=== PATIENT | female | born 1955 | race Two or more races ===

== ENCOUNTER 2020-11-08 09:01 | Outpatient (REF) | payer OTHER, SELFPAY ==
--- NOTE | 2020-11-08 09:38 | XR_ITS ---
EXAMINATION: XR KNEE, RIGHT CLINICAL INFORMATION: Right knee pain COMPARISON: None TECHNIQUE: Four views of the right knee. FINDINGS: There is mild loss of medial and patellofemoral compartment joint space. No bony erosive changes. There is calcification of the menisci. There is interstitial. Patellar enthesophyte with mild joint effusion suspected. XR/XR knee RT 4V IMPRESSION: Mild anterior suprapatellar enthesophyte and mild joint effusion. No visible acute fracture, dislocation or subluxation. Chondrocalcinosis.
[2020-11-08 11:15] LABS: Alanine Aminotransferase 9 U/L (0-31); Albumin Level 4.1 g/dL (3.5-5.0); Alkaline Phosphatase 82 U/L (39-117); Anion Gap 14 (12-20); Aspartate Amino Transferase 13 U/L (5-31); Bilirubin Total 0.4 mg/dL (0.0-1.0); Blood Urea Nitrogen 24 mg/dL (9-16); Calcium 8.4 mg/dL (8.4-10.2); Carbon Dioxide 25 mmol/L (22-29); Chloride 106 mmol/L (96-108); Cholesterol 162 mg/dL; Estimated Glomerular Filt Rate 38; Glucose Fasting 118 mg/dL (60-99); HDL Cholesterol 52 mg/dL; LDL Cholesterol Calculated 96 mg/dl; Potassium 4.6 mmol/l (3.3-5.1); Sodium 140 mmol/L (135-145); Total Protein 7.5 g/dL (6.5-8.0); Triglycerides 73 mg/dL
[2020-11-08 11:37] LABS: TSH reflex Free T4 1.01 mIU/mL (0.32-4.0); Vitamin D 25-OH Total 42.3 ng/mL (>30)
== END 2020-11-08 09:02 | disposition home or self-care (01) ==
LOC: HO.LAB 09:01
PROVIDERS: PCP Internal Medicine; Visit Provider Internal Medicine
DX: E11.22 Type 2 diabetes mellitus with diabetic chronic kidney disease (principal); E03.9 Hypothyroidism, unspecified; E55.9 Vitamin D deficiency, unspecified; M25.561 Pain in right knee
CPT/HCPCS: 36415; 73564; 80053; 80061; 82306; 84443

== ENCOUNTER → 2020-12-12 13:29 | Outpatient (BNVA) | payer OTHER, SELFPAY | PROVIDERS: Visit Provider Orthopaedic Surgery | DX: M11.261 Other chondrocalcinosis, right knee (principal); M17.11 Unilateral primary osteoarthritis, right knee; E11.65 Type 2 diabetes mellitus with hyperglycemia | CPT/HCPCS: 20610; 99202; J1100 ==

== ENCOUNTER 2021-11-19 08:00 | Outpatient (REF) | payer MEDICARE, SELFPAY ==
--- NOTE | ~2021-11-19 | MM_ITS ---
EXAMINATION: MM SCREENING DIGITAL BREAST TOMOSYNTHESIS, BILATERAL CLINICAL INFORMATION: Screening. Asymptomatic. The lifetime risk of breast cancer based on the Tyrer-Cuzick Model is 5%. COMPARISON: Mammography: 06/14/2015, 06/12/2014 TECHNIQUE: Digital breast tomosynthesis is performed in both the craniocaudal and mediolateral oblique views along with computer-aided detection (CAD). Synthesized 2D images are generated from the tomosynthesis. FINDINGS: There are scattered areas of fibroglandular density (ACR BI-RADS breast composition Category b). There are no significant masses, abnormal calcifications, or other abnormalities. There is no architectural abnormality. Scattered bilateral round and vascular calcifications are present. There are stable small bilateral incidental axillary tail nodes. The bilateral axilla and skin contours are unremarkable. There are no significant changes from prior studies. MM/MM tomosynthesis screening BI IMPRESSION: No mammographic evidence of malignancy. ASSESSMENT: BI-RADS 2: Benign RECOMMENDATION: Routine annual mammography screening. This patient's information was entered into a reminder system with a target due date for their next mammogram.
== END 2021-11-19 08:01 | disposition home or self-care (01) ==
LOC: HO.MAMMO 08:00
PROVIDERS: PCP Internal Medicine; Visit Provider Internal Medicine
DX: Z12.31 Encounter for screening mammogram for malignant neoplasm of breast (principal)
CPT/HCPCS: 77063; 77067

== ENCOUNTER 2021-12-01 09:10 | Outpatient (REF) | payer MEDICARE, SELFPAY ==
[2021-12-01 09:38] LABS: MANUAL DIFF FLAG NO
[2021-12-01 09:51] LABS: Basophils Percent Auto 0.4 % (0-2); Eosinophils Absolute Auto 0.1 X10*3/uL (0.0-0.4); Eosinophils Percent Auto 1.2 % (0-4); Hematocrit 39.1 % (37.0-47.0); Hemoglobin 12.8 g/dl (12.0-16.0); Imm Gran Abs Auto 0.01 X10*3/uL (0.00-0.03); Imm Gran Pct Auto 0.1 % (0.0-0.4); Lymphocytes Absolute Auto 2.6 X10*3/uL (1.2-4.9); Lymphocytes Percent Auto 37.3 % (20-40); Mean Corpuscular HGB Conc 32.7 g/dl (31.0-35.0); Mean Corpuscular Hemoglobin 32.1 pg (27.0-33.0); Monocytes Absolute Auto 0.7 X10*3/uL (0.1-1.2); Monocytes Percent Auto 9.7 % (2-11); Neutrophils Absolute Auto 3.5 x10*3/uL (2.0-8.3); Neutrophils Percent Auto 51.3 % (45-73); Platelet Count 182 X10*3/uL (160-400); Red Blood Count 3.99 X10*6/uL (4.20-5.50); White Blood Count 6.9 X10*3/uL (4.8-10.8)
[2021-12-01 10:02] LABS: Estimated Average Glucose 114 mg/dL; Hemoglobin A1c % 5.6 %
[2021-12-01 10:13] LABS: Creatinine Urine 57.55 mg/dL
[2021-12-01 10:21] LABS: Alanine Aminotransferase 10 U/L (0-31); Alkaline Phosphatase 68 U/L (39-117); Anion Gap 11 (12-20); Aspartate Amino Transferase 15 U/L (5-31); Bilirubin Total 0.4 mg/dL (0.0-1.0); Blood Urea Nitrogen 22 mg/dL (9-16); Calcium 9.3 mg/dL (8.4-10.2); Carbon Dioxide 26 mmol/L (22-29); Chloride 107 mmol/L (96-108); Cholesterol 172 mg/dL; Estimated Glomerular Filt Rate 40; Glucose Fasting 117 mg/dL (60-99); HDL Cholesterol 57 mg/dL; LDL Cholesterol Calculated 101 mg/dl; Potassium 4.7 mmol/L (3.3-5.1); Sodium 139 mmol/L (135-145); Total Protein 7.5 g/dL (6.5-8.0); Triglycerides 72 mg/dL
[2021-12-08 12:42] LABS: Vitamin D 25-OH, D2 <4 ng/mL; Vitamin D 25-OH, D3 38 ng/mL; Vitamin D 25-OH, Total 38 ng/mL (30-100)
== END 2021-12-01 09:11 | disposition home or self-care (01) ==
LOC: HO.LAB 09:10
PROVIDERS: PCP Internal Medicine; Visit Provider Internal Medicine
DX: E11.65 Type 2 diabetes mellitus with hyperglycemia (principal); E55.9 Vitamin D deficiency, unspecified; E78.5 Hyperlipidemia, unspecified; D64.9 Anemia, unspecified
CPT/HCPCS: 36415; 80053; 80061; 82043; 82306; 83036; 85025

== ENCOUNTER → 2022-04-16 14:49 | Outpatient (BNVA) | payer OTHER, SELFPAY | PROVIDERS: PCP Internal Medicine; Visit Provider Hospitalist | DX: J44.9 Chronic obstructive pulmonary disease, unspecified (principal); R91.8 Other nonspecific abnormal finding of lung field; F17.210 Nicotine dependence, cigarettes, uncomplicated | CPT/HCPCS: 99202 ==

== ENCOUNTER → 2022-07-14 13:43 | Outpatient (BNVA) | payer OTHER, SELFPAY | PROVIDERS: PCP Internal Medicine; Visit Provider Hospitalist | DX: J44.9 Chronic obstructive pulmonary disease, unspecified (principal); R91.8 Other nonspecific abnormal finding of lung field; F17.210 Nicotine dependence, cigarettes, uncomplicated | CPT/HCPCS: 99212 ==

== ENCOUNTER 2022-08-20 09:07 | Outpatient (REF) | payer OTHER, SELFPAY ==
[2022-08-20 10:48] LABS: Alanine Aminotransferase 9 U/L (0-31); Albumin Level 4.1 g/dL (3.5-5.0); Alkaline Phosphatase 86 U/L (39-117); Anion Gap 15 (12-20); Aspartate Amino Transferase 15 U/L (5-31); Bilirubin Total 0.5 mg/dL (0.0-1.0); Blood Urea Nitrogen 19 mg/dL (9-16); Calcium 9.1 mg/dL (8.4-10.2); Carbon Dioxide 24 mmol/L (22-29); Chloride 105 mmol/L (96-108); Cholesterol 201 mg/dL; Estimated Glomerular Filt Rate 44; Glucose Fasting 89 mg/dL (60-99); HDL Cholesterol 50 mg/dL; LDL Cholesterol Calculated 134 mg/dl; Potassium 4.2 mmol/L (3.3-5.1); Sodium 140 mmol/L (135-145); Total Protein 7.8 g/dL (6.5-8.0); Triglycerides 89 mg/dL
[2022-08-20 10:59] LABS: HIV AB/AG Nonreactive (Nonreactive); HIV Num 1 0.07 S/CO (0.00-0.99)
[2022-08-20 11:24] LABS: Creatinine Urine 294.54 mg/dL; Microalbum/Creatinine Ratio Ur 15.9 ug/mg cr
[2022-08-20 12:44] LABS: CT PCR NOT DETECTED (Not Detect.); NG PCR NOT DETECTED (Not Detect.)
[2022-08-21 06:00] LABS: Syphilis Screen Reactive (Nonreactive)
[2022-08-27 09:55] LABS: RPR Quantitative Non-Reactive (Nonreactive); T.Pallidum Particle Agg Test Reactive (Nonreactive)
== END 2022-08-20 09:08 | disposition home or self-care (01) ==
LOC: HO.XRAY 09:07
PROVIDERS: PCP Internal Medicine; Visit Provider Internal Medicine
DX: E11.22 Type 2 diabetes mellitus with diabetic chronic kidney disease (principal); I12.9 Hypertensive chronic kidney disease with stage 1 through stage 4 chronic kidney disease, or unspecified chronic kidney disease; N18.9 Chronic kidney disease, unspecified; E55.9 Vitamin D deficiency, unspecified; E78.5 Hyperlipidemia, unspecified; Z11.3 Encounter for screening for infections with a predominantly sexual mode of transmission
CPT/HCPCS: 36415; 80053; 80061; 82043; 82306; 86592; 86780; 87389; 87491; 87591

== ENCOUNTER → 2022-10-12 13:46 | Outpatient (BNVA) | payer OTHER, SELFPAY | PROVIDERS: PCP Internal Medicine; Visit Provider Hospitalist | DX: Z23 Encounter for immunization (principal); J44.9 Chronic obstructive pulmonary disease, unspecified; R91.8 Other nonspecific abnormal finding of lung field; F17.210 Nicotine dependence, cigarettes, uncomplicated | CPT/HCPCS: 90471; 90686; 99212 ==

== ENCOUNTER 2022-11-20 15:40 | Outpatient (REF) | payer OTHER, SELFPAY ==
--- NOTE | ~2022-11-20 | CT_ITS ---
EXAMINATION: CT CHEST SCREENING CLINICAL INFORMATION: Nicotine dependence. COMPARISON: None. TECHNIQUE: Multidetector volumetric CT imaging of the chest is performed without contrast using low dose technique. Additional 2D coronal and sagittal reformatted images and axial 3D maximum intensity projection (MIP) images are generated on the CT workstation. This CT examination was performed using dose optimization techniques as appropriate, variously including the following: *Automated exposure control *Adjustment of mA and/or kV according to patient size (this includes techniques or standardized protocols for targeted exams where dose is matched to indication/reason for exam; i.e. extremities or head) *Use of iterative reconstruction technique DLP: 45 mGy-cm FINDINGS: LUNGS: The lungs are well expanded. Mild atelectatic changes are seen in the right middle lobe and right lower lobe. Some ground-glass attenuation is seen in right middle and lower lobe segments. Also visualized is left lower lobe and lingular atelectasis. No consolidation, pulmonary nodules or lung collapse seen. A 3 mm calcified nodule is seen in right lower lobe posterior to inferior right pulmonary vein on axial image 280/5. MEDIASTINUM: The thyroid lobes are symmetric and normal. The central trachea and the bronchi widely patent. Heart size and the great vessels are normal caliber. Central trachea and the bronchi are widely patent. No pericardial effusion seen. CORONARY ARTERY CALCIFICATION: Mild coronary artery calcifications are present. PLEURA: There is no pleural effusion. No pleural mass or thickening. AXILLA: No abnormal axillary lymph nodes seen. UPPER ABDOMEN: Visualized liver, pancreas and bilateral adrenal glands are unremarkable. OSSEOUS STRUCTURES: No osseous abnormality seen. CT/CT lung screening IMPRESSION: 1. Atelectasis right middle lobe, lingula and bilateral lower lobes. 2. No pulmonary nodule or mass seen. 3. Trace coronary artery calcifications. ASSESSMENT: Lung-RADS category 2: Benign. RECOMMENDATION: Low-dose annual CT of the chest.
== END 2022-11-20 15:41 | disposition home or self-care (01) ==
LOC: HO.CT 15:40
PROVIDERS: PCP Internal Medicine; Visit Provider Physician Assistant Medical
DX: Z12.2 Encounter for screening for malignant neoplasm of respiratory organs (principal); F17.210 Nicotine dependence, cigarettes, uncomplicated
CPT/HCPCS: 71271; G0296

== ENCOUNTER 2023-10-12 09:24 | Outpatient (REF) | payer OTHER, SELFPAY ==
[2023-10-12 09:51] LABS: MANUAL DIFF FLAG NO
[2023-10-12 10:01] LABS: Basophils Percent Auto 0.4 % (0-2); Eosinophils Absolute Auto 0.1 X10*3/uL (0.0-0.4); Hematocrit 40.7 % (37.0-47.0); Hemoglobin 13.7 g/dl (12.0-16.0); Imm Gran Abs Auto 0.03 X10*3/uL (0.00-0.03); Imm Gran Pct Auto 0.4 % (0.0-0.4); Lymphocytes Absolute Auto 4.1 X10*3/uL (1.2-4.9); Lymphocytes Percent Auto 49.2 % (20-40); Mean Corpuscular HGB Conc 33.7 g/dl (31.0-35.0); Mean Corpuscular Hemoglobin 33.1 pg (27.0-33.0); Mean Corpuscular Volume 98.3 fL (80.0-98.0); Mean Platelet Volume 9.2 fL (9.4-12.3); Monocytes Absolute Auto 0.6 X10*3/uL (0.1-1.2); Monocytes Percent Auto 7.1 % (2-11); Neutrophils Absolute Auto 3.5 x10*3/uL (2.0-8.3); Neutrophils Percent Auto 41.9 % (45-73); Platelet Count 230 X10*3/uL (160-400); Red Blood Count 4.14 X10*6/uL (4.20-5.50); Red Cell Distribution Width 13.2 % (11.0-16.0); White Blood Count 8.3 X10*3/uL (4.8-10.8)
[2023-10-12 10:39] LABS: Alanine Aminotransferase 6 U/L (0-31); Albumin Level 3.9 g/dL (3.5-5.0); Alkaline Phosphatase 81 U/L (39-117); Anion Gap 13 (12-20); Aspartate Amino Transferase 13 U/L (5-31); Bilirubin Total 0.4 mg/dL (0.0-1.0); Blood Urea Nitrogen 8 mg/dL (9-16); Calcium 9.1 mg/dL (8.4-10.2); Carbon Dioxide 24 mmol/L (22-29); Chloride 107 mmol/L (96-108); Cholesterol 139 mg/dL (<200); Estimated Glomerular Filt Rate 40; Glucose Fasting 79 mg/dL (60-99); HDL Cholesterol 49 mg/dL (>40); LDL Cholesterol Calculated 74 mg/dL (<100); Potassium 4.2 mmol/L (3.3-5.1); Sodium 140 mmol/L (135-145); Total Protein 7.5 g/dL (6.5-8.0); Triglycerides 84 mg/dL (<150)
[2023-10-12 10:57] LABS: Vitamin D 25-OH Total 36.2 ng/mL (>30)
[2023-10-12 10:59] LABS: Vitamin B12 403 pg/mL (200-900)
[2023-10-12 12:27] LABS: Creatinine Urine 30.59 mg/dL; Microalbum/Creatinine Ratio Ur 29.4 ug/mg cr (<30)
== END 2023-10-12 09:25 | disposition home or self-care (01) ==
LOC: HO.LAB 09:24
PROVIDERS: PCP Internal Medicine; Visit Provider Internal Medicine
DX: E11.9 Type 2 diabetes mellitus without complications (principal); M51.36 Other intervertebral disc degeneration, lumbar region; E55.9 Vitamin D deficiency, unspecified; E53.8 Deficiency of other specified B group vitamins; E78.5 Hyperlipidemia, unspecified; D64.9 Anemia, unspecified
CPT/HCPCS: 36415; 80053; 80061; 82043; 82306; 82570; 82607; 82746; 85025

== ENCOUNTER 2023-10-14 11:21 | Outpatient (AMB) | payer OTHER, SELFPAY ==
[2023-10-14 12:00] VITALS: BP 132/70; PULSE 68; O2SAT 94; BMI 31.2
--- NOTE | 2023-10-14 12:00 | A.OFFPC_ITS ---
Vital Signs 10/14/23 12:00 Height 5 ft Weight 160 lb BMI 31.2 BP 132/70 Blood Pressure Location Lt brachial Position Sitting Pulse 68 Pulse Source Pulse Oximeter Pulse Oximetry (%) 94 Oxygen Delivery Method Room Air Intake Visit Reasons: cataract surgery on 10/27 Intake Note: Patient her for cataract surgery clearance 10/27 and 11/10 Cataract [facility] Issue Clerk Required: No Accompanied by: Self / Same As Patient Allergies aspirin Allergy (Intermediate, Verified 10/14/23 12:02) swelling, pruritus fentanyl Allergy (Intermediate, Verified 10/14/23 12:02) rash tramadol Allergy (Intermediate, Verified 10/14/23 12:02) nausea varenicline [From Chantix] Allergy (Intermediate, Verified 10/14/23 12:02) anxiety Medication List - Last Reconciled 10/14/23 by Tamra Perez MD amlodipine 10 mg PO DAILY 90 days atorvastatin 10 mg PO BEDTIME 90 days blood sugar diagnostic (FreeStyle Lite Strips) Use 1 test strip twice a day blood-glucose meter (FreeStyle Lite Meter kit) As directed bupropion HCl 150 mg (2 x 75 mg) PO BID 30 days cephalexin 500 mg PO Q12H 7 days cholecalciferol (vitamin D3) 50 mcg PO DAILY 90 days fluticasone propion-salmeterol 115-21 mcg/actuation (Advair HFA) 2 puffs inhalation Q12H 30 days insulin glargine (Lantus Solostar U-100 Insulin) 15 units (0.15 mL) subcut QPM 90 days latanoprost 0.005% 0 drps ophthalmic (eye) lisinopril 20 mg PO DAILY 90 days oxycodone 5 mg PO Q8H PRN 30 days pen needle, diabetic (AboutTime Pen Needle) Use 1 pen needle once a day quetiapine 400 mg PO BEDTIME quetiapine 200 mg PO BEDTIME Tobacco use date assessed: 12/03/22 Fall risk assessment: No Falls in past year Last assessed Fall Risk: 10/14/23 Dental Screening Dental Screen Date: 10/14/23 Did you have a dental visit in the last 12 months?: Yes Did you have a dental problem in the last 6 months where you did not have access to dental care?: No Was dental information given to patient?: Patient has dentist HPI HPI Comments History of Present Illness Details This is a 68-year-old female with diabetes mellitus type 2 on long-term current use of insulin, hypertension, COPD and opioid dependence due to chronic back pain that comes today for preop evaluation of bilateral cataract extraction removal and intra-ocular lens implant scheduled for October 27 and November 10. A1c in within goal. Blood pressure stable. COPD control with longstanding inhaler and use rescue inhaler prn. On opiates for chronic back pain in controlled environment. Labs are within normal limits. Denies any chest pain or shortness of breath. EKG still pending for medical clearance. She also has mild major depression stable with Seroquel. COUNT INCLUDES THE [facility] Medical History (Updated 10/14/23 @ 12:25 by Tamra Perez MD) Nicotine dependence, cigarettes, uncomplicated Type 2 diabetes mellitus COPD (chronic obstructive pulmonary disease) Chondrocalcinosis of right knee Osteoarthritis of right knee Hypovitaminosis D Opioid dependence Essential hypertension Lumbar degenerative disc disease Surgical History History of colonoscopy History of cholecystectomy (~1998) History of total abdominal hysterectomy and bilateral salpingo-oophorectomy (~1993) History of section History of lumbar discectomy (~2009) Family History Father CHF (congestive heart failure) CVD (cardiovascular disease) Mother Medical history unknown Family/Other FH: mental illness Son No problems noted. Social History Housing: Apartment Alcohol intake: never Patient Tobacco Use Status: Current everyday Tobacco user Tobacco use type: Cigarette Cigarette Packs Per Day: 0.5 Cigarettes Per Day: 10 Years Smoked: (onset 11yo, 1/2-3/4ppd x 56yrs, 35pyh) e-Cigarette/Vaping Use: Never Used Second Hand Smoke Exposure: No service: No Current occupational status: unemployed Cognitive needs: Yes Hearing needs: No Vision needs: Yes Questionnaire Thrive Questionnaire Date Thrive assessed: 12/03/22 DESMOND-7 AMB Questionnaire DESMOND-7 Date DESMOND - 7 assessed: 12/03/22 Source: Developed by Drs. Chato L. JennyJania parrish, Nico Tang and colleagues, with an educational autumn from [employer]. Review of Systems Const All systems reviewed & are unremarkable except as noted in HPI and below Eyes Reports no additional complaints, Denies change in vision and Denies other visual disturbances Card Denies chest pain at rest, Denies chest pain with activity, Denies edema, Denies irregular heart rhythm, Denies claudication, Denies dyspnea, Denies dyspnea on exertion, Denies orthopnea, Denies paroxysmal nocturnal dyspnea and Denies slow heart rate Resp Denies cough, Denies dyspnea and Denies dyspnea on exertion GI Denies abdominal pain, Denies change in bowel habits, Denies excessive flatus, Denies nausea and Denies vomiting Denies urinary incontinence, Denies urinary hesitancy and Denies urinary urgency Musc Denies abnormal gait, Denies atrophy, Denies deformity and Denies limited range of motion Skin/Breast Denies bleeding lesions, Denies changing lesions and Denies rash Neuro Denies abnormal gait, Denies behavioral changes and Denies lack of coordination Psych Denies behavioral changes Physical exam (Primary Care) Vital Signs: Last Vital Signs Pulse 68 10/14/23 12:00 BP 132/70 10/14/23 12:00 Pulse Ox 94 10/14/23 12:00 Oxygen Delivery Method Room Air 10/14/23 12:00 BMI result Body Mass Index 31.2 Tobacco/Smoking Status: Tobacco use Status Tobacco use date assessed 12/03/22 10/14/23 12:07 Patient Tobacco Use Status Current everyday Tobacco 10/14/23 12:07 Tobacco use type Cigarette 10/14/23 12:07 e-Cigarette/Vaping Use Never Used 10/14/23 12:07 Thrive Assessment: Date of Thrive Assessment Date Thrive assessed 12/03/22 10/14/23 12:07 Eyes General: appearance normal, both eyes and all related structures Eyelids: Yes eyelids normal Conjunctivae: conjunctivae normal Neck Neck: Yes normal visual inspection and Yes supple Resp Effort & Inspection: normal respiratory effort Auscultation: clear to auscultation bilaterally Cardio Jugular venous distension: no JVD Rate: regular rate Rhythm: regular rhythm Heart sounds: S1 normal heart sound present and S2 normal heart sound present Extrem General: Yes full ROM Office Procedures Flu Questionnaire Does the patient have a severe egg allergy?: No Does the patient have severe life threatening allergies?: No Does the patient have a fever or illness today?: No Has the patient ever had Guillain-[place] Syndrome?: No Has the patient ever had any past reaction to a flu shot?: No Results AMB Hemoglobin A1c AMB Hemoglobin A1c 5.5 % Last Edit by BRIANNA Quintero on 10/14/23 12:0 9 Immunizations flu vacc [id number] 6mos up(PF) 60 mcg(15 mcgx4)/0.5 mL IM syringe Performing Provider: Tamra Perez MD [facility] Administered by: BRIANNA Quintero on 10/14/23 12:19 Dose Route Admin Location Dispensed Lot Number Expiration Date NDC Internal Grinder 0.5 mL IM Left Deltoid 0.5 mL [id number] 04/23/24 [id number] [employer] VIS Given Date VIS Provided VIS Publication Date 10/14/23 Single Vaccine 21 Eligibility Eligibility Date Funding Source Not [facility] Eligible 10/14/23 Private Results Reviewed Results Reviewed: Laboratory Last Values Hgb A1c (Clinic) 5.5 % (4.0-6.0) 10/14/23 12:07 Assessment and Plan Assessment & Plan (1) Pre-op evaluation: Code(s): Z01.818 - Encounter for other preprocedural examination Plan: Labs within normal limits. EKG still pending for medical clearance. (2) Mild major depression: Code(s): F32.0 - Major depressive disorder, single episode, mild Plan: Continue Seroquel. (3) Opioid dependence: Code(s): F11.20 - Opioid dependence, uncomplicated Qualifiers: Substance use status: uncomplicated Qualified Code(s): F11.20 - Opioid dependence, uncomplicated Plan: Continue Percocet as needed. 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 A1c goal is equal or less than 7%. (5) COPD (chronic obstructive pulmonary disease): Code(s): J44.9 - Chronic obstructive pulmonary disease, unspecified Plan: Continue longstanding inhaler. Use rescue inhaler as needed. (6) Essential hypertension: Code(s): I10 - Essential (primary) hypertension Plan: Continue lisinopril. Blood pressure goal is equal or less than 130/80. 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
== END 2023-10-14 12:22 | disposition home or self-care (01) ==
PROVIDERS: PCP Internal Medicine; Visit Provider Internal Medicine
DX: E11.9 Type 2 diabetes mellitus without complications (principal); F32.0 Major depressive disorder, single episode, mild; J44.9 Chronic obstructive pulmonary disease, unspecified; Z23 Encounter for immunization; F11.20 Opioid dependence, uncomplicated; Z79.4 Long term (current) use of insulin; Z01.818 Encounter for other preprocedural examination; I10 Essential (primary) hypertension
CPT/HCPCS: 83036; 90471; 90686; 99214

== ENCOUNTER → 2023-10-14 12:26 | Outpatient (REF) | payer OTHER, SELFPAY ==
--- NOTE | 2023-10-14 12:30 | ECG_ITS ---
Test Reason : PREOP Blood Pressure : / mmHG Vent. Rate : 071 BPM Atrial Rate : 071 BPM P-R Int : 138 ms QRS Dur : 076 ms QT Int : 392 ms P-R-T Axes : 061 -18 067 degrees QTc Int : 425 ms Normal sinus rhythm Septal infarct (cited on or before 07-JUN-2014) Abnormal ECG When compared with ECG of 07-JUN-2014 10:29, No significant change was found Referred By: Tamra Perez Electronically Signed By:SOBEIDA HUGHES MD
== END ==
LOC: HO.CARD 12:26
PROVIDERS: PCP Internal Medicine; Visit Provider Internal Medicine
DX: Z01.818 Encounter for other preprocedural examination (principal)
CPT/HCPCS: 93005

== ENCOUNTER → 2023-10-14 12:30 | Outpatient (BNV) | payer OTHER, SELFPAY | PROVIDERS: PCP Internal Medicine; Visit Provider Internal Medicine Cardiovascular Disease | DX: R94.31 Abnormal electrocardiogram [ECG] [EKG] (principal) | CPT/HCPCS: 93010 ==

== ENCOUNTER 2023-10-27 15:18 | Outpatient (REF) | payer OTHER, SELFPAY | END 2023-10-27 15:19 | disposition home or self-care (01) | LOC: HO.LNP 15:18 | PROVIDERS: Visit Provider Ophthalmology | DX: Z77.21 Contact with and (suspected) exposure to potentially hazardous body fluids (principal) | CPT/HCPCS: 86704; 86706; 86803; 87340; 87389 ==

== ENCOUNTER 2023-12-02 14:33 | Outpatient (AMB) | payer OTHER, SELFPAY ==
--- NOTE | 2023-12-02 14:44 | A.OFFPC_ITS ---
Vital Signs 12/02/23 14:45 Height 5 ft Weight 160 lb BMI 31.2 BP 108/60 Blood Pressure Location Lt brachial Position Sitting Intake Visit Reasons: dm Intake Note: Patient here for a follow up DM [employer]st Required: No Accompanied by: Self / Same As Patient Allergies aspirin Allergy (Intermediate, Verified 12/02/23 15:03) swelling, pruritus fentanyl Allergy (Intermediate, Verified 12/02/23 15:03) rash tramadol Allergy (Intermediate, Verified 12/02/23 15:03) nausea varenicline [From Chantix] Allergy (Intermediate, Verified 12/02/23 15:03) anxiety Medication List - Last Reconciled 12/02/23 by Tamra Perez MD amlodipine 10 mg PO DAILY 90 days atorvastatin 10 mg PO BEDTIME 90 days blood sugar diagnostic (FreeStyle Lite Strips) Use 1 test strip twice a day blood-glucose meter (FreeStyle Lite Meter kit) As directed bupropion HCl 150 mg (2 x 75 mg) PO BID 30 days cholecalciferol (vitamin D3) 50 mcg PO DAILY 90 days fluticasone propion-salmeterol 115-21 mcg/actuation (Advair HFA) 2 puffs inhalation Q12H 30 days insulin glargine (Lantus Solostar U-100 Insulin) 15 units (0.15 mL) subcut QPM 90 days latanoprost 0.005% 0 drps ophthalmic (eye) lisinopril 20 mg PO DAILY 90 days oxycodone 5 mg PO Q8H PRN 30 days pen needle, diabetic (AboutTime Pen Needle) Use 1 pen needle once a day quetiapine 400 mg PO BEDTIME quetiapine 200 mg PO BEDTIME Tobacco use date assessed: 12/02/23 Fall risk assessment: No Falls in past year Last assessed Fall Risk: 12/02/23 Dental Screening Dental Screen Date: 12/02/23 Did you have a dental visit in the last 12 months?: No Did you have a dental problem in the last 6 months where you did not have access to dental care?: No Was dental information given to patient?: Patient has dentist HPI HPI Comments History of Present Illness Details This is a 68-year-old female with hypertension, diabetes mellitus type 2 on long-term current use of insulin, mild major depression, hyperlipidemia, opioid dependence and COPD that comes today for follow-up on her conditions. Blood pressure stable. A1c within goal. LDL close to goal. Depression well controlled with bupropion and Seroquel at bedtime. Has chronic back pain due to lumbar degenerative disc disease and has been on opiates to relieved this pain successfully. COPD stable with long-acting inhaler and use rescue inhaler as needed few times a month. COPD is follow by pulmonology. [facility] Medical History Nicotine dependence, cigarettes, uncomplicated Type 2 diabetes mellitus COPD (chronic obstructive pulmonary disease) Chondrocalcinosis of right knee Osteoarthritis of right knee Hypovitaminosis D Opioid dependence Essential hypertension Lumbar degenerative disc disease Surgical History History of colonoscopy History of cholecystectomy (~1998) History of total abdominal hysterectomy and bilateral salpingo-oophorectomy (~1993) History of section History of lumbar discectomy (~2009) Family History Father CHF (congestive heart failure) CVD (cardiovascular disease) Mother Medical history unknown Family/Other FH: mental illness Son No problems noted. Social History Housing: Apartment Alcohol intake: never Patient Tobacco Use Status: Current everyday Tobacco user Tobacco use type: Cigarette Cigarette Packs Per Day: 0.5 Cigarettes Per Day: 10 Years Smoked: (onset 11yo, 1/2-3/4ppd x 56yrs, 35pyh) e-Cigarette/Vaping Use: Never Used Second Hand Smoke Exposure: No service: No Current occupational status: unemployed Cognitive needs: Yes Hearing needs: No Vision needs: Yes Questionnaire PHQ-9 Over the last 2 weeks, how often have you been bothered by any of the following problems? 1. Little interest or pleasure in doing things: not at all 2. Feeling down, depressed, or hopeless: not at all 3. Trouble falling or staying asleep, or sleeping too much: not at all 4. Feeling tired or having little energy: not at all 5. Poor appetite or overeating: not at all 6. Feeling bad about yourself - or that you are a failure or have let yourself or your family down: not at all 7. Trouble concentrating on things, such as reading the newspaper or watching television: not at all 8. Moving or speaking so slowly that other people could have noticed. Or the opposite - being so fidgety or restless that you have been moving around a lot more than usual: not at all 9. Thoughts that you would be better off or of hurting yourself in some way: not at all Total score: 0 Depression Screening Interpretation: Negative Depression Screening Done: Yes 55339 - PHQ-9 Billing: Yes Source: Developed by Drs. Chato Alvarado, Jania Carpio, Nico Tang and colleagues, with an educational autumn from [employer]. Thrive Questionnaire Date Thrive assessed: 12/02/23 I am a: Patient What is your living situation today?: I have a steady place to live Within the past 12 months, did the food you bought not last and you didn't have the money to get more?: Never true Within the past 12 months, did you worry whether your food would run out before you got money to buy more?: Never true Do you have trouble paying for medicines?: No Do you have trouble getting transportation to medical appointments?: No Do you have trouble paying your heating and electricity bill?: No Do you have trouble taking care of your child, family member or friend?: No Do you have trouble with day-to-day activities such as bathing, preparing meals, shopping, managing finances, etc.?: No Are you currently unemployed and looking for a job?: No Are you interested in more education?: No Please select the resources that you would like help with: None Currently or been in a relationship where the following occur: no concerns reported THRIVE Score: 0 AUDIT C Alcohol Use Questionnaire (AUDIT-C) 1. How often do you have a drink containing alcohol?: Never Total Score: 0 Score Reviewed/Action Taken: No DESMOND-7 AMB Questionnaire DESMOND-7 Date DESMOND - 7 assessed: 12/02/23 Feeling nervous, anxious, or on edge: 0 = Not at all Not being able to stop or control worryin = Not at all Worrying too much about different things: 0 = Not at all Trouble relaxin = Not at all Being so restless that it is hard to sit still: 0 = Not at all Becoming easily annoyed or irritable: 0 = Not at all Feeling afraid as if something awful might happen: 0 = Not at all Total DESMOND-7 score (0-4 normal; 5-9 mild; 10-14 moderate; 15-21 severe): 0 Source: Developed by Drs. Chato Alvarado, Jania Carpio, Nico Tang and colleagues, with an educational autumn from [employer]. DESMOND-7 Assessment Billing DESMOND-7 Assessment Tool: DESMOND-7 Assessment 72825 Review of Systems Const All systems reviewed & are unremarkable except as noted in HPI and below Eyes Reports no additional complaints, Denies change in vision and Denies other visual disturbances Card Denies chest pain at rest, Denies chest pain with activity, Denies edema, Denies irregular heart rhythm, Denies claudication, Denies dyspnea, Denies dyspnea on exertion, Denies orthopnea, Denies paroxysmal nocturnal dyspnea and Denies slow heart rate Resp Denies cough, Denies dyspnea and Denies dyspnea on exertion GI Denies abdominal pain, Denies change in bowel habits, Denies excessive flatus, Denies nausea and Denies vomiting Denies urinary incontinence, Denies urinary hesitancy and Denies urinary urgency Musc Denies abnormal gait, Denies atrophy, Denies deformity and Denies limited range of motion Skin/Breast Denies bleeding lesions, Denies changing lesions and Denies rash Neuro Denies abnormal gait, Denies behavioral changes and Denies lack of coordination Psych Denies behavioral changes Physical exam (Primary Care) Vital Signs: Last Vital Signs BP 108/60 12/02/23 14:45 BMI result Body Mass Index 31.2 Tobacco/Smoking Status: Tobacco use Status Tobacco use date assessed 12/02/23 12/02/23 14:53 Patient Tobacco Use Status Current everyday Tobacco 12/02/23 14:53 Tobacco use type Cigarette 12/02/23 14:53 e-Cigarette/Vaping Use Never Used 12/02/23 14:53 PHQ-9: PHQ-9 Score PHQ-9: Total score 0 12/02/23 17:30 Depression Screening Interpretation: Negative Thrive Assessment: Date of Thrive Assessment Date Thrive assessed 12/02/23 12/02/23 14:53 Currently or been in a relationship where the following occur: no concerns reported Eyes General: appearance normal, both eyes and all related structures Eyelids: Yes eyelids normal Conjunctivae: conjunctivae normal Neck Neck: Yes normal visual inspection and Yes supple Resp Effort & Inspection: normal respiratory effort Auscultation: clear to auscultation bilaterally Cardio Jugular venous distension: no JVD Rate: regular rate Rhythm: regular rhythm Heart sounds: S1 normal heart sound present and S2 normal heart sound present Extrem General: Yes full ROM Assessment and Plan Assessment & Plan (1) Mild major depression: Code(s): F32.0 - Major depressive disorder, single episode, mild Plan: Continue bupropion and Seroquel. (2) Type 2 diabetes mellitus: Code(s): E11.9 - Type 2 diabetes mellitus without complications Qualifiers: Diabetes mellitus complication status: without complication Diabetes mellitus nursing home insulin use: with machine long goods helper use Qualified Code(s): E11.9 - Type 2 diabetes mellitus without complications; Z79.4 - alf (current) use of insulin Plan: Continue insulin. A1c goal is equal or less than 7%. (3) COPD (chronic obstructive pulmonary disease): Code(s): J44.9 - Chronic obstructive pulmonary disease, unspecified Plan: Continue Advair. Use rescue inhaler as needed. Follow-up with pulmonology. (4) Opioid dependence: Code(s): F11.20 - Opioid dependence, uncomplicated Qualifiers: Substance use status: uncomplicated Qualified Code(s): F11.20 - Opioid dependence, uncomplicated Plan: Continue opiates as needed for lumbar degenerative disc disease. (5) Essential hypertension: Code(s): I10 - Essential (primary) hypertension Plan: Continue lisinopril. Blood pressure goal is equal or less than 130/80. (6) Hyperlipidemia LDL goal <70: Code(s): E78.5 - Hyperlipidemia, unspecified Plan: Continue statins. LDL goal is less than 70. Orders: Orders Lipid Panel 5 Months E78.5 - Hyperlipidemia, unspecified Vitamin D 25-OH Total 5 Months E55.9 - Vitamin D deficiency, unspecified Microalbumin, Random (w Creat) 5 Months E11.9 - Type 2 diabetes mellitus without complications Comprehensive Perry. Panel Fast 5 Months I10 - Essential (primary) hypertension Medications: Refilled lisinopril 20 mg PO DAILY 90 days 90 tabs 0RF Coding Level of Care Code Est Pt Level 4 (16504) Diagnoses Mild major depression F32.0 Type 2 diabetes mellitus without complication, with long-term current use of insulin E11.9; Z79.4 Diabetes mellitus complication status: without complication Diabetes mellitus machine long goods helper insulin use: with nursing home use COPD (chronic obstructive pulmonary disease) J44.9 Uncomplicated opioid dependence F11.20 Substance use status: uncomplicated Essential hypertension I10 Hyperlipidemia LDL goal <70 E78.5 Additional Codes DESMOND-7 Assessment Billing - DESMOND-7 Assessment Tool: DESMOND-7 Assessment [id number] ([id number]) Time Spent (min) 24
[2023-12-02 14:45] VITALS: BP 108/60; BMI 31.2
== END 2023-12-02 15:10 | disposition home or self-care (01) ==
PROVIDERS: PCP Internal Medicine; Visit Provider Internal Medicine
DX: E11.69 Type 2 diabetes mellitus with other specified complication (principal); F32.0 Major depressive disorder, single episode, mild; Z79.4 Long term (current) use of insulin; J44.9 Chronic obstructive pulmonary disease, unspecified; F11.20 Opioid dependence, uncomplicated; E78.5 Hyperlipidemia, unspecified; I10 Essential (primary) hypertension
CPT/HCPCS: 99214

== ENCOUNTER 2024-02-11 13:29 | Outpatient (REF) | payer OTHER, SELFPAY ==
--- NOTE | ~2024-02-11 | MM_ITS ---
EXAMINATION: MM SCREENING DIGITAL BREAST TOMOSYNTHESIS, BILATERAL CLINICAL INFORMATION: Screening. Asymptomatic. COMPARISON: Mammography: This study is compared with prior exams dating back to 2015. TECHNIQUE: Digital breast tomosynthesis is performed in both the craniocaudal and mediolateral oblique views along with computer-aided detection (CAD). Synthesized 2D images are generated from the tomosynthesis. FINDINGS: There are scattered areas of fibroglandular density (ACR BI-RADS breast composition Category b). There are no significant masses, abnormal calcifications, or other abnormalities. MM/MM tomosynthesis screening BI IMPRESSION: No mammographic evidence of malignancy. ASSESSMENT: BI-RADS BI-RADS 1 - Negative RECOMMENDATION: Routine annual mammography screening. 1 year F/U This examination should not preclude the clinical evaluation of a suspicious palpable abnormality. This patient's information was entered into a reminder system with a target due date for their next mammogram.
== END 2024-02-11 13:30 | disposition home or self-care (01) ==
LOC: HO.MAMMO 13:29
PROVIDERS: PCP Internal Medicine; Visit Provider Internal Medicine
DX: Z12.31 Encounter for screening mammogram for malignant neoplasm of breast (principal)
CPT/HCPCS: 77063; 77067

== ENCOUNTER → 2024-02-11 13:45 | Outpatient (BNV) | payer OTHER, SELFPAY | PROVIDERS: PCP Internal Medicine; Visit Provider Radiology Diagnostic Radiology | DX: Z12.31 Encounter for screening mammogram for malignant neoplasm of breast (principal) | CPT/HCPCS: 77063; 77067 ==

== ENCOUNTER 2024-04-25 12:45 | Outpatient (AMB) | payer OTHER, SELFPAY ==
[2024-04-25 12:47] VITALS: BP 102/56; PULSE 64; O2SAT 98; BMI 30.5
--- NOTE | 2024-04-25 12:47 | MHC.PC.OV ---
Vital Signs 04/25/24 12:47 Height 5 ft Weight 156 lb 0.6 oz BMI 30.5 BP 102/56 L Blood Pressure Location Lt brachial Position Sitting Pulse 64 Pulse Source Pulse Oximeter Pulse Oximetry (%) 98 Oxygen Delivery Method Room Air Intake Visit Reasons: Annual Exam- see comments Fondant Cooker Required: No Accompanied by: Self / Same As Patient Allergies aspirin Allergy (Intermediate, Verified 04/25/24 13:16) swelling, pruritus fentanyl Allergy (Intermediate, Verified 04/25/24 13:16) rash tramadol Allergy (Intermediate, Verified 04/25/24 13:16) nausea varenicline [From Chantix] Allergy (Intermediate, Verified 04/25/24 13:16) anxiety Medication List - Last Reconciled 04/25/24 by Tamra Perez MD amlodipine 10 mg PO DAILY 90 days atorvastatin 10 mg PO BEDTIME 90 days blood sugar diagnostic (FreeStyle Lite Strips) Use 1 test strip twice a day blood-glucose meter (FreeStyle Lite Meter kit) As directed bupropion HCl 150 mg (2 x 75 mg) PO BID 30 days cholecalciferol (vitamin D3) 50 mcg PO DAILY 90 days fluticasone propion-salmeterol 115-21 mcg/actuation (Advair HFA) 2 puffs inhalation Q12H 30 days insulin glargine (Lantus Solostar U-100 Insulin) 15 units (0.15 mL) subcut QPM 90 days latanoprost 0.005% 0 drps ophthalmic (eye) lisinopril 20 mg PO DAILY 90 days nicotine (polacrilex) 4 mg buccal Q8H PRN 30 days oxycodone 5 mg PO Q8H PRN 30 days pen needle, diabetic (AboutTime Pen Needle) Use 1 pen needle once a day quetiapine 400 mg PO BEDTIME quetiapine 200 mg PO BEDTIME Tobacco use date assessed: 12/02/23 Fall risk assessment: No Falls in past year Last assessed Fall Risk: 04/25/24 Dental Screening Dental Screen Date: 12/02/23 Did you have a dental visit in the last 12 months?: Yes Did you have a dental problem in the last 6 months where you did not have access to dental care?: No Was dental information given to patient?: Patient has dentist HPI HPI Comments History of Present Illness Details This is a 69-year-old female with diabetes mellitus type 2, opioid dependence, COPD and mild recurrent major depression that comes for her physical exam. A1c within goal. Opioid dependence has been stable. COPD well control and follow by pulmonology. Depression stable with medications and follow by Psychiatry. Colonoscopy was over 10 years ago and will be refer. Mammogram done 2023 was normal. [facility] Medical History Nicotine dependence, cigarettes, uncomplicated Type 2 diabetes mellitus COPD (chronic obstructive pulmonary disease) Chondrocalcinosis of right knee Osteoarthritis of right knee Hypovitaminosis D Opioid dependence Essential hypertension Lumbar degenerative disc disease Surgical History History of colonoscopy History of cholecystectomy (~1998) History of total abdominal hysterectomy and bilateral salpingo-oophorectomy (~1993) History of section History of lumbar discectomy (~2009) Family History Father CHF (congestive heart failure) CVD (cardiovascular disease) Mother Medical history unknown Family/Other FH: mental illness Son No problems noted. Social History Housing: Apartment Alcohol intake: never Patient Tobacco Use Status: Current everyday Tobacco user Tobacco use type: Cigarette Cigarette Packs Per Day: 0.5 Cigarettes Per Day: 10 Years Smoked: (onset 11yo, 1/2-3/4ppd x 56yrs, 35pyh) e-Cigarette/Vaping Use: Never Used Second Hand Smoke Exposure: No service: No Current occupational status: unemployed Cognitive needs: Yes Hearing needs: No Vision needs: Yes Questionnaire PHQ-9 Over the last 2 weeks, how often have you been bothered by any of the following problems? 1. Little interest or pleasure in doing things: several days 2. Feeling down, depressed, or hopeless: several days 3. Trouble falling or staying asleep, or sleeping too much: not at all 4. Feeling tired or having little energy: not at all 5. Poor appetite or overeating: not at all 6. Feeling bad about yourself - or that you are a failure or have let yourself or your family down: not at all 7. Trouble concentrating on things, such as reading the newspaper or watching television: not at all 8. Moving or speaking so slowly that other people could have noticed. Or the opposite - being so fidgety or restless that you have been moving around a lot more than usual: not at all 9. Thoughts that you would be better off or of hurting yourself in some way: not at all Total score: 2 Depression Screening Interpretation: Positive Depression Screening Follow-up: Existing condition, In treatment, Community Mental Health Worker F/U and Follow-up Visit Requested Depression Screening Done: Yes 56761 - PHQ-9 Billing: Yes Source: Developed by Drs. Chato Alvarado, Jania Carpio, Nico Tang and colleagues, with an educational autumn from [employer]. Thrive Questionnaire Date Thrive assessed: 12/02/23 I am a: Patient What is your living situation today?: I have a steady place to live Within the past 12 months, did the food you bought not last and you didn't have the money to get more?: Never true Within the past 12 months, did you worry whether your food would run out before you got money to buy more?: Never true Do you have trouble paying for medicines?: No Do you have trouble getting transportation to medical appointments?: No Do you have trouble paying your heating and electricity bill?: No Do you have trouble taking care of your child, family member or friend?: No Do you have trouble with day-to-day activities such as bathing, preparing meals, shopping, managing finances, etc.?: No Are you currently unemployed and looking for a job?: No Are you interested in more education?: No Please select the resources that you would like help with: None THRIVE Score: 0 AUDIT C Alcohol Use Questionnaire (AUDIT-C) 1. How often do you have a drink containing alcohol?: Never 3. How often do you have six or more drinks on one occasion?: Never Total Score: 0 Score Reviewed/Action Taken: No DESMOND-7 AMB Questionnaire DESMOND-7 Date DESMOND - 7 assessed: 12/02/23 Feeling nervous, anxious, or on edge: 0 = Not at all Not being able to stop or control worryin = Not at all Worrying too much about different things: 0 = Not at all Trouble relaxin = Not at all Being so restless that it is hard to sit still: 0 = Not at all Becoming easily annoyed or irritable: 0 = Not at all Feeling afraid as if something awful might happen: 0 = Not at all Total DESMOND-7 score (0-4 normal; 5-9 mild; 10-14 moderate; 15-21 severe): 0 Source: Developed by Drs. Chato Alvarado, Jania Carpio, Nico Tang and colleagues, with an educational autumn from [employer]. DESMOND-7 Assessment Billing DESMOND-7 Assessment Tool: DESMOND-7 Assessment 73681 Review of Systems Const All systems reviewed & are unremarkable except as noted in HPI and below Card Denies chest pain at rest, Denies chest pain with activity, Denies edema, Denies irregular heart rhythm, Denies claudication, Denies dyspnea, Denies dyspnea on exertion, Denies orthopnea, Denies paroxysmal nocturnal dyspnea and Denies slow heart rate Resp Denies cough, Denies dyspnea and Denies dyspnea on exertion GI Denies abdominal pain, Denies change in bowel habits, Denies excessive flatus, Denies nausea and Denies vomiting Denies urinary incontinence, Denies urinary hesitancy and Denies urinary urgency Musc Denies atrophy, Denies deformity and Denies limited range of motion Skin/Breast Denies bleeding lesions, Denies changing lesions and Denies rash Physical exam (Primary Care) Vital Signs: Last Vital Signs Pulse 64 04/25/24 12:47 BP 102/56 L 04/25/24 12:47 Pulse Ox 98 04/25/24 12:47 Oxygen Delivery Method Room Air 04/25/24 12:47 BMI result Body Mass Index 30.5 BMI Assessment/Plan discussion: High BMI High, discussed plan: lifestyle, weight reduction, dietary and physical activity Tobacco/Smoking Status: Tobacco use Status Tobacco use date assessed 12/02/23 04/25/24 12:49 Patient Tobacco Use Status Current everyday Tobacco 04/25/24 12:49 Tobacco use type Cigarette 04/25/24 12:49 e-Cigarette/Vaping Use Never Used 04/25/24 12:49 Are you ready to quit: Yes Tobacco cessation counseling provided: Yes Items discussed: [employer]uitWorks Relapse Prevention: discussed the importance of a supportive environment, discussed negative mood or depression after quitting, weight gain after smoking is common and discussed dietary, exercise and/or lifestyle changes Number of minutes spent counselin CPT code: 72562 - 4-10 Minutes PHQ-9: PHQ-9 Score PHQ-9: Total score 0 04/25/24 13:57 Depression Screening Interpretation: Positive Depression Screening Follow-up: Existing condition, In treatment, Community Mental Health Worker F/U and Follow-up Visit Requested Thrive Assessment: Date of Thrive Assessment Date Thrive assessed 12/02/23 04/25/24 12:49 HENMT Head: Yes normal to inspection, Yes normocephalic and Yes atraumatic Ears: external ears normal Eyes General: appearance normal, both eyes and all related structures Eyelids: Yes eyelids normal Conjunctivae: conjunctivae normal Neck Neck: Yes normal visual inspection and Yes supple Resp Effort & Inspection: normal respiratory effort Auscultation: clear to auscultation bilaterally Cardio Jugular venous distension: no JVD Rate: regular rate Rhythm: regular rhythm Heart sounds: S1 normal heart sound present and S2 normal heart sound present GI Inspection: Yes normal to inspection Palpation (GI): Soft to palpation and nontender Auscultation: normal bowel sounds Skin General skin exam: no rashes or lesions noted Neuro General: no focal motor deficits Extrem General: Yes full ROM Psych Appearance: grossly normal Results AMB Hemoglobin A1c AMB Hemoglobin A1c 5.6 % Last Edit by BRIANNA Mcnamara on 04/25/24 13:00 Results Reviewed Results Reviewed: Laboratory Last Values Hgb A1c (Clinic) 5.6 % (4.0-6.0) 04/25/24 09:04 Assessment and Plan Assessment & Plan (1) Physical exam: Code(s): Z00.00 - Encounter for general adult medical examination without abnormal findings Plan: Repeat in a year. (2) Mild major depression: Code(s): F32.0 - Major depressive disorder, single episode, mild Plan: Continue bupropion. Follow-up with psychiatry. (3) Opioid dependence: Code(s): F11.20 - Opioid dependence, uncomplicated Qualifiers: Substance use status: uncomplicated Qualified Code(s): F11.20 - Opioid dependence, uncomplicated Plan: Continue oxycodone as needed. (4) Type 2 diabetes mellitus: Code(s): E11.9 - Type 2 diabetes mellitus without complications Qualifiers: Diabetes mellitus ferry terminal agent insulin use: with mcc use Diabetes mellitus complication status: without complication Qualified Code(s): E11.9 - Type 2 diabetes mellitus without complications; Z79.4 - ad terminal makeup operator (current) use of insulin Plan: Continue insulin. A1c goal is equal or less than 7%. (5) COPD (chronic obstructive pulmonary disease): Code(s): J44.9 - Chronic obstructive pulmonary disease, unspecified Plan: Continue long-acting inhaler. Use rescue inhaler as needed. Orders: Orders Lipid Panel Today E78.5 - Hyperlipidemia, unspecified Microalbumin, Random (w Creat) Today E11.9 - Type 2 diabetes mellitus without complications Vitamin D 25-OH Total Today E55.9 - Vitamin D deficiency, unspecified Vitamin B12 and Folate Today E53.8 - Deficiency of other specified B group vitamins IRON PROFILE Today D64.9 - Anemia, unspecified Comprehensive [place]. Panel Fast Today Z00.00 - Encounter for general adult medical examination without abnormal findings AMB Hemoglobin A1c Today E11.9 - Type 2 diabetes mellitus without complications, Z79.4 - ad terminal makeup operator (current) use of insulin Complete Blood Count Auto Diff Today D64.9 - Anemia, unspecified Referrals Gastroenterology Referral Z12.11 - Encounter for screening for malignant neoplasm of colon Coding Level of Care Code Est Pt Prev Care >65y(25534) Diagnoses Physical exam Z00.00 Mild major depression F32.0 Uncomplicated opioid dependence F11.20 Substance use status: uncomplicated Type 2 diabetes mellitus without complication, with long-term current use of insulin E11.9; Z79.4 Diabetes mellitus ferry terminal agent insulin use: with ferry terminal agent use Diabetes mellitus complication status: without complication COPD (chronic obstructive pulmonary disease) J44.9 Additional Codes DESMOND-7 Assessment Billing - DESMOND-7 Assessment Tool: DESMOND-7 Assessment 23545 ([id number]) Vital Signs *Quality* - CPT code: 98711 - 4-10 Minutes ([id number]) Time Spent (min) 35
== END 2024-04-25 13:25 | disposition home or self-care (01) ==
PROVIDERS: PCP Internal Medicine; Visit Provider Internal Medicine
DX: Z00.00 Encounter for general adult medical examination without abnormal findings (principal); F32.0 Major depressive disorder, single episode, mild; E11.9 Type 2 diabetes mellitus without complications; Z79.4 Long term (current) use of insulin; F11.20 Opioid dependence, uncomplicated; J44.9 Chronic obstructive pulmonary disease, unspecified; F17.210 Nicotine dependence, cigarettes, uncomplicated
CPT/HCPCS: 83036; 99397; 99406

== ENCOUNTER 2024-05-01 14:55 | Outpatient (REF) | payer OTHER, SELFPAY ==
--- NOTE | ~2024-05-01 | CT_ITS ---
EXAMINATION: CT LOW-DOSE SCREENING CHEST WITHOUT CONTRAST CLINICAL INFORMATION: Nicotine dependence, cigarettes, uncomplicated. The patient is a current smoker with a 56 pack-year history of smoking. COMPARISON: CT chest 11/20/2022. TECHNIQUE: Multidetector volumetric CT imaging of the chest is performed on a Siemens SOMATOM Definition scanner without contrast using low dose technique. Additional 2D coronal and sagittal reformatted images and axial 3D maximum intensity projection (MIP) images are generated on the CT workstation. This CT examination was performed using dose optimization techniques as appropriate, variously including the following: *Automated exposure control *Adjustment of mA and/or kV according to patient size (this includes techniques or standardized protocols for targeted exams where dose is matched to indication/reason for exam; i.e. extremities or head) *Use of iterative reconstruction technique TOTAL EXAM DLP: 42 mGy-cm. CTDIvol: 1.43 mGy. FINDINGS: PULMONARY NODULES: There is a 3 mm noncalcified nodule at the left apex unchanged (5:49 compare prior 5:50). No new, increasing sized or suspicious pulmonary nodule is seen. Medley images of all have been saved. LUNGS: Lungs bilaterally symmetrically expanded. Scattered areas of atelectasis are seen. There is an area of bronchial crowding and increased bronchial thickening seen in the left lower lobe as well as in the right middle lobe along the major fissure, both slightly increased when compared to the prior. There is mild emphysema and mild bronchial thickening. Multiple scattered areas of linear scarring/atelectasis are seen. No effusion or pneumothorax. Central airways patent. MEDIASTINUM: No mediastinal, hilar or axillary adenopathy or free fluid collection. CORONARY ARTERY CALCIFICATION: Moderate. THYROID GLAND: Unremarkable to the extent seen. CARDIOVASCULAR STRUCTURES: Aortic and heart size normal. No pericardial effusion. CHEST WALL/AXILLA: Unremarkable. UPPER ABDOMEN: Included portions of the solid organs in the upper abdomen unremarkable on noncontrast imaging. Small calcification present in the hue hepatis unchanged. OSSEOUS STRUCTURES: No suspicious focal findings. CT/CT lung screening IMPRESSION: 1. No evidence of pulmonary malignancy. 2. Mild emphysema and bronchial thickening. 3. Moderate coronary calcifications. 4. Incidental findings (s category): No significant new incidental findings. ASSESSMENT: 1. Lung-RADS Category 2: Benign appearance or behavior of nodules. N/A RECOMMENDATION: Continued routine annual low-dose CT lung screening in 1 year is recommended. An order for CT CHEST LOW DOSE CANCER SCREENING ([id number]) can be placed.
== END 2024-05-01 14:56 | disposition home or self-care (01) ==
LOC: HO.CT 14:55
PROVIDERS: PCP Internal Medicine; Visit Provider Physician Assistant Medical
DX: Z12.2 Encounter for screening for malignant neoplasm of respiratory organs (principal); F17.210 Nicotine dependence, cigarettes, uncomplicated
CPT/HCPCS: 71271

== ENCOUNTER 2024-06-30 08:36 | Outpatient (REF) | payer OTHER, SELFPAY ==
[2024-06-30 08:49] LABS: MANUAL DIFF FLAG NO
[2024-06-30 08:55] LABS: Basophils Percent Auto 0.4 % (0-2); Eosinophils Absolute Auto 0.1 X10*3/uL (0.0-0.4); Eosinophils Percent Auto 1.8 % (0-4); Hematocrit 39.7 % (37.0-47.0); Hemoglobin 13.2 g/dl (12.0-16.0); Imm Gran Abs Auto 0.03 X10*3/uL (0.00-0.03); Imm Gran Pct Auto 0.4 % (0.0-0.4); Lymphocytes Absolute Auto 2.8 X10*3/uL (1.2-4.9); Lymphocytes Percent Auto 36.8 % (20-40); Mean Corpuscular HGB Conc 33.2 g/dl (31.0-35.0); Mean Corpuscular Hemoglobin 32.8 pg (27.0-33.0); Mean Corpuscular Volume 98.5 fL (80.0-98.0); Mean Platelet Volume 8.9 fL (9.4-12.3); Monocytes Absolute Auto 0.6 X10*3/uL (0.1-1.2); Monocytes Percent Auto 8.4 % (2-11); Neutrophils Percent Auto 52.2 % (45-73); Platelet Count 230 X10*3/uL (160-400); Red Blood Count 4.03 X10*6/uL (4.20-5.50); White Blood Count 7.6 X10*3/uL (4.8-10.8)
[2024-06-30 09:33] LABS: Alanine Aminotransferase 14 U/L (0-31); Albumin Level 3.8 g/dL (3.5-5.0); Alkaline Phosphatase 97 U/L (39-117); Anion Gap 11 (12-20); Aspartate Amino Transferase 16 U/L (5-31); Bilirubin Total 0.2 mg/dL (0.0-1.0); Blood Urea Nitrogen 22 mg/dL (9-16); Calcium 9.2 mg/dL (8.4-10.2); Carbon Dioxide 23 mmol/L (22-29); Chloride 106 mmol/L (96-108); Cholesterol 155 mg/dL (<200); Estimated Glomerular Filt Rate 40; Glucose Fasting 154 mg/dL (60-99); HDL Cholesterol 47 mg/dL (>40); Iron 56 mcg/dL (30-160); LDL Cholesterol Calculated 92 mg/dL (<100); Percent Iron Saturation 26 % (15-50); Potassium 4.3 mmol/L (3.3-5.1); Sodium 136 mmol/L (135-145); Total Iron Binding Capacity 215 mcg/dL (228-428); Total Protein 7.4 g/dL (6.5-8.0); Triglycerides 80 mg/dL (<150); Unsaturated Iron Binding 159 ug/dL
[2024-06-30 09:48] LABS: Vitamin D 25-OH Total 34.2 ng/mL (>30)
[2024-06-30 10:10] LABS: Folate 6.7 ng/mL (> or = 4.0); Vitamin B12 347 pg/mL (200-900)
[2024-06-30 11:05] LABS: Creatinine Urine 111.67 mg/dL; Microalbum/Creatinine Ratio Ur 10.7 ug/mg cr (<30)
== END 2024-06-30 08:37 | disposition home or self-care (01) ==
LOC: HO.LAB 08:36
PROVIDERS: PCP Internal Medicine; Visit Provider Internal Medicine
DX: D64.9 Anemia, unspecified (principal); E78.5 Hyperlipidemia, unspecified; E55.9 Vitamin D deficiency, unspecified; I10 Essential (primary) hypertension; E11.9 Type 2 diabetes mellitus without complications; E53.8 Deficiency of other specified B group vitamins
CPT/HCPCS: 36415; 80053; 80061; 82043; 82306; 82570; 82607; 82746; 83540; 85025

== ENCOUNTER 2024-09-07 13:29 | Outpatient (AMB) | payer OTHER, SELFPAY ==
[2024-09-07 13:34] VITALS: BP 140/78; PULSE 69; O2SAT 91; BMI 30.7
--- NOTE | 2024-09-07 13:34 | MHC.PC.OV ---
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 Converter Operator Required: No Accompanied by: Self / Same As Patient Allergies aspirin Allergy (Intermediate, Verified 09/07/24 13:49) swelling, pruritus fentanyl Allergy (Intermediate, Verified 09/07/24 13:49) rash tramadol Allergy (Intermediate, Verified 09/07/24 13:49) nausea varenicline [From Chantix] Allergy (Intermediate, Verified 09/07/24 13:49) anxiety Medication List - Last Reconciled 09/07/24 by Tamra Perez MD amlodipine 10 mg PO DAILY 90 days atorvastatin 10 mg PO BEDTIME 90 days blood sugar diagnostic (FreeStyle Lite Strips) Use 1 test strip twice a day blood-glucose meter (FreeStyle Lite Meter kit) As directed cholecalciferol (vitamin D3) 50 mcg PO DAILY 90 days fluticasone propion-salmeterol 115-21 mcg/actuation (Advair HFA) 2 puffs inhalation Q12H 30 days hydroxyzine pamoate 25 mg PO BID insulin glargine (Lantus Solostar U-100 Insulin) 15 units (0.15 mL) subcut QPM 90 days latanoprost 0.005% 0 drps ophthalmic (eye) lisinopril 20 mg PO DAILY 90 days nicotine (polacrilex) 4 mg buccal Q8H PRN 30 days oxycodone 5 mg PO Q8H PRN 30 days pen needle, diabetic (AboutTime Pen Needle) Use 1 pen needle once a day quetiapine 400 mg PO BEDTIME quetiapine 200 mg PO BEDTIME Tobacco use date assessed: 09/07/24 Fall risk assessment: No Falls in past year Last assessed Fall Risk: 09/07/24 Dental Screening Dental Screen Date: 12/02/23 HPI HPI Comments History of Present Illness Details This is a 69-year-old female with diabetes mellitus type 2, hypertension, hyperlipidemia, COPD, mild major depression and opioid dependence that comes today for follow-up on her conditions. A1c within goal being 5.5%. Blood pressure stable. Last LDL was not on goal and she admits not having atorvastatin for few months. Lipid panel will be repeated for the next office visit and her LDL goal should be less than 70. Has COPD and has run out of Advair and is wheezing. Will be referred to pulmonology and restart Advair. Depression stable with meds and follow by Psychiatry. On oxycodone for her opiate dependence due to chronic low back pain doing well. She was advised to quit smoking. Had CT lung cancer screening 2023 and was negative. PENDING SALE TO [facility] Medical History Nicotine dependence, cigarettes, uncomplicated Type 2 diabetes mellitus COPD (chronic obstructive pulmonary disease) Chondrocalcinosis of right knee Osteoarthritis of right knee Hypovitaminosis D Opioid dependence Essential hypertension Lumbar degenerative disc disease Surgical History History of cataract surgery History of colonoscopy History of cholecystectomy (~1998) History of total abdominal hysterectomy and bilateral salpingo-oophorectomy (~1993) History of section History of lumbar discectomy (~2009) Family History Father CHF (congestive heart failure) CVD (cardiovascular disease) Mother Medical history unknown Family/Other FH: mental illness Son No problems noted. Social History Housing: Apartment Alcohol intake: never Patient Tobacco Use Status: Current everyday Tobacco user Tobacco use type: Cigarette Cigarettes Per Day: 5 Years Smoked: (onset 11yo, 1/2-3/4ppd x 56yrs, 35pyh) e-Cigarette/Vaping Use: Never Used Second Hand Smoke Exposure: No service: No Current occupational status: unemployed Cognitive needs: Yes Hearing needs: No Vision needs: Yes Questionnaire Thrive Questionnaire Date Thrive assessed: 12/02/23 DESMOND-7 AMB Questionnaire DESMOND-7 Date DESMOND - 7 assessed: 12/02/23 Source: Developed by Drs. Chato Alvarado, Jania Carpio, Nico Tang and colleagues, with an educational autumn from [employer]. Review of Systems Const All systems reviewed & are unremarkable except as noted in HPI and below Card Denies chest pain at rest, Denies chest pain with activity, Denies edema, Denies irregular heart rhythm, Denies claudication, Denies dyspnea, Denies dyspnea on exertion, Denies orthopnea, Denies paroxysmal nocturnal dyspnea and Denies slow heart rate Resp Denies cough, Denies dyspnea and Denies dyspnea on exertion Physical exam (Primary Care) Vital Signs: Last Vital Signs Pulse 69 09/07/24 13:34 BP 140/78 H 09/07/24 13:34 Pulse Ox 91 L 09/07/24 13:34 Oxygen Delivery Method Room Air 09/07/24 13:34 BMI result Body Mass Index 30.7 BMI Assessment/Plan discussion: High BMI High, discussed plan: lifestyle, weight reduction, dietary and physical activity Tobacco/Smoking Status: Tobacco use Status Tobacco use date assessed 09/07/24 09/07/24 13:47 Patient Tobacco Use Status Current everyday Tobacco 09/07/24 13:47 Tobacco use type Cigarette 09/07/24 13:47 e-Cigarette/Vaping Use Never Used 09/07/24 13:47 Are you ready to quit: Yes Tobacco cessation counseling provided: Yes Items discussed: Nicotine replacement and QuitWorks Relapse Prevention: discussed the importance of a supportive environment, discussed extending NRT, discussed negative mood or depression after quitting, weight gain after smoking is common and discussed dietary, exercise and/or lifestyle changes Number of minutes spent counselin CPT code: 47519 - 4-10 Minutes Thrive Assessment: Date of Thrive Assessment Date Thrive assessed 12/02/23 09/07/24 13:47 Resp Effort & Inspection: normal respiratory effort Auscultation: clear to auscultation bilaterally Cardio Jugular venous distension: no JVD Rate: regular rate Rhythm: regular rhythm Heart sounds: S1 normal heart sound present and S2 normal heart sound present Extrem General: Yes full ROM Office Procedures Flu Questionnaire Does the patient have a severe egg allergy?: No Does the patient have severe life threatening allergies?: No Does the patient have a fever or illness today?: No Has the patient ever had Guillain-Wilton Syndrome?: No Has the patient ever had any past reaction to a flu shot?: No Results AMB Hemoglobin A1c AMB Hemoglobin A1c 5.5 % Last Edit by BRIANNA Quintero on 09/07/24 13:47 Immunizations Fluarix Triv [id number] (PF) 45 mcg (15 mcg x 3)/0.5 mL IM syringe Performing Provider: Tamra Perez MD Performing Location: [facility] [place] [facility] Administered by: BRIANNA Quintero on 09/07/24 13:58 Dose Route Admin Location Dispensed Lot Number Expiration Date NDC Welfare Eligibility Interviewer 0.5 mL IM Left Deltoid 0.5 mL [id number] 04/23/25 [id number] e-Tag VIS Given Date VIS Provided VIS Publication Date 09/07/24 Single Vaccine 21 Eligibility Eligibility Date Funding Source Not [facility] Eligible 09/07/24 Private Results Reviewed Results Reviewed: Laboratory Last Values Hgb A1c (Clinic) 5.5 % (4.0-6.0) 09/07/24 13:33 Coding Level of Care Code Est Pt Level 4 (05462) Complex EM visit Add On G2211 Diagnoses Mild major depression F32.0 Uncomplicated opioid dependence F11.20 Substance use status: uncomplicated Type 2 diabetes mellitus without complication, with long-term current use of insulin E11.9; Z79.4 Diabetes mellitus complication status: without complication Diabetes mellitus supervisor intermediates insulin use: with correction use Essential hypertension I10 Hyperlipidemia LDL goal <70 E78.5 COPD (chronic obstructive pulmonary disease) J44.9 Additional Codes Vital Signs *Quality* - CPT code: 26151 - 4-10 Minutes ([id number]) Time Spent (min) 25 Assessment & Plan Assessment & Plan (1) Mild major depression: Code(s): F32.0 - Major depressive disorder, single episode, mild Category: Medical Plan: Continue Seroquel. Follow-up with psychiatry. (2) Opioid dependence: Code(s): F11.20 - Opioid dependence, uncomplicated Category: Medical Qualifiers: Substance use status: uncomplicated Qualified Code(s): F11.20 - Opioid dependence, uncomplicated Plan: Continue oxycodone as prescribed. (3) Type 2 diabetes mellitus: Code(s): E11.9 - Type 2 diabetes mellitus without complications Category: Medical Qualifiers: Diabetes mellitus complication status: without complication Diabetes mellitus supervisor intermediates insulin use: with supervisor intermediates use Qualified Code(s): E11.9 - Type 2 diabetes mellitus without complications; Z79.4 - extermination inspector (current) use of insulin Plan: Continue insulin. A1c goal is equal or less than 7%. (4) Essential hypertension: Code(s): I10 - Essential (primary) hypertension Category: Medical Plan: Continue lisinopril. Blood pressure goal is equal or less than 130/80. (5) Hyperlipidemia LDL goal <70: Code(s): E78.5 - Hyperlipidemia, unspecified Category: Medical Plan: Restart statins. LDL goal is less than 70. (6) COPD (chronic obstructive pulmonary disease): Code(s): J44.9 - Chronic obstructive pulmonary disease, unspecified Category: Medical Plan: Restart Advair. Use rescue inhaler as needed. Referred to pulmonology. Orders: Orders Lipid Panel 4 Months E78.5 - Hyperlipidemia, unspecified Microalbumin, Random (w Creat) 4 Months R80.9 - Proteinuria, unspecified AMB Hemoglobin A1c 09/07/24 E11.9 - Type 2 diabetes mellitus without complications, Z79.4 - intermediate (current) use of insulin Influenza [id number] Immunization 09/07/24 Z23 - Encounter for immunization Vitamin D 25-OH Total 4 Months E55.9 - Vitamin D deficiency, unspecified Comprehensive Met. Panel 4 Months E11.9 - Type 2 diabetes mellitus without complications, Z79.4 - extermination inspector (current) use of insulin Referrals Pulmonology Referral J44.9 - Chronic obstructive pulmonary disease, unspecified Medications: Refilled fluticasone propion-salmeterol 115-21 mcg/actuation (Advair HFA) 2 puffs inhalation Q12H 12 grams 11RF 30 days amlodipine 10 mg PO DAILY 90 tabs 1RF 90 days E11.9 - Type 2 diabetes mellitus without complications, Z79.4 - extermination inspector (current) use of insulin lisinopril 20 mg PO DAILY 90 tabs 0RF 90 days E11.9 - Type 2 diabetes mellitus without complications, Z79.4 - intermediate (current) use of insulin atorvastatin 10 mg PO BEDTIME 90 tabs 1RF 90 days E78.5 - Hyperlipidemia, unspecified cholecalciferol (vitamin D3) 50 mcg PO DAILY 90 caps 3RF 90 days E11.9 - Type 2 diabetes mellitus without complications, Z79.4 - extermination inspector (current) use of insulin
== END 2024-09-07 14:01 | disposition home or self-care (01) ==
PROVIDERS: PCP Internal Medicine; Visit Provider Internal Medicine
DX: E11.69 Type 2 diabetes mellitus with other specified complication (principal); F32.0 Major depressive disorder, single episode, mild; F11.20 Opioid dependence, uncomplicated; Z79.4 Long term (current) use of insulin; J44.9 Chronic obstructive pulmonary disease, unspecified; F17.210 Nicotine dependence, cigarettes, uncomplicated; I10 Essential (primary) hypertension; E78.5 Hyperlipidemia, unspecified

== ENCOUNTER → 2024-09-07 13:29 | Outpatient (BNVA) | payer OTHER, SELFPAY | PROVIDERS: PCP Internal Medicine; Visit Provider Internal Medicine | DX: Z23 Encounter for immunization (principal); F32.0 Major depressive disorder, single episode, mild; F11.20 Opioid dependence, uncomplicated; E11.9 Type 2 diabetes mellitus without complications; I10 Essential (primary) hypertension; E78.5 Hyperlipidemia, unspecified; J44.9 Chronic obstructive pulmonary disease, unspecified; Z79.4 Long term (current) use of insulin | CPT/HCPCS: 83036; 90471; 90656; 99212 ==

== ENCOUNTER 2024-12-29 10:18 | Outpatient (REF) | payer OTHER, SELFPAY ==
--- OUTSIDE RECORDS SUMMARY | 2024-12-29 11:33 | XMS_ITS | Clinical Summary ---
Author Organization [facility] Facility Address [address] [place] [address], [place] [address] Care Team Providers Care Autoglazier Name Role Phone Tamra Keenan MD Primary Care Provider [phone] Social History Tobacco Use Types Packs/Day Years Used Date Smoking Tobacco: Every Day Comments Unknown Sex and Gender Information Value Date Recorded Sex Assigned at Not on file Legal Sex Female 4:32 PM EST Gender Identity Not on file Sexual Orientation Not on file Last Filed Vital Signs Vital Sign Reading Time Taken Comments Blood Pressure 140/62 03/14/2019 12:01 PM EDT Pulse 80 01/30/2019 12:00 PM EDT Temperature - - Respiratory Rate - - Oxygen Saturation - - Inhaled Oxygen Concentration - - Weight 71.2 kg (157 lb) 03/01/2019 12:00 PM EDT Height 152.4 cm (5') 03/14/2019 12:00 PM EDT Body Mass Index 30.66 03/01/2019 12:00 PM EDT Plan of Treatment Health Maintenance Due Date Last Done Comments Breast Cancer Screening 1955 Pneumococcal Vaccine: 65+ Ye ars (1 of 2 - PCV) 02/19/1960 Colorectal Cancer Screening: Annual FOBT 2003 Colorectal Cancer Screening: Colonoscopy 2003 Colorectal Cancer Screening: Sigmoidoscopy 2003 Diabetes: Hemoglobin A1C 01/15/2020 Diabetes: Ophthalmology Exam 01/15/2020 Diabetes: Pedal Pulse Checked 01/15/2020 Diabetes: Sensory Foot Exam 01/15/2020 Diabetes: Visual Foot Exam 01/15/2020 Influenza Vaccine (#1) 2024 Hepatitis B Vaccine Aged Out No longe r eligible based on patient's age to complete this topic Insurance [facility] [place] [id number] Care Teams Autoglazier Relationship Specialty Start Date End Date Tamra Keenan MD [address] [place], [place] PCP - General 08/29/19
--- OUTSIDE RECORDS SUMMARY | 2024-12-29 11:33 | XMS_ITS | Clinical Summary ---
Author Organization [facility] Address [address] [place] [address] Care Team Providers Care Cna Hha Name Role Phone MarcieradhajosedelilahRaymon NP Primary Care Provider [phone] Source Comments PLEASE NOTE, if this patient is a minor, it may be UNLAWFUL to discuss sensitive information that is contained in these records (such as FAMILY PLANNING, MENTAL HEALTH or SUBSTANCE ABUSE) with the minor patient's parent or other person without the patient's specific authorization.[facility] Medications lancets (BD ULTRA FINE LANCETS)Indicat ions:Diabetes mellitus 2 (two) times daily before a meal. 60 Each 2 3 Active alcohol swabsIndication s:Diabetes mellitus Apply topically 2 (two) times daily. 100 Each 1 3 Active FREESTYLE TEST strips USE TONEY LO INDICADO DOS VECES AL TITO BEFORE A MEAL 50 Strip 2 4 Active metFORMIN (GLUCOPHAGE) 1,000 mg tablet TOME OLIVIA TABLETA DOS VECES AL TITO 60 Tab 1 4 Active cyclobenzaprine (FLEXERIL) 5 mg tabletIndicatio ns:Acute midline low back pain with right-sided sciatica Take 1 Tab by mouth 2 (two) times daily as needed for muscle spasms 60 Tab 7 Active naproxen (NAPROSYN) 500 mg tabletIndicatio ns:Acute midline low back pain with right-sided sciatica Take 1 Tab by mouth 2 (two) times daily with a meal 60 Tab 7 Active Active Problems Problem Noted Date Diagnosed Date High risk for fracture due to osteoporosis by [place] XA scan 03/18/2017 Overview (03/18/2017): [place] in 2016- spine- osteopenia, left femoral neck- osteoporosis, Left hip- osteopenia Chronic midline low back pain without sciatica 0 03/17/2017 Fall at home 07/14/2013 Diabetes mellitus 05/18/2013 Social History Tobacco Use Types Packs/Day Years Used Date Smoking Tobacco: Never Assessed Social Connections Answer Date Recorded Social Connections and Isolation 0 06/17/2019 Financial Resource Strain Answer Date R ecorded Financial Resource Strain 0 2018 Stress Answer Date Recorded Stress 0 06/17/2019 Physical Activity Answer Date Recorded Physical Activity 0 06/17/2019 Food Insecurity Answer Date Recorded Food 0 06/17/2019 Transportation Needs Answer Date Record ed Transportation 0 06/17/2019 Housing Stability Answer Date Recorded Housing 0 06/17/2019 Safety and Environment Answer Date Salas rded Safety 0 06/17/2019 Utilities Answer Date Recorded Utilities 0 06/17/2019 Employment Answer Date Recorded Employment 0 06/17/2019 Comments Unknown Sex and Gender Information Value Date Recorded Sex Assigned at Not on file Legal Sex Female 11:36 AM PDT Gender Identity Not on file Sexual Orientation Not on file Last Filed Vital Signs Vital Sign Reading Time Taken Comments Blood Pressure 121/60 05/08/2017 1:26 PM EDT Pulse 95 05/08/2017 1:26 PM EDT Temperature 37.1 ??C (98.7 ??F) 05/08/2017 1:26 PM ED T Respiratory Rate 16 05/08/2017 1:26 PM EDT Oxygen Saturation 97% 05/08/2017 1:26 PM EDT Inhaled Oxygen Concentration - - Weight 69.4 kg (153 lb) 05/08/2017 1:26 PM EDT Height - - Body Mass Index - - Plan of Treatment Not on file Insurance [place] MEDICAID Care Teams Cna Hha Relationship Specialty Start Date End Date Raymon Reece NP [address] [place] [phone] PCP - General 09/01/18
--- OUTSIDE RECORDS SUMMARY | 2024-12-29 11:33 | XMS_ITS | Encounter Summary ---
Author Organization [facility] Address [address] [place] [address] Care Team Providers Care Mammalogist Name Role Phone Tamra Perez MD Primary Care Provider [phone] Reason for Visit * Reason Comments Suicidal Encounter Details Date Type Department Care Team (Late st Contact Info) Description 12/16/2024 7:56 AM EST - 12/16/2024 2:16 PM EST Emergency [facility] Emergency [address] [place] [id number] Anxiety (Primary Dx); Mild cocaine use disorder (CMS/HCC) Discharge Disposition: Home or Self Care Social History Tobacco Use Types Packs/Day Years Used Date Smoking Tobacco: Every Day Cigarettes 0.5 55.8 Started: 03/26/1969 Smokeless Tobacco: Never Alcohol Use Standard Drinks/Week Comments No 0 (1 standard drink = 0.6 oz pur e alcohol) Comments Unknown Sex and Gender Information Value Date Recorded Sex Assigned at Not on file Legal Sex Female 7:32 PM EST Gender Identity Not on file Sexual Orientation Not on file documented as of this encounter Last Filed Vital Signs Vital Sign Reading Time Taken Comments Blood Pressure 162/81 12/16/2024 1:20 PM EST Pulse 67 12/16/2024 1:20 PM EST Temperature 36.9 ??C (98.4 ??F) 12/16/2024 1:20 PM ES T Respiratory Rate 18 12/16/2024 7:40 AM EST Oxygen Saturation 97% 12/16/2024 1:20 PM EST Inhaled Oxygen Concentration - - Weight 77.1 kg (170 lb) 12/16/2024 7:40 AM EST Height 152.4 cm (5') 12/16/2024 7:40 AM EST Body Mass Index 33.2 12/16/2024 7:40 AM EST documented in this encounter Discharge Instructions * Discharge Instructions* SHAYNA Dawson - 12/16/2024 1:37 PM EST PCP and outpatient therapy. * Attachments The following attachments cannot be sent through Care Everywhere. * Anxiety: Treatment Options: Video (Thai) documented in this encounter Medications at Time of Discharge LORazepam (ATIVAN) 0.5 mg tablet Take 1 tablet (0.5 mg total) by mouth every 12 (twelve) hours for 3 days. Max Daily Amount: 1 mg 6 tablet 12/16/2024 documented as of this encounter Ordered Prescriptions Prescription Sig Dispense Quantity Refills Last Filled Start Date End Date LORazepam (ATIVAN) 0.5 mg tablet Take 1 tablet (0.5 mg total) by mouth every 12 (twelve) hours for 3 days. Max Daily Amount: 1 mg 6 tablet 12/16/2024 documented in this encounter Discharge Disposition Disposition Code Departure Means Destination Comment s Home or Self Care documented in this encounter Progress Notes * Elsa Avila RN - 12/16/2024 7:41 AM EST Pt to [facility] with depression and anxiety since Wednesday. Unable to eat or sleep. +SI at home. Denies HI. Calm/cooperative. States she has been having problems with son in law, stating he told her she is not allowed to contact him or her own daughter. * SHAYNA Dawson - 12/16/2024 7:35 AM EST Emergency Medicine Note Patient Name: Hilda Garcia Initial Evaluation: 12/16/2024 : 1955 Patient's PCP: Tamra Perez MD Emergency Physician: SHAYNA Dawson History of Present Illness Chief Complaint: Chief Complaint Patient presents with Suicidal HPI: 19-year-old female history of asthma, type 2 diabetes insulin-dependent, presents with anxietyover the past few days. She says she had a situation that seemed to cause this but says it has resolved and she no longer wishes to talk about it. Triage notes it seems that it was something to do with her son-in-law. Says initially when she was feeling very sad and down she had thoughts of wanting to hurt herself does not feel that way right now. -She does not take any medication for anxiety or depression. -She says she has been taking her other medications as directed. She has had a couple episodes of loose stool over the past week but denies any persistent diarrhea, vomiting, abdominal pain, chest pain, shortness of breath, trauma, dysuria ROS: I have performed a ROS with the pertinent positives and negatives documented in the history ofpresent illness. 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) 03/23/2019 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); COMMENT: Sees nephrology Vitamin D deficiency 03/23/2019 DX:Vitamin D deficiency Past Surgical History: Procedure Laterality Date BACK SURGERY 2009 PROCEDURE: HISTORICAL BACK SURGERY; COMMENT: lumbar disc SECTION PROCEDURE: HISTORICAL ; COMMENT: x2 CHOLECYSTECTOMY 1998 PROCEDURE: HISTORICAL CHOLECYSTECTOMY; COMMENT: open HYSTERECTOMY 1993 PROCEDURE: HISTORICAL TOTAL HYSTERECTOMY WITH BSO Social History Tobacco Use Smoking status: Every Day Current packs/day: 0.50 Average packs/day: 0.5 packs/day for 55.7 years (27.9 ttl pk-yrs) Types: Cigarettes Start date: 03/26/1969 Smokeless tobacco: Never Substance Use Topics Alcohol use: No Drug use: No Family History Problem Relation Name Age of Onset No Known Problems Mother 68 Heart failure Father 71.00 CAD Diabetes Sister HTN is allergic to aspirin, fentanyl, and tramadol. No current facility-administered medications on file prior to encounter. No current outpatient medications on file prior to encounter. Physical Exam ED Triage Vitals [12/16/24 0740] Temp Heart Rate Resp BP 36.3 ??C (97.3 ??F) 67 18 (!) 142/71 SpO2 Temp Source Heart Rate Source Patient Position 97 % Oral Monitor Sitting BP Location FiO2 (%) Right arm -- General: awake, calm, cooperative, No apparent distress Skin: warm, dry, No diaphoresis Eyes: PERRLA, EOMI ENT: mucosa moist, throat is clear Neck: soft/supple, full range of motion, no nuchal rigidity Respiratory: clear to auscultation Cardiovascular: regular rate and rhythm, no peripheral edema Gastrointestinal: soft nontender, normal active bowel sounds, no hepatomegaly Musculoskeletal: no calf tenderness, no pedal edema, appropriate range of motion in upper and lowerextremities Neurological: alert and oriented X3, no focal deficit, DTR intact, cranial nerves III through XII intact, strength 5/5 bilateral hands, 5/5 strength upper and lower extremities Psychiatric: stable mood and affect Results Labs Reviewed COMPREHENSIVE METABOLIC PANEL - Abnormal Result Value Sodium 137 Potassium 4.5 Chloride 107 CO2 21 Anion Gap 9 Glucose 200 (*) BUN 19 Creatinine 1.37 (*) eGFR 42 (*) BUN/Creatinine Ratio 13.9 Calcium 8.9 AST (SGOT) 16 ALT (SGPT) 17 Alkaline Phosphatase 114 Total Protein 7.9 Albumin 3.8 Total Bilirubin 0.6 ACETAMINOPHEN LEVEL - Abnormal Acetaminophen Level <2.0 (*) DRUG ABUSE SCREEN 8A PANEL, URINE - Abnormal Amphetamine Screen, Ur Negative Barbiturate Screen, Ur Negative Benzodiazepine Screen, Ur Negative Cocaine Screen, Ur Positive (*) Opiate Screen, Ur Negative Cannabinoid (THC) Screen, Ur Negative Oxycodone Screen, Ur Negative Fentanyl, Ur Negative Narrative: Assay cutoffs: Amphetamines 1000 ng/mL Barbiturates 200 ng/mL Benzodiazepines 200 ng/mL Cocaine 300 ng/mL Fentanyl 1 ng/mL Opiates 300 ng/mL Oxycodone 100 ng/mL THC 50 ng/mL Semi-quantitative assay for screening purposes only. Unconfirmed screening result should not be used for non-medical purposes. *ALTERNATE METHOD CONFIRMATION DONE UPON REQUEST ONLY* CBC WITH AUTO DIFFERENTIAL - Abnormal WBC 9.7 RBC 3.90 Hemoglobin 12.6 Hematocrit 37.9 MCV 96.9 MCH 32.2 (*) MCHC 33.2 RDW 12.5 Platelets 221 MPV 9.1 NRBC 0.0 NRBC Absolute 0.00 Neutrophils Relative 59.3 Lymphocytes Relative 31.7 Monocytes Relative 7.2 Eosinophils Relative 0.9 Basophils Relative 0.6 Immature Granulocytes Relative 0.3 Neutrophils Absolute 5.72 Lymphocytes Absolute 3.06 Monocytes Absolute 0.70 Eosinophils Absolute 0.09 Basophils Absolute 0.06 Immature Granulocytes Absolute 0.03 ETHANOL - Normal Ethanol Level <3 SALICYLATE LEVEL - Normal Salicylate Level 3.9 BUPRENORPHINE SCREEN, URINE - Normal Buprenorphine Screen Urine Negative Narrative: Assay cutoff 5 ng/mL Semi-quantitative assay for screening purposes only. Unconfirmed screening result should not be used for non-medical purposes. *ALTERNATE METHOD CONFIRMATION DONE UPON REQUEST ONLY* PHENCYCLIDINE, URINE - Normal PCP Scrn, Ur Negative METHADONE SCREEN, URINE - Normal Methadone Screen, Urine Negative THYROID STIMULATING HORMONE - Normal TSH 0.93 THYROXINE FREE - Normal Free T4 1.28 CBC AND DIFFERENTIAL Narrative: The following orders were created for panel order CBC and differential. Procedure Abnormality Status --------- ------ CBC auto differential[[id number]] Abnormal Final result Please view results for these tests on the individual orders. Abnormal Labs Reviewed COMPREHENSIVE METABOLIC PANEL - Abnormal; Notable for the following components: Result Value Glucose 200 (*) Creatinine 1.37 (*) eGFR 42 (*) All other components within normal limits ACETAMINOPHEN LEVEL - Abnormal; Notable for the following components: Acetaminophen Level <2.0 (*) All other components within normal limits DRUG ABUSE SCREEN 8A PANEL, URINE - Abnormal; Notable for the following components: Cocaine Screen, Ur Positive (*) All other components within normal limits Narrative: Assay cutoffs: Amphetamines 1000 ng/mL Barbiturates 200 ng/mL Benzodiazepines 200 ng/mL Cocaine 300 ng/mL Fentanyl 1 ng/mL Opiates 300 ng/mL Oxycodone 100 ng/mL THC 50 ng/mL Semi-quantitative assay for screening purposes only. Unconfirmed screening result should not be used for non-medical purposes. *ALTERNATE METHOD CONFIRMATION DONE UPON REQUEST ONLY* CBC WITH AUTO DIFFERENTIAL - Abnormal; Notable for the following components: MCH 32.2 (*) All other components within normal limits No orders to display I have discussed the incidental/abnormal imaging and/or lab abnormalities with the patient and haveinstructed them the need for further evaluation and workup with their primary care doctor. The laboratory results, imaging results and other diagnostic exam results were reviewed in the EMR. EKG Interpretation Critical Care Time None ? Medical Decision Making MDM as described in ED course below Medications LORazepam (ATIVAN) tablet 0.5 mg (0.5 mg oral Given 12/16/24 0910) ED Course as of 12/17/24 0709 Sat Dec 16, 2024 0854 Evaluated. History and physical exam performed. Vitals reviewed. Patient is well-appearing, nontoxic, no acute distress. Scottish-speaking, calm and cooperative but reports significant anxiety. Does not wish to talk about the events that she thinks led up to the anxiety but says that the issue is resolved. Will proceed with medical clearance and N evaluation due to reports of previous SI. [AT] 1002 Reviewed. Patient is medically cleared. Of note positive for cocaine [AT] 1334 Patient seen and cleared by N. Will give short course of Ativan to be discharged with otherwise outpatient follow-up and return precautions [AT] ED Course User Index [AT] SHAYNA Dawson Clinical Impressions as of 12/17/24 0709 Anxiety Mild cocaine use disorder (CMS/HCC) Procedures Procedures Differential Diagnosis Anxiety Situational stress Bipolar disorder Depression Suicidal ideations Anemia Other electrolyte disturbance Diagnosis 1. Anxiety 2. Mild cocaine use disorder (CMS/HCC) Disposition Discharge Condition: Stable ED Prescriptions Medication Sig Dispense Start Date End Date Auth. Provider LORazepam (ATIVAN) 0.5 mg tablet Take 1 tablet (0.5 mg total) by mouth every 12 (twelve) hours for 3 days. Max Daily Amount: 1 mg 6 tablet 12/16/2024 12/19/2024 SHAYNA Dawson Physician Attestation SHAYNA Dawson 12/16/24 0857 SHAYNA Dawson 12/17/24 0709 Cosigned by Ernesto Benavides MD at 12/17/2024 7:41 AM EST documented in this encounter Consult Notes * Racheal Camejo, PREPRESS OPERATOR - 12/16/2024 11:25 AM ESTAssociated Order(s): IP CONSULT TO CLOCK ASSEMBLER Images from the original note were not included. Behavioral Health Services - Crisis Assessment Important times Time of arrival: 12/16/24 0735 Time of referral: 12/16/24 1046 Time of readiness: 12/16/24 1046 Time assessment started: 12/16/24 1050 Time of disposition: 12/16/24 1150 Location: [facility] ER Consulted case with: ANKITA Almazan Reason for Consultation / Presenting Problem: Hilda Garcia is being seen today for a consultive service at the request of No att. providers found to assess risk and identify appropriate level of care. Patient is being assessed by Behavioral Health using an needle control cheniller due to suicidal ideation. Patient reported vague SI statement at triage stemming from a recent family stressor. The patient reports that she was told on Wednesday by her son-in-law that she can no longer contact him or her daughter. The patient reports she does not know why her told her that. Patient denies suicide ideation or a plan. Patient report that she had loss of appetite and not being able to sleep since her son-in-law told her she can have no contact with them. Patient reports that her anxiety is her primary concern. She reports that she have been using cocaine for the past 3 days to help with her anxiety. Patient was given ativan for her anxiety and she reports that she is feeling a bit better. Patient reports that she has an appointment next month with her psychiatrist. Patient denies HI/AH/VH. History of Present Illness: Hilda is a 69 y.o. 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 Employment/Extracurricular Activities/Hobbies: none reported Limitations of Daily Activities: none reported Strengths/Supports: Patient can advocate for her needs is help seeking Collaterals, contact information, and engagement level: Therapist: n/a Psychiatrist: Patient reports a provider through [facility] PCP: n/a Family: n/a Other: n/a Mental Status Speech: WNL Eye Contact: WNL Motor Activity: WNL Mood: WNL Affect: Appropriate Sleep: Poor Appetite: Fair Memory: WNL Attention / Concentration: WNL Behavior: Cooperative and Calm Appearance: Hallucinations: None Delusions: None Thought Content: WNL SI: Denied HI: Denied Thought Process: WNL Orientation Impairment: None Insight: Fair Judgment: Fair Impulse Control: Fair Substance Use History (Including family history): None reported Utox Results: Patient was positive for cocaine Substance Use Treatment History: None reported Mental Health Treatment History: Outpatient Mental Health Treatment: Patient reports that she sees a provider through [facility] Previous or Current Psychological Diagnosis: none reported Prior Psychiatric Hospitalizations/Residential Treatment Facilities: n/a Other Comments Regarding Mental Health Treatment History: n/a Mental Health Concerns in Family: n/a Trauma History: None reported Medications: Scheduled Meds: Continuous Infusions: PRN Meds: None report Risk Assessment: Self-Harm: None Suicidal Behavior: None Homicidal Behavior: None Physical Assault: None Physical Aggression: None Property Damage: None Verbal Aggression: None Family history of suicide: None reported Protective Factors: Patient is help seeking and can advocate for herself Risk Factors: - Patient is positive for cocaine - Patient can no longer communicate with her daughter - Increased anxiety Suicide Risk: Based on patient's history and current presentation, their level of risk for intentional lethal harm is considered Low Interventions: Safety assessment, Motivational interviewing, active listening, empathetic listening, brief counseling, psychoeducation, support, safety planning Response to interventions: Patient responds well to the intervention; he was calm, cooperative, and welcomed additional help. 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 Patient would benefit from continuing to work with current outpatient providers. Patient was referred to [facility] for social support and given resources for N WellBeing. Recommendations were discussed with requesting provider. It was a pleasure to assist Hilda Garcia here at [facility]. This report is written and finalized by: Racheal Camejo LCSW Behavioral Health Specialist [facility] (Tel): [phone] / : [phone] documented in this encounter Plan of Treatment Not on file documented as of this encounter Procedures Procedure Name Priority Date/Time Associated Diagnosis Comments ECG ANNOTATED 12/18/2024 ECG 12-LEAD STAT 12/16/2024 8:17 AM EST DRUG ABUSE SCREEN 8A PANEL, URINE STAT 12/16/2024 8:08 AM EST BUPRENORPHINE SCREEN, URINE STAT 12/16/2024 8:08 AM EST METHADONE SCREEN, URINE STAT 12/16/2024 8:08 AM EST CBC WITH AUTO DIFFERENTIAL STAT 12/16/2024 8:08 AM EST PHENCYCLIDINE, URINE STAT 12/16/2024 8:08 AM EST CBC AND DIFFERENTIAL STAT 12/16/2024 8:08 AM EST THYROID STIMULATING HORMONE STAT Add-on 12/16/2024 8:08 AM EST THYROXINE FREE STAT Add-on 12/16/2024 8:08 AM EST ETHANOL STAT 12/16/2024 8:08 AM EST ACETAMINOPHEN LEVEL STAT 12/16/2024 8 :08 AM EST SALICYLATE LEVEL STAT 12/16/2024 8:08 AM EST COMPREHENSIVE METABOLIC PANEL STAT 12/16/2024 8:08 AM EST documented in this encounter Results * ECG-Annotated (12/18/2024) Provider Onbase ECG ORDERABLES Final Result * ECG 12 lead (12/16/2024 8:17 AM EST) Ventricular Rate ECG 63 BPM GEMUSE Atrial Rate 63 BPM GEMUSE P-R Interval 136 ms GEMUSE QRS Duration 84 ms GEMUSE Q-T Interval 434 ms GEMUSE QTc 444 ms GEMUSE P Wave [place] 63 degrees GEMUSE R [place] -10 degrees GEMUSE T [place] 54 degrees GEMUSE ECG Interpretation Normal sinus rhythm Possible Left atrial enlargement Borderline ECG When compared with ECG of 08-NOV-2018 18:47, No significant change was found Confirmed by LAWRENCE DE JESUS ([id number]) on 12/16/2024 3:34:16 PM GEMUSE 12/16/2024 8:17 AM EST 12/16/2024 3:34 PM EST Gab Santos MD ECG ORDERABLES Final Resul t GEMUSE * T4, free (12/16/2024 8:08 AM EST) Free T4 1.28 0.70 - 1.80 ng/dL LAB CHEMISTRY METHOD 12/16/2024 9:32 AM EST [facility] Blood Venous blood specimen / Unknown Venipuncture / Unknown 12/16/2024 8:08 AM EST 12/16/2024 8:30 AM EST Honey CORRAL LAB BLOOD ORDERABLES Fin al Result Performing Organization Address City/[facility]/ZIP Co de Phone Number [facility] [address] [place] [address], [place] [phone] * Thyroid stimulating hormone (TSH) (12/16/2024 8:08 AM EST) TSH 0.93 0.40 - 4.00 mcIU/mL LAB CHEMISTRY METHOD 12/16/2024 9:32 AM [facility] Blood Venous blood specimen / Unknown Venipuncture / Unknown 12/16/2024 8:08 AM EST 12/16/2024 8:30 AM EST Honey CORRAL LAB BLOOD ORDERABLES Fin al Result [facility] [address] [place] [address], * (ABNORMAL) CBC auto differential (12/16/2024 8:08 AM EST) [facility] WBC 9.7 4.8 - 10.8 K/mcL LAB HEMETOLOGY METHOD 12/16/2024 8:39 AM [facility] RBC 3.90 3.80 - 4.80 M/[facility] LAB HEMETOLOGY METHOD 12/16/2024 8:39 AM [facility] Hemoglobin 12.6 11.5 - 16.0 g/dL LAB HEMETOLOGY METHOD 12/16/2024 8:39 AM [facility] Hematocrit 37.9 35.0 - 47.0 % LAB HEMETOLOGY METHOD 12/16/2024 8:39 AM [facility] MCV 96.9 79.0 - 98.0 FL LAB HEMETOLOGY METHOD 12/16/2024 8:39 AM [facility] MCH 32.2(H) 27.0 - 32.0 pcg LAB HEMETOLOGY METHOD 12/16/2024 8:39 AM [facility] MCHC 33.2 32.0 - 37.0 g/dL LAB HEMETOLOGY METHOD 12/16/2024 8:39 AM [facility] RDW 12.5 11.0 - 15.0 % LAB HEMETOLOGY METHOD 12/16/2024 8:39 AM [facility] Platelets 221 130 - 400 K/mcL LAB HEMETOLOGY METHOD 12/16/2024 8:39 AM [facility] MPV 9.1 7.0 - 11.0 FL LAB HEMETOLOGY METHOD 12/16/2024 8:39 AM [facility] NRBC 0.0 <1.0 % LAB HEMETOLOGY METHOD 12/16/2024 8:39 AM [facility] NRBC Absolute 0.00 <0.10 K/mcL LAB HEMETOLOGY METHOD 12/16/2024 8:39 AM [facility] Neutrophils Relative 59.3 % LAB HEMETOLOGY METHOD 12/16/2024 8:39 AM [facility] Lymphocytes Relative 31.7 % LAB HEMETOLOGY METHOD 12/16/2024 8:39 AM [facility] Monocytes Relative 7.2 % LAB HEMETOLOGY METHOD 12/16/2024 8:39 AM [facility] Eosinophils Relative 0.9 % LAB HEMETOLOGY METHOD 12/16/2024 8:39 AM [facility] Basophils Relative 0.6 % LAB HEMETOLOGY METHOD 12/16/2024 8:39 AM [facility] Immature Granulocytes Relative 0.3 % LAB HEMETOLOGY METHOD 12/16/2024 8:39 AM [facility] Neutrophils Absolute 5.72 1.50 - 7.00 K/mcL LAB HEMETOLOGY METHOD 12/16/2024 8:39 AM [facility] Lymphocytes Absolute 3.06 1.00 - 5.00 K/mcL LAB HEMETOLOGY METHOD 12/16/2024 8:39 AM [facility] Monocytes Absolute 0.70 0.20 - 1.00 K/mcL LAB HEMETOLOGY METHOD 12/16/2024 8:39 AM EST [facility] Eosinophils Absolute 0.09 0.00 - 0.50 K/mcL LAB HEMETOLOGY METHOD 12/16/2024 8:39 AM EST [facility] Basophils Absolute 0.06 0.00 - 0.20 K/mcL LAB HEMETOLOGY METHOD 12/16/2024 8:39 AM EST [facility] Immature Granulocytes Absolute 0.03 0.00 - 0.03 K/mcL LAB HEMETOLOGY METHOD 12/16/2024 8:39 AM EST [facility] Blood Venous blood specimen / Unknown Venipuncture / Unknown 12/16/2024 8:08 AM EST 12/16/2024 8:30 AM EST Gab Santos MD LAB BLOOD ORDERABLES Final Result Performing Organization Address City/[facility]/ZIP Co de Phone Number [facility] [address] [place] [address], [place] [phone] * Methadone, urine (12/16/2024 8:08 AM EST) [facility] Methadone Screen, Urine Negative Negative LAB CHEMISTRY METHOD 12/16/2024 8:54 AM EST [facility] Comment: Assay cutoff 300 ng/mL Semi-quantitative assay for screening purposes only. Unconfirmed screening result should not be used for non-medical purposes. *ALTERNATE METHOD CONFIRMATION DONE UPON REQUEST ONLY* Urine Urine specimen obtained by clean catch procedure / Unknown Non-blood Collection / Unknown 12/16/2024 8:08 AM EST 12/16/2024 8:30 AM EST Gab Santos MD LAB URINE ORDERABLES Final Result Performing Organization Address City/[facility]/ZIP Co de Phone Number [facility] [address] [place] [address], [place] [phone] * Phencyclidine, urine (12/16/2024 8:08 AM EST) PCP Scrn, Ur Negative Negative LAB CHEMISTRY METHOD 12/16/2024 8:54 AM EST [facility] Comment: Assay cutoff 25 ng/mL Semi-quantitative assay for screening purposes only. Unconfirmed screening result should not be used for non-medical purposes. *ALTERNATE METHOD CONFIRMATION DONE UPON REQUEST ONLY* Urine Urine specimen obtained by clean catch procedure / Unknown Non-blood Collection / Unknown 12/16/2024 8:08 AM EST 12/16/2024 8:30 AM EST Gab Santos MD LAB URINE ORDERABLES Final Result Performing Organization Address [facility] Co de Phone Number [facility] [address] [place] [address], * Buprenorphine screen, urine (12/16/2024 8:08 AM EST) [facility] Buprenorphine Screen Urine Negative Negative LAB CHEMISTRY METHOD 12/16/2024 8:54 AM EST [facility] Urine Urine specimen obtained by clean catch procedure / Unknown Non-blood Collection / Unknown 12/16/2024 8:08 AM EST 12/16/2024 8:30 AM EST Narrative [facility] - 12/16/2024 8:54 AM EST Assay cutoff 5 ng/mL Semi-quantitative assay for screening purposes only. Unconfirmed screening result should not be used for non-medical purposes. *ALTERNATE METHOD CONFIRMATION DONE UPON REQUEST ONLY* Gab Santos MD LAB URINE ORDERABLES Final Result Performing Organization Address City/[facility]/ZIP Co de Phone Number [facility] [address] [place] [address], [place] [phone] * (ABNORMAL) Drug abuse screen 8a panel, urine (12/16/2024 8:08 AM EST) Amphetamine Screen, Ur Negative Negative LAB CHEMISTRY METHOD 5 8:54 AM [facility] Comment:Certain OTC medicati ons containing ephedrine, phenylephrine, pseudoephedrine and phenylpropanolamine can cause false positive results. Barbiturate Screen, Ur Negative Negative LAB CHEMISTRY METHOD 5 8:54 AM [facility] Benzodiazepine Screen, Ur Negative Negative LAB CHEMISTRY METHOD 5 8:54 AM [facility] Cocaine Screen, Ur Positive(A ) Negative LAB CHEMISTRY METHOD 5 8:54 AM [facility] Opiate Screen, Ur Negative Negative LAB CHEMISTRY METHOD 5 8:54 AM [facility] Cannabinoid (THC) Screen, Ur Negative Negative LAB CHEMISTRY METHOD 5 8:54 AM [facility] Comment:Specimens from patie nts taking pantoprazole sodium (Protonix) have been shown to produce false positive results. Oxycodone Screen, Ur Negative Negative LAB CHEMISTRY METHOD 5 8:54 AM [facility] Fentanyl, Ur Negative Negative LAB CHEMISTRY METHOD 5 8:54 AM [facility] Urine Urine specimen obtained by clean catch procedure / Unknown Non-blood Collection / Unknown 12/16/2024 8:08 AM EST 12/16/2024 8:30 AM EST [facility] - 12/16/2024 8:54 AM EST Assay cutoffs: Amphetamines ? 1000 ng/mL Barbiturates ?200 ng/mL Benzodiazepines ?? 200 ng/mL Cocaine ? 300 ng/mL Fentanyl ?1 ng/mL Opiates ? 300 ng/mL Oxycodone ? 100 ng/mL THC ?50 ng/mL Semi-quantitative assay for screening purposes only. Unconfirmed screening result should not be used for non-medical purposes. *ALTERNATE METHOD CONFIRMATION DONE UPON REQUEST ONLY* Gab Santos MD LAB URINE ORDERABLES Final Result Performing Organization Address [facility] Co de Phone Number [facility] [address] [place] [address], [place] [phone] * Salicylate level (12/16/2024 8:08 AM EST) Salicylate Level 3.9 2.0 - 29.0 mg/dL LAB CHEMISTRY METHOD 12/16/2024 8:59 AM EST [facility] Blood Venous blood specimen / Unknown Venipuncture / Unknown 12/16/2024 8:08 AM EST 12/16/2024 8:30 AM EST Gab Santos MD LAB BLOOD ORDERABLES Final Result Performing Organization Address [facility] Co de Phone Number [facility] [address] [place] [address], [place] [phone] * (ABNORMAL) Acetaminophen level (12/16/2024 8:08 AM EST) Pathologist [facility] Acetaminophen Level <2.0(L) 10.0 - 30.0 mcg/mL LAB CHEMISTRY METHOD 12/16/2024 9:02 AM EST [facility] Blood Venous blood specimen / Unknown Venipuncture / Unknown 12/16/2024 8:08 AM EST 12/16/2024 8:30 AM EST us Gab Santos MD LAB BLOOD ORDERABLES Final Result Performing Organization Address [facility]/ZIP Co de Phone Number [facility] [address] [place] [address], [place] [phone] * Ethanol (12/16/2024 8:08 AM EST) Ethanol Level <3 0 - 10 mg/dL LAB CHEMISTRY METHOD 12/16/2024 8:59 AM [facility] Blood Venous blood specimen / Unknown Venipuncture / Unknown 12/16/2024 8:08 AM EST 12/16/2024 8:30 AM EST Gab Santos MD LAB BLOOD ORDERABLES Final Result [facility] [address] [place] [address], * (ABNORMAL) Comprehensive metabolic panel (12/16/2024 8:08 AM EST) [facility] Sodium 137 133 - 145 mmol/L LAB CHEMISTRY METHOD 12/16/2024 8:59 AM [facility] Potassium 4.5 3.5 - 5.5 mmol/L LAB CHEMISTRY METHOD 12/16/2024 8:59 AM [facility] Chloride 107 96 - 110 mmol/L LAB CHEMISTRY METHOD 12/16/2024 8:59 AM [facility] CO2 21 21 - 32 mmol/L LAB CHEMISTRY METHOD 12/16/2024 8:59 AM [facility] Anion Gap 9 3 - 11 LAB CHEMISTRY METHOD 12/16/2024 8:59 AM [facility] Glucose 200(H) 70 - 100 mg/dL LAB CHEMISTRY METHOD 12/16/2024 8:59 AM [facility] BUN 19 5 - 25 mg/dL LAB CHEMISTRY METHOD 12/16/2024 8:59 AM [facility] Creatinine 1.37(H) 0.50 - 1.10 mg/dL LAB CHEMISTRY METHOD 12/16/2024 8:59 AM [facility] eGFR 42(L) >=60 mL/min/1. 73m2 LAB CHEMISTRY METHOD 12/16/2024 8:59 AM EST [facility] Comment:Calculation based on the??Chronic Kidney Disease Epidemiology Collaboration (CKD-EPI) equation refit??without adjustment for race. BUN/Creatinine Ratio 13.9 LAB CHEMISTRY METHOD 12/16/2024 8:59 AM [facility] Calcium 8.9 8.5 - 10.5 mg/dL LAB CHEMISTRY METHOD 12/16/2024 8:59 AM [facility] AST (SGOT) 16 10 - 42 unit/L LAB CHEMISTRY METHOD 12/16/2024 8:59 AM [facility] ALT (SGPT) 17 10 - 60 unit/L LAB CHEMISTRY METHOD 12/16/2024 8:59 AM [facility] Alkaline Phosphatase 114 42 - 121 unit/L LAB CHEMISTRY METHOD 12/16/2024 8:59 AM [facility] Total Protein 7.9 6.0 - 8.0 g/dL LAB CHEMISTRY METHOD 12/16/2024 8:59 AM [facility] Albumin 3.8 3.2 - 5.0 g/dL LAB CHEMISTRY METHOD 12/16/2024 8:59 AM [facility] Total Bilirubin 0.6 0.0 - 1.4 mg/dL LAB CHEMISTRY METHOD 12/16/2024 8:59 AM [facility] Blood Venous blood specimen / Unknown Venipuncture / Unknown 12/16/2024 8:08 AM EST 12/16/2024 8:30 AM EST us Gab Santos MD LAB BLOOD ORDERABLES Final Result [facility] [address] [place] [address], documented in this encounter Visit Diagnoses Diagnosis Anxiety- Primary Anxiety state, unspecified Anxiety Anxiety state, unspecified Mild cocaine use disorder (CMS/HCC) documented in this encounter Administered Medications Inactive Administered Medications - up to 3 most recent administrations Medication Order MAR Action Action Date Dose Rate Site LORazepam (ATIVAN) tablet 0.5 mg 0.5 mg, oral, Once, On 12/16/24 at 0855, For 1 dose Given 12/16/2024 9:10 AM EST 0.5 mg documented in this encounter Active and Recently Administered Medications Times are shown in EST. Scheduled Medication Order 12/14/2024 12/15/2024 12/16/2024 LORazepam (ATIVAN) tablet 0.5 mg (COMPLETED) 0.5 mg, oral, Once, On 12/16/24 at 0855, For 1 dose 0910 (Given - Provid er: Aleah Patel RN) documented in this encounter Orders Medications Ordered That Jeramie ht Not Have Been Administered Count Last Ordered Date First Ordered Date LORazepam (ATIVAN) tablet 0.5 mg 1 12/16/19 Consult Count Last Ordered Date First Orde red Date IP CONSULT TO CLOCK ASSEMBLER 1 12/16/2024 documented in this encounter Care Teams Mammalogist Relationship Specialty Start Date End Date Tamra Perez MD [address] [facility] , [address] [facility] D/B/A: [facility] RALPH Bose PCP - General Internal Medicine 02/21/19 documented as of this encounter
--- OUTSIDE RECORDS SUMMARY | 2024-12-29 11:33 | XMS_ITS | Clinical Summary ---
Author Organization [facility] Address [address] [place] [address] Phone Care Team Providers Care Access Clinician Name Role Phone Tamra Perez MD Primary Care Provider Allergies Active Allergy Reactions Criticality Noted Date Comments Aspirin Itching,Swelling 03/23/2019 Fentanyl Rash 03/23/2019 Tramadol Nausea And Vomiting 03/23/2019 Medications LORazepam (ATIVAN) 0.5 mg tablet Take 1 tablet (0.5 mg total) by mouth every 12 (twelve) hours for 3 days. Max Daily Amount: 1 mg 6 tablet 12/16/2024 Active Active Problems Problem Noted Date Diagnosed Date Anxiety 12/16/2024 Encounters Date Type Department Care Team Description 12/16/2024 7:56 AM EST - 12/16/2024 2:16 PM EST Emergency [facility] Emergency [address] [place] [address] Anxiety (Primary Dx); Mild cocaine use disorder (CMS/HCC) Discharge Disposition: Home or Self Care from Last 3 Months Surgical History Surgery Date Site/Laterality Comments BACK SURGERY 2009 PROCEDURE: HISTORICAL BACK SURGERY; COMMENT: lumbar disc SECTION PROCEDURE: HISTORICAL ; COMMENT: x2 HYSTERECTOMY 1993 PROCEDURE: HISTORICAL TOTAL HYSTERECTOMY WITH BSO CHOLECYSTECTOMY 1998 PROCEDURE: HISTORICAL CHOLECYSTECTOMY; COMMENT: open Medical History Medical History Date Comments Hypertension 03/23/2019 DX:Hypertension Hypothyroidism 03/23/2019 DX:Hypothyroidis m Microalbuminuria 03/23/2019 DX:Microalbumin uria 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) 03/23/2019 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); COMMENT: Sees nephrology Vitamin D deficiency 03/23/2019 DX:Vitamin D deficiency Asthma 01/24/2019 DX:Asthma Depression 03/23/2019 DX:Depression; C OMMENT: Thee DDD (degenerative disc disea se), lumbosacral 03/23/2019 DX:DDD (degenerative disc di sease), lumbosacral; COMMENT: 2015 H/o drug seeking behavior and broken pain contract w/ [facility] for low back pain Family History Medical History Relation Name Comments Heart failure Father CAD No Known Problems Mother 68 Diabetes Sister HTN Relation Name Status Comments Father Mother Sister Alive Social History Tobacco Use Types Packs/Day Years [...] on file Sexual Orientation Not on file Obstetrics History Last Filed Vital Signs Vital Sign Reading [...] Mass Index 33.2 12/16/2024 7:40 AM EST Plan of Treatment Health Maintenance Due Date Last Done Comments Breast Cancer Screening 1955 Diabetes: Annual Foot Exam 02/19/1964 Diabetes: Annual Retina Eye Exam 02/19/1964 Hepatitis A Vaccines (1 of 2 - Risk 2-dose series) 1973 Zoster Vaccines (1 of 2) 02/19/2004 RSV Immunization Patients 60+ Years Old (1 - Risk 60-74 years 1-dose series) 2014 Hepatitis B Vaccines (2 of 3 - 19+ 3-dose series) 08/04/2018 07/07/2018 DTaP,Tdap,and Td Vaccines (2 - Td or Tdap) 05/23/2019 05/23/2009 Cholesterol Screening (Lipid Panel) 09/26/2022 Colorectal Cancer Screening: Colonoscopy 09/26/2022 Depression Screening 09/26/2022 Falls Risk Assessment 09/26/2022 Hepatitis C Screening 09/26/2022 Medicare Annual Wellness Visit 09/26/2022 Osteoporosis Screening (Bone Density Screening) 09/26/2022 Social Influencers of Health Screening 09/26/2022 Diabetes: Annual Urine Albumin-Creatinine Ratio (uACR) 10/10/2022 Diabetes: Blood Sugar Control Test (HGBA1C) 10/10/2022 Pneumococcal Vaccine: 50+ Years (3 of 3 - PCV20 or PCV21) 05/12/2024 05/12/2019, 01/29/2009 COVID-19 Vaccine ( - season) 2024 02/20/2021, 01/30/2021 Lung Cancer Screening (Low Dose CT) 07/13/2025 07/13/2024, 10/08/2021 Diabetes: Annual GFR (Glomerular Filtration Rate) 12/16/2025 12/16/2024 Hypertension/CHF/CAD Annual BMP Blood Test 12/16/2025 12/16/2024 Influenza Vaccine Completed 09/07/2024, , 10/12/2022, Additional history exists HIB Vaccines Aged Out No longer eligi ble based on patient's age to complete this topic HPV Vaccines Aged Out No longer eligi ble based on patient's age to complete this topic IPV Vaccines Aged Out No longer eligi ble based on patient's age to complete this topic MMR Vaccines Aged Out No longer eligi ble based on patient's age to complete this topic Meningococcal ACWY Vaccine Aged Out N o longer eligible based on patient's age to complete this topic Meningococcal B Vacine Aged Out No lo nger eligible based on patient's age to complete this topic RSV Immunization Patients Under 20 months Aged Out No longer eligible based on patient's age to complete this topic Varicella Vaccines Aged Out No longer eligible based on patient's age to complete this topic Procedures Procedure Name Priority Date/Time Associated Diagnosis Comments ECG ANNOTATED 12/18/2024 ECG 12-LEAD STAT 12/16/2024 8:17 AM EST THYROXINE FREE STAT Add-on 12/16/2024 8:08 AM EST THYROID STIMULATING HORMONE STAT Add-on 12/16/2024 8:08 AM EST CBC WITH AUTO DIFFERENTIAL STAT 12/16/2024 8:08 AM EST METHADONE SCREEN, URINE STAT 12/16/2024 8:08 AM EST PHENCYCLIDINE, URINE STAT 12/16/2024 8:08 AM EST BUPRENORPHINE SCREEN, URINE STAT 12/16/2024 8:08 AM EST DRUG ABUSE SCREEN 8A PANEL, URINE STAT 12/16/2024 8:08 AM EST SALICYLATE LEVEL STAT 12/16/2024 8:08 AM EST ACETAMINOPHEN LEVEL STAT 12/16/2024 8 :08 AM EST ETHANOL STAT 12/16/2024 8:08 AM EST COMPREHENSIVE METABOLIC PANEL STAT 12/16/2024 8:08 AM EST CBC AND DIFFERENTIAL STAT 12/16/2024 8:[address] LUNG SCREENING LOW DOSE Routine 07/13/2024 11:31 AM EDT Encounter for screening for malignant neoplasm of respiratory organs from Last 3 Months or Most Recently Relevant to Health Maintenance Results * ECG-Annotated (12/18/2024) us Provider Onbase MD ECG ORDERABLES Final Result * ECG 12 lead (12/16/2024 8:17 AM EST) Ventricular Rate ECG 63 BPM GEMUSE Atrial Rate 63 BPM GEMUSE P-R Interval 136 ms GEMUSE QRS Duration 84 ms GEMUSE Q-T Interval 434 ms GEMUSE QTc 444 ms GEMUSE P Wave [place] 63 degrees GEMUSE R [place] -10 degrees GEMUSE T [place] 54 degrees GEMUSE ECG Interpretation Normal sinus rhythm Possible Left atrial enlargement Borderline ECG When compared with ECG of 08-NOV-2018 18:47, No significant change was found Confirmed by LAWRENCE DE JESUS ([id number]) on 12/16/2024 3:34:16 PM GEMUSE 12/16/2024 8:17 AM EST 12/16/2024 3:34 PM EST us Gab Santos MD ECG ORDERABLES Final Resul t GEMUSE * (ABNORMAL) Drug abuse screen 8a panel, urine (12/16/2024 8:08 AM EST) Amphetamine Screen, Ur Negative Negative LAB CHEMISTRY METHOD 5 8:54 AM [facility] Comment:Certain OTC medicati ons containing ephedrine, phenylephrine, pseudoephedrine and phenylpropanolamine can cause false positive results. Barbiturate Screen, Ur Negative Negative LAB CHEMISTRY METHOD 5 8:54 AM [facility] Benzodiazepine Screen, Ur Negative Negative LAB CHEMISTRY METHOD 5 8:54 AM [facility] Cocaine Screen, Ur Positive(A ) Negative LAB CHEMISTRY METHOD 5 8:54 AM [facility] Opiate Screen, Ur Negative Negative LAB CHEMISTRY METHOD 5 8:54 AM [facility] Cannabinoid (THC) Screen, Ur Negative Negative LAB CHEMISTRY METHOD 5 8:54 AM [facility] Comment:Specimens from patie nts taking pantoprazole sodium (Protonix) have been shown to produce false positive results. Oxycodone Screen, Ur Negative Negative LAB CHEMISTRY METHOD 5 8:54 AM [facility] Fentanyl, Ur Negative Negative LAB CHEMISTRY METHOD 5 8:54 AM [facility] Urine Urine specimen obtained by clean catch procedure / Unknown Non-blood Collection / Unknown 12/16/2024 8:08 AM EST 12/16/2024 8:30 AM EST Narrative [facility] - 12/16/2024 8:54 AM [...] URINE ORDERABLES Final Result Performing Organization Address [facility] de Phone Number [facility] [address] [place] [address], * Buprenorphine screen, urine (12/16/2024 8:08 AM EST) [facility] Buprenorphine Screen Urine Negative Negative LAB CHEMISTRY METHOD 12/16/2024 8:54 AM EST [facility] Urine Urine specimen obtained by clean catch procedure / Unknown Non-blood Collection / Unknown 12/16/2024 8:08 AM EST 12/16/2024 8:30 AM EST Narrative [facility] - 12/16/2024 8:54 AM EST Assay cutoff 5 ng/mL Semi-quantitative assay for screening purposes only. Unconfirmed screening result should not be used for non-medical purposes. *ALTERNATE METHOD CONFIRMATION DONE UPON REQUEST ONLY* aGb Santos MD LAB URINE ORDERABLES Final Result Performing Organization Address [facility]/ZIP Co de Phone Number [facility] [address] [place] [address], * Methadone, urine (12/16/2024 8:08 AM EST) [facility] Methadone Screen, Urine Negative Negative LAB CHEMISTRY METHOD 12/16/2024 8:54 AM [facility] Comment: Assay cutoff 300 ng/mL Semi-quantitative assay for screening purposes only. Unconfirmed screening result should not be used for non-medical purposes. *ALTERNATE METHOD CONFIRMATION DONE UPON REQUEST ONLY* Urine Urine specimen obtained by clean catch procedure / Unknown Non-blood Collection / Unknown 12/16/2024 8:08 AM EST 12/16/2024 8:30 AM EST Gab Santos MD LAB URINE ORDERABLES Final Result Performing Organization Address [facility]/ZIP Co de Phone Number [facility] [address] [place] [address], [place] [phone] * (ABNORMAL) CBC auto differential (12/16/2024 8:08 AM EST) [facility] WBC 9.7 4.8 - 10.8 K/mcL LAB HEMETOLOGY METHOD 12/16/2024 8:39 AM [facility] RBC 3.90 3.80 - 4.80 M/mcL LAB HEMETOLOGY METHOD 12/16/2024 8:39 AM [facility] Hemoglobin 12.6 11.5 - 16.0 g/dL LAB HEMETOLOGY METHOD 12/16/2024 8:39 AM [facility] Hematocrit 37.9 35.0 - 47.0 % LAB HEMETOLOGY METHOD 12/16/2024 8:39 AM [facility] MCV 96.9 79.0 - 98.0 FL LAB HEMETOLOGY METHOD 12/16/2024 8:39 AM [facility] MCH 32.2(H) 27.0 - 32.0 pcg LAB HEMETOLOGY METHOD 12/16/2024 8:39 AM [facility] MCHC 33.2 32.0 - 37.0 g/dL LAB HEMETOLOGY METHOD 12/16/2024 8:39 AM [facility] RDW 12.5 11.0 - 15.0 % LAB HEMETOLOGY METHOD 12/16/2024 8:39 AM [facility] Platelets 221 130 - 400 K/mcL LAB HEMETOLOGY METHOD 12/16/2024 8:39 AM [facility] MPV 9.1 7.0 - 11.0 FL LAB HEMETOLOGY METHOD 12/16/2024 8:39 AM [facility] NRBC 0.0 <1.0 % LAB HEMETOLOGY METHOD 12/16/2024 8:39 AM [facility] NRBC Absolute 0.00 <0.10 K/mcL LAB HEMETOLOGY METHOD 12/16/2024 8:39 AM [facility] Neutrophils Relative 59.3 % LAB HEMETOLOGY METHOD 12/16/2024 8:39 AM [facility] Lymphocytes Relative 31.7 % LAB HEMETOLOGY METHOD 12/16/2024 8:39 AM [facility] Monocytes Relative 7.2 % LAB HEMETOLOGY METHOD 12/16/2024 8:39 AM [facility] Eosinophils Relative 0.9 % LAB HEMETOLOGY METHOD 12/16/2024 8:39 AM [facility] Basophils Relative 0.6 % LAB HEMETOLOGY METHOD 12/16/2024 8:39 AM [facility] Immature Granulocytes Relative 0.3 % LAB HEMETOLOGY METHOD 12/16/2024 8:39 AM [facility] Neutrophils Absolute 5.72 1.50 - 7.00 K/mcL LAB HEMETOLOGY METHOD 12/16/2024 8:39 AM EST [facility] Lymphocytes Absolute 3.06 1.00 - 5.00 K/[facility] LAB HEMETOLOGY METHOD 12/16/2024 8:39 AM [facility] Monocytes Absolute 0.70 0.20 - 1.00 K/[facility] LAB HEMETOLOGY METHOD 12/16/2024 8:39 AM EST [facility] Eosinophils Absolute 0.09 0.00 - 0.50 K/[facility] LAB HEMETOLOGY METHOD 12/16/2024 8:39 AM EST [facility] Basophils Absolute 0.06 0.00 - 0.20 K/[facility] LAB HEMETOLOGY METHOD 12/16/2024 8:39 AM [facility] Immature Granulocytes Absolute 0.03 0.00 - 0.03 K/[facility] LAB HEMETOLOGY METHOD 12/16/2024 8:39 AM [facility] Blood Venous blood specimen / Unknown Venipuncture / Unknown 12/16/2024 8:08 AM EST 12/16/2024 8:30 AM EST Gab Santos MD LAB BLOOD ORDERABLES Final Result [facility] [address] [place] [address], * Phencyclidine, urine (12/16/2024 8:08 AM EST) PCP Scrn, Ur Negative Negative LAB CHEMISTRY METHOD 12/16/2024 8:54 AM EST [facility] Comment: Assay cutoff 25 ng/mL Semi-quantitative assay for screening purposes only. Unconfirmed screening result should not be used for non-medical purposes. *ALTERNATE METHOD CONFIRMATION DONE UPON REQUEST ONLY* Urine Urine specimen obtained by clean catch procedure / Unknown Non-blood Collection / Unknown 12/16/2024 8:08 AM EST 12/16/2024 8:30 AM EST Gab Santos MD LAB URINE ORDERABLES Final Result Performing Organization Address [facility] Co de Phone Number [facility] [address] [place] [address], [place] [phone] * Thyroid stimulating hormone (TSH) (12/16/2024 8:08 AM EST) TSH 0.93 0.40 - 4.00 mcIU/mL LAB CHEMISTRY METHOD 12/16/2024 9:32 AM EST [facility] Blood Venous blood specimen / Unknown Venipuncture / Unknown 12/16/2024 8:08 AM EST 12/16/2024 8:30 AM EST Honey CORRAL LAB BLOOD ORDERABLES Fin al Result Performing Organization Address [facility] de Phone Number [facility] [address] [place] [address], [place] [phone] * T4, free (12/16/2024 8:08 AM EST) Free T4 1.28 0.70 - 1.80 ng/dL LAB CHEMISTRY METHOD 12/16/2024 9:32 AM EST [facility] Blood Venous blood specimen / Unknown Venipuncture / Unknown 12/16/2024 8:08 AM EST 12/16/2024 8:30 AM EST Hnoey CORRAL LAB BLOOD ORDERABLES Fin al Result Performing Organization Address [facility] Co de Phone Number [facility] [address] [place] [address], [place] [phone] * Ethanol (12/16/2024 8:08 AM EST) Ethanol Level <3 0 - 10 mg/dL LAB CHEMISTRY METHOD 12/16/2024 8:59 AM EST [facility] Blood Venous blood specimen / Unknown Venipuncture / Unknown 12/16/2024 8:08 AM EST 12/16/2024 8:30 AM EST Gab Santos MD LAB BLOOD ORDERABLES Final Result Performing Organization Address [facility]/ZIP Co de Phone Number [facility] [address] [place] [address], [place] [phone] * (ABNORMAL) Acetaminophen level (12/16/2024 8:08 AM EST) Acetaminophen Level <2.0(L) 10.0 - 30.0 mcg/mL LAB CHEMISTRY METHOD 12/16/2024 9:02 AM EST [facility] Blood Venous blood specimen / Unknown Venipuncture / Unknown 12/16/2024 8:08 AM EST 12/16/2024 8:30 AM EST Gab Santos MD LAB BLOOD ORDERABLES Final Result Performing Organization Address [facility] de Phone Number [facility] [address] [place] [address], [place] [phone] * Salicylate level (12/16/2024 8:08 AM EST) Salicylate Level 3.9 2.0 - 29.0 mg/dL LAB CHEMISTRY METHOD 12/16/2024 8:59 AM EST [facility] Blood Venous blood specimen / Unknown Venipuncture / Unknown 12/16/2024 8:08 AM EST 12/16/2024 8:30 AM EST Gab Santos MD LAB BLOOD ORDERABLES Final Result Performing Organization Address City/[facility]/ZIP Co de Phone Number [facility] [address] [place] [address], [place] [phone] * (ABNORMAL) Comprehensive metabolic panel (12/16/2024 8:08 AM EST) Sodium 137 133 - 145 mmol/L LAB CHEMISTRY METHOD 12/16/2024 8:59 AM [facility] Potassium 4.5 3.5 - 5.5 mmol/L LAB CHEMISTRY METHOD 12/16/2024 8:59 AM [facility] Chloride 107 96 - 110 mmol/L LAB CHEMISTRY METHOD 12/16/2024 8:59 AM [facility] CO2 21 21 - 32 mmol/L LAB CHEMISTRY METHOD 12/16/2024 8:59 AM [facility] Anion Gap 9 3 - 11 LAB CHEMISTRY METHOD 12/16/2024 8:59 AM [facility] Glucose 200(H) 70 - 100 mg/dL LAB CHEMISTRY METHOD 12/16/2024 8:59 AM [facility] BUN 19 5 - 25 mg/dL LAB CHEMISTRY METHOD 12/16/2024 8:59 AM [facility] Creatinine 1.37(H) 0.50 - 1.10 mg/dL LAB CHEMISTRY METHOD 12/16/2024 8:59 AM [facility] eGFR 42(L) >=60 mL/min/1. 73m2 LAB CHEMISTRY METHOD 12/16/2024 8:59 AM [facility] Comment:Calculation based on the??Chronic Kidney Disease Epidemiology Collaboration (CKD-EPI) equation refit??without adjustment for race. BUN/Creatinine Ratio 13.9 LAB CHEMISTRY METHOD 12/16/2024 8:59 AM [facility] Calcium 8.9 8.5 - 10.5 mg/dL LAB CHEMISTRY METHOD 12/16/2024 8:59 AM [facility] AST (SGOT) 16 10 - 42 unit/L LAB CHEMISTRY METHOD 12/16/2024 8:59 AM [facility] ALT (SGPT) 17 10 - 60 unit/L LAB CHEMISTRY METHOD 12/16/2024 8:59 AM EST [facility] Alkaline Phosphatase 114 42 - 121 unit/L LAB CHEMISTRY METHOD 12/16/2024 8:59 AM EST [facility] Total Protein 7.9 6.0 - 8.0 g/dL LAB CHEMISTRY METHOD 12/16/2024 8:59 AM EST [facility] Albumin 3.8 3.2 - 5.0 g/dL LAB CHEMISTRY METHOD 12/16/2024 8:59 AM EST [facility] Total Bilirubin 0.6 0.0 - 1.4 mg/dL LAB CHEMISTRY METHOD 12/16/2024 8:59 AM EST [facility] Blood Venous blood specimen / Unknown Venipuncture / Unknown 12/16/2024 8:08 AM EST 12/16/2024 8:30 AM EST us Gab Santos MD LAB BLOOD ORDERABLES Final Result [facility] [address] [place] [address], * CT LUNG SCREENING LOW DOSE (07/13/2024 11:31 AM EDT) Anatomical Region Laterality Modality Computed Tomogra phy 07/12/2024 1:53 PM EDT Narrative 07/13/2024 11:31 AM EDT Diagnostic Imaging Department [address] [place] [address] Patient: ??HILDA GARCIA E ?/Age/Sex: 1955 - 69 - F Unit#: ??[id number] ? Location/Status: ??SPDICATLS/REG CLI ? Mnemonic/Ordering Site: ??CTLUNGLD/SPCT Ordering Physician: ??KRYSTYNA BRITO MD CT Lung Screening Low Dose - 07/12/24 - 1400 Report Status:Signed Indication: Greater than 20 total pack-year smoking history, asymptomatic current smoker Technique: Low-dose CT scan of the chest obtained as a lung cancer screening study. Multiplanar reformatted images were obtained. ??Dose reduction technique: ASIR (Adaptive statistical iterative reconstruction) and/or AEC (automated exposure control) DLP: ??158.31 mGy-cm COMPARISON: September 2021. FINDINGS: Lack of intravenous contrast limits evaluation of the petra, vascular structures and visualized abdominal viscera. Lungs/airways: Trachea and central airways are patent. ??Linear scarring at the lung bases as well as the lingula, similar to prior. ??Consolidation in the right middle lobe; similar to prior. ??Differential lung attenuation in keeping with airway trapping. Scattered pulmonary nodules, similar to prior. ??For example, 3 mm solid nodule in the left lung apex (series 3, image 26). ??Calcified granulomata. Base of the neck, mediastinum, heart, chest wall, vessels: ??The assessment of hilar lymphadenopathy is difficult without the use of IV contrast. ??Calcified mediastinal lymph node which may represent stigmata of prior granulomatous disease. ??Thoracic aortic and coronary artery calcifications. Upper abdomen: This study was performed without contrast and with lower than standard dose. These factors reduce the sensitivity for detection of small les ions in the upper abdomen. No significant abnormality is seen Bones/soft tissues: Anterior marginal osteophytes of the thoracic spine. IMPRESSION: No suspicious pulmonary nodules Lung RADS 2: Benign Appearance or Behavior - Continue annual screening with LDCT in 12 months. Dictating Physician: ??KATHY SANTOYO MD Electronically Signed by: ??KATHY SANTOYO MD Dic Date/Time: ??07/13/24 1123 Sign date/Time: ??07/13/24 1131 Procedure Note Kathy Santoyo MD - 08/09/2024 Diagnostic Imaging Department [address] [place] [id number] Patient: HILDA GARCIA Maurice /Age/Sex: 1955 - 69 - F Unit#: [id number] Location/Status: [facility] CLI Mnemonic/Ordering Site: [facility] Ordering Physician: KRYSTYNA BRITO MD CT Lung Screening Low Dose - 07/12/24 - 1400 Report Status:Signed Indication: Greater than 20 total pack-year smoking history,asymptomatic current smoker Technique: Low-dose CT scan of the chest obtained as a lung cancerscreening study. Multiplanar reformatted images were obtained. Dose reductiontechnique: ASIR (Adaptive statistical iterative reconstruction) and/or AEC(automated exposure control) DLP: 158.31 mGy-cm COMPARISON: September 2021. FINDINGS: Lack of intravenous contrast limits evaluation of the petra,vascular structures and visualized abdominal viscera. Lungs/airways: Trachea and central airways are patent. Linear scarring atthe lung bases as well as the lingula, similar to prior. Consolidation in theright middle lobe; similar to prior. Differential lung attenuation in keepingwith airway trapping. Scattered pulmonary nodules, similar to prior. For example, 3 mm solidnodule in the left lung apex (series 3, image 26). Calcified granulomata. Base of the neck, mediastinum, heart, chest wall, vessels: The assessmentof hilar lymphadenopathy is difficult without the use of IV contrast.Calcified mediastinal lymph node which may represent stigmata of priorgranulomatous disease. Thoracic aortic and coronary artery calcifications. Upper abdomen: This study was performed without contrast and with lowerthan standard dose. These factors reduce the sensitivity for detection of smallles ions in the upper abdomen. No significant abnormality is seen Bones/soft tissues: Anterior marginal osteophytes of the thoracic spine. IMPRESSION: No suspicious pulmonary nodules Lung RADS 2: Benign Appearance or Behavior - Continue annual screeningwith LDCT in 12 months. Dictating Physician: KATHY SANTOYO MD Electronically Signed by: KATHY SANTOYO MD Dic Date/Time: 07/13/24 1123 Sign date/Time: 07/13/24 1131 Krystyna Brito MD IM CT PROCEDURES Final Result from Last 3 Months or Most Recently Relevant to Health Maintenance Insurance MEDICARE Member Subscriber Plan / Payer (Ef fective 2019-Present) Name:Hilda Garcia Relation to Subscriber:Self Name:Hilda Garcia Payer ID:[id number] Group ID:[id number] Type:Not on file Address: [facility] [address] [id number] Care Teams Access Clinician Relationship Specialty Start Date End Date Tamra Perez MD [address] [place] [address] , [facility] [address] [facility] D/B/A: [facility] [place], [place] PCP - General Internal Medicine 02/21/19
--- OUTSIDE RECORDS SUMMARY | 2024-12-29 11:33 | XMS_ITS | Encounter Summary ---
Author Organization [facility] Address [address] [place] [address] Care Team Providers Care Central Office Operator Supervisor Name Role Phone Raymon Reece NP Primary Care Provider [phone] Reason for Visit * Reason Comments Encounter Created in Error Encounter Details Date Type Department Care Team (Late st Contact Info) Description 04/14/2017 / Visits [address] [phone] Mihaela Sutherland LICSW [address] [place] [id number] Social History Tobacco Use Types Packs/Day Years Used Date Smoking Tobacco: Never Assessed Comments Unknown Sex and Gender Information Value Date Recorded Sex Assigned at Not on file Legal Sex Female 11:36 AM PDT Gender Identity Not on file Sexual Orientation Not on file documented as of this encounter Miscellaneous Notes * Patient Instructions - ANKITA Griffin - 04/14/2017 11:13 AM EDT documented in this encounter Plan of Treatment Not on file documented as of this encounter Visit Diagnoses Diagnosis ERRONEOUS ENCOUNTER--DISREGARD- Primary documented in this encounter Care Teams Central Office Operator Supervisor Relationship Specialty Start Date End Date Raymon Reece NP [address] [place] [phone] PCP - General 09/01/18 documented as of this encounter
[2024-12-29 11:55] LABS: Appearance Urine Turbid; Color Urine Yellow; Glucose Urine UA Negative (Negative); Leukocyte Esterase Urine Large (3+) (Negative); Nitrite Urine Positive (Negative); PH 5.5 (5.0-9.0); UMIC TRIGGER UACC YES; Urine Blood Moderate (2+) (Negative); Urine Ketones Negative (Negative); Urine Protein 30 (1+) mg/dL (Neg-Trace)
[2024-12-29 12:10] LABS: Bacteria Urine 4+ (None Seen); Hyaline Casts Urine 0-2 /LPF (0-2); UACC Culture Trigger YES; WBC Urine >50 /HPF (0-5)
[2024-12-29 12:46] LABS: Alanine Aminotransferase 28 U/L (0-31); Albumin Level 3.9 g/dL (3.5-5.0); Alkaline Phosphatase 104 U/L (39-117); Anion Gap 12 (12-20); Aspartate Amino Transferase 23 U/L (5-31); Bilirubin Total 0.2 mg/dL (0.0-1.0); Blood Urea Nitrogen 32 mg/dL (9-16); Calcium 8.8 mg/dL (8.4-10.2); Carbon Dioxide 26 mmol/L (22-29); Chloride 107 mmol/L (96-108); Cholesterol 146 mg/dL (<200); Estimated Glomerular Filt Rate 33; Glucose Random 186 mg/dL (60-115); HDL Cholesterol 49 mg/dL (>40); LDL Cholesterol Calculated 82 mg/dL (<100); Potassium 4.3 mmol/L (3.3-5.1); Sodium 141 mmol/L (135-145); Total Protein 7.8 g/dL (6.5-8.0); Triglycerides 79 mg/dL (<150)
[2024-12-29 12:49] LABS: Creatinine Urine 161.08 mg/dL; Microalbum/Creatinine Ratio Ur 106.7 ug/mg cr (<30)
[2024-12-29 13:11] LABS: Vitamin D 25-OH Total 35.7 ng/mL (>30)
[2025-01-01 17:27] LABS: TS Negative Control Passed; TS Panel A 1; TS Panel B 1; TS Positive Control Passed; TSpotTB Negative (Negative)
== END 2024-12-29 10:19 | disposition home or self-care (01) ==
LOC: HO.LAB 10:18
PROVIDERS: PCP Internal Medicine; Visit Provider Internal Medicine
DX: E11.9 Type 2 diabetes mellitus without complications (principal); Z11.1 Encounter for screening for respiratory tuberculosis; R80.9 Proteinuria, unspecified; Z79.4 Long term (current) use of insulin; E78.5 Hyperlipidemia, unspecified; E55.9 Vitamin D deficiency, unspecified
CPT/HCPCS: 36415; 80053; 80061; 81001; 82043; 82306; 82570; 86481; 87086; 87088; 87186

== ENCOUNTER 2025-01-11 13:07 | Outpatient (AMB) | payer OTHER, SELFPAY ==
--- NOTE | 2025-01-11 13:11 | A.OFFPC_ITS ---
Vital Signs 01/11/25 13:17 Height 5 ft Weight 166 lb BMI 32.4 BP 136/70 Blood Pressure Location Lt brachial Position Sitting Intake Visit Reasons: dm Intake Note: Patient here for a follow up DM Assistant Broker Required: No Accompanied by: Self / Same As Patient Allergies aspirin Allergy (Intermediate, Verified 01/11/25 13:30) swelling, pruritus fentanyl Allergy (Intermediate, Verified 01/11/25 13:30) rash tramadol Allergy (Intermediate, Verified 01/11/25 13:30) nausea varenicline [From Chantix] Allergy (Intermediate, Verified 01/11/25 13:30) anxiety Medication List - Last Reconciled 01/11/25 by Tamra Perez MD amlodipine 10 mg PO DAILY 90 days atorvastatin 10 mg PO BEDTIME 90 days blood sugar diagnostic (FreeStyle Lite Strips) Use 1 test strip twice a day blood-glucose meter (FreeStyle Lite Meter kit) As directed cholecalciferol (vitamin D3) 50 mcg PO DAILY 90 days fluticasone propion-salmeterol 115-21 mcg/actuation (Advair HFA) 2 puffs inhalation Q12H 30 days hydroxyzine pamoate 25 mg PO BID insulin glargine (Lantus Solostar U-100 Insulin) 15 units (0.15 mL) subcut QPM 90 days latanoprost 0.005% 0 drps ophthalmic (eye) lisinopril 20 mg PO DAILY 90 days nicotine (polacrilex) 4 mg buccal Q8H PRN 30 days oxycodone 10 mg PO Q8H PRN 30 days pen needle, diabetic Use 1 pen needle once a day quetiapine 400 mg PO BEDTIME quetiapine 200 mg PO BEDTIME Tobacco use date assessed: 01/11/25 Fall risk assessment: No Falls in past year Last assessed Fall Risk: 01/11/25 Dental Screening Dental Screen Date: 01/11/25 Did you have a dental visit in the last 12 months?: No Did you have a dental problem in the last 6 months where you did not have access to dental care?: No Was dental information given to patient?: Patient has dentist HPI HPI Comments History of Present Illness Details The patient is a 69-year-old female presenting with a follow-up visit for her chronic conditions, primarily diabetes mellitus, essential hypertension, hyperlipidemia, COPD and a recent urinary tract infection. Her diabetes is well- controlled with Lantus, and she reports good management of her hypertension with amlodipine and lisinopril, although she has recently run out of lisinopril. Her recent laboratory results indicate stable cholesterol levels with atorvastatin use. She had a urinary tract infection earlier in the month and was treated with an antibiotic, yet continues to experience some discomfort. The patient also deals with depression with anxiety and insomnia, for which she takes Quetiapine. 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 Despite her history of smoking, she is working on reducing her intake and plans to quit. Furthermore, she has a scheduled lung cancer screening, indicating ongoing concern for her pulmonary health. Also has opioid dependence due to chronic lumbar pain. [facility] Medical History Nicotine dependence, cigarettes, uncomplicated Type 2 diabetes mellitus COPD (chronic obstructive pulmonary disease) Chondrocalcinosis of right knee Osteoarthritis of right knee Hypovitaminosis D Opioid dependence Essential hypertension Lumbar degenerative disc disease Surgical History History of cataract surgery History of colonoscopy History of cholecystectomy (~1998) History of total abdominal hysterectomy and bilateral salpingo-oophorectomy (~1993) History of section History of lumbar discectomy (~2009) Family History Father CHF (congestive heart failure) CVD (cardiovascular disease) Mother Medical history unknown Family/Other FH: mental illness Son No problems noted. Social History Housing: Apartment Alcohol intake: never Patient Tobacco Use Status: Current everyday Tobacco user Tobacco use type: Cigarette Cigarettes Per Day: 5 Years Smoked: (onset 11yo, 1/2-3/4ppd x 56yrs, 35pyh) Packs per year/per ci.00 e-Cigarette/Vaping Use: Never Used Second Hand Smoke Exposure: No service: No Current occupational status: unemployed Cognitive needs: Yes Hearing needs: No Vision needs: Yes Questionnaire PHQ-9 Over the last 2 weeks, how often have you been bothered by any of the following problems? 1. Little interest or pleasure in doing things: not at all 2. Feeling down, depressed, or hopeless: not at all 3. Trouble falling or staying asleep, or sleeping too much: not at all 4. Feeling tired or having little energy: not at all 5. Poor appetite or overeating: not at all 6. Feeling bad about yourself - or that you are a failure or have let yourself or your family down: not at all 7. Trouble concentrating on things, such as reading the newspaper or watching television: not at all 8. Moving or speaking so slowly that other people could have noticed. Or the opposite - being so fidgety or restless that you have been moving around a lot more than usual: not at all 9. Thoughts that you would be better off or of hurting yourself in some way: not at all Total score: 0 Depression Screening Interpretation: Negative Depression Screening Done: Yes 31918 - PHQ-9 Billing: Yes Source: Developed by Drs. Chato Alvarado, Jania Carpio, Nico Tang and colleagues, with an educational autumn from [employer]. Thrive Questionnaire Date Thrive assessed: 01/11/25 I am a: Patient What is your living situation today?: I have a steady place to live Within the past 12 months, did the food you bought not last and you didn't have the money to get more?: Never true Within the past 12 months, did you worry whether your food would run out before you got money to buy more?: Never true Do you have trouble paying for medicines?: No Do you have trouble getting transportation to medical appointments?: No Do you have trouble paying your heating and electricity bill?: No Do you have trouble taking care of your child, family member or friend?: No Do you have trouble with day-to-day activities such as bathing, preparing meals, shopping, managing finances, etc.?: No Are you currently unemployed and looking for a job?: No Are you interested in more education?: No Please select the resources that you would like help with: None Currently or been in a relationship where the following occur: No concerns reported THRIVE Score: 0 AUDIT C Alcohol Use Questionnaire (AUDIT-C) 1. How often do you have a drink containing alcohol?: Never Total Score: 0 DESMOND-7 AMB Questionnaire DESMOND-7 Date DESMOND - 7 assessed: 01/11/25 Feeling nervous, anxious, or on edge: 0 = Not at all Not being able to stop or control worryin = Not at all Worrying too much about different things: 0 = Not at all Trouble relaxin = Not at all Being so restless that it is hard to sit still: 0 = Not at all Becoming easily annoyed or irritable: 0 = Not at all Feeling afraid as if something awful might happen: 0 = Not at all Total DESMOND-7 score (0-4 normal; 5-9 mild; 10-14 moderate; 15-21 severe): 0 Source: Developed by Drs. Chato Alvarado, Jania Carpio, Nico Tang and colleagues, with an educational autumn from [employer]. Review of Systems Const All systems reviewed & are unremarkable except as noted in HPI and below Card Denies chest pain at rest, Denies chest pain with activity, Denies edema, Denies irregular heart rhythm, Denies claudication, Denies orthopnea, Denies paroxysmal nocturnal dyspnea and Denies slow heart rate Physical exam (Primary Care) Vital Signs: Last Vital Signs BP 136/70 01/11/25 13:17 BMI result Body Mass Index 32.4 BMI Assessment/Plan discussion: High BMI High, discussed plan: lifestyle, weight reduction, dietary and physical activity Tobacco/Smoking Status: Tobacco use Status Tobacco use date assessed 01/11/25 01/11/25 13:15 Patient Tobacco Use Status Current everyday Tobacco 01/11/25 13:15 Tobacco use type Cigarette 01/11/25 13:15 e-Cigarette/Vaping Use Never Used 01/11/25 13:15 Are you ready to quit: Yes Relapse Prevention: discussed the importance of a supportive environment, discussed extending NRT, discussed negative mood or depression after quitting, weight gain after smoking is common and discussed dietary, exercise and/or lifestyle changes Number of minutes spent counselin CPT code: 24278 - 4-10 Minutes PHQ-9: PHQ-9 Score PHQ-9: Total score 0 01/11/25 13:31 Depression Screening Interpretation: Negative Thrive Assessment: Date of Thrive Assessment Date Thrive assessed 01/11/25 01/11/25 13:15 Currently or been in a relationship where the following occur: No concerns reported Resp Effort & Inspection: normal respiratory effort Auscultation: clear to auscultation bilaterally Cardio Jugular venous distension: no JVD Rate: regular rate Rhythm: regular rhythm Heart sounds: S1 normal heart sound present and S2 normal heart sound present Extrem General: Yes full ROM Results AMB Hemoglobin A1c AMB Hemoglobin A1c 6.2 % Last Edit by BRIANNA Quintero on 01/11/25 13:2 5 Results Reviewed Results Reviewed: Laboratory Last Values Hgb A1c (Clinic) 6.2 % (4.0-6.0) H 01/11/25 13:11 Coding Level of Care Code Est Pt Level 4 (86086) Complex EM visit Add On G2211 Diagnoses Type 2 diabetes mellitus without complication, with long-term current use of insulin E11.9; Z79.4 Diabetes mellitus terminologist insulin use: with terminologist use Diabetes mellitus complication status: without complication Mild major depression F32.0 Uncomplicated opioid dependence F11.20 Substance use status: uncomplicated Essential hypertension I10 Hyperlipidemia LDL goal <70 E78.5 COPD (chronic obstructive pulmonary disease) J44.9 Additional Codes PHQ-9 - 01246 - PHQ-9 Billing: Yes ([id number]) Vital Signs *Quality* - CPT code: 01154 - 4-10 Minutes ([id number]) Time Spent (min) 25 Assessment & Plan Assessment & Plan (1) Type 2 diabetes mellitus: Code(s): E11.9 - Type 2 diabetes mellitus without complications Category: Medical Qualifiers: Diabetes mellitus intermediate insulin use: with terminologist use Diabetes mellitus complication status: without complication Qualified Code(s): E11.9 - Type 2 diabetes mellitus without complications; Z79.4 - computer terminal operator (current) use of insulin (2) Mild major depression: Code(s): F32.0 - Major depressive disorder, single episode, mild Category: Medical (3) Opioid dependence: Code(s): F11.20 - Opioid dependence, uncomplicated Category: Medical Qualifiers: Substance use status: uncomplicated Qualified Code(s): F11.20 - Opioid dependence, uncomplicated (4) Essential hypertension: Code(s): I10 - Essential (primary) hypertension Category: Medical (5) Hyperlipidemia LDL goal <70: Code(s): E78.5 - Hyperlipidemia, unspecified Category: Medical (6) COPD (chronic obstructive pulmonary disease): Code(s): J44.9 - Chronic obstructive pulmonary disease, unspecified Category: Medical Plan The patient's diabetes, hypertension, and cholesterol levels are currently well- managed, but continued monitoring is necessary to ensure her LDL reaches the target level. Persistent symptoms of her urinary tract infection will be tracked closely to determine if further treatment is required. 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 Regarding her depression with anxiety and insomnia, continuation of Quetiapine is advised. Encouragement for reduced tobacco use is ongoing, aiming for complete cessation given its impact on her respiratory health. The patient should ensure to renew her lisinopril prescription to maintain hypertension control. Patient was informed and verbally consented to the use of an ambient scribe for clinic note documentation during this visit. During our discussion, we reviewed the management of her diabetes mellitus with Lantus, and I confirmed her hypertension and cholesterol are under control with amlodipine and atorvastatin; however, I emphasized the need to achieve the LDL target level. The patient's persistent urinary discomfort was discussed, and she was advised to contact me if symptoms do not resolve. We talked about her COPD management and the importance of the scheduled lung cancer screening. I encouraged her progress in reducing tobacco consumption, highlighting the health benefits of smoking cessation. The patient's current mental health treatment with Quetiapine was reviewed, affirming it continues to be beneficial. Finally, we stressed the importance of taking her medications consistently and the need to refill lisinopril. Orders: Orders AMB Hemoglobin A1c Today E11.9 - Type 2 diabetes mellitus without complications, Z79.4 - custodial (current) use of insulin Medications: Changed From pen needle, diabetic ([employer] Pen Needle) Use 1 pen needle once a day 100 ea 3RF E11.65 - Type 2 diabetes mellitus with hyperglycemia To pen needle, diabetic Use 1 pen needle once a day 100 ea 3RF E11.65 - Type 2 diabetes mellitus with hyperglycemia Refilled lisinopril 20 mg PO DAILY 90 tabs 0RF 90 days E11.9 - Type 2 diabetes mellitus without complications, Z79.4 - custodial (current) use of insulin Patient Instructions: - Continue taking Lantus, amlodipine, and atorvastatin as prescribed. - Follow up with ampoule washing machine operator and attend scheduled lung cancer screening CT. - Monitor urinary symptoms and report persistent discomfort. - Renew lisinopril prescription to ensure hypertension control. - Work towards complete smoking cessation, reducing intake as much as possible. - Continue current treatment for depression and follow mental health advice. - Report any new symptoms or concerns immediately.
[2025-01-11 13:17] VITALS: BP 136/70; BMI 32.4
--- OUTSIDE RECORDS SUMMARY | 2025-01-11 15:37 | XMS_ITS | Encounter Summary ---
Author Organization [facility] Address [address] [place] [address] Care Team Providers Care Box Turner Name Role Phone Raymon Reece NP Primary Care Provider Reason for Visit * Reason Comments Encounter Created in Error Encounter Details Date Type Department Care Team (Late st Contact Info) Description 04/14/2017 / Visits [address] [phone] Mihaela Sutherland LICSW [address] [place] [id number] Social History Tobacco Use Types Packs/Day Years [...] Primary documented in this encounter Care Teams Box Turner Relationship Specialty Start Date End Date Raymon Reece NP [address] [place] [phone] PCP - General 09/01/18 documented as of this encounter
--- OUTSIDE RECORDS SUMMARY | 2025-01-11 15:37 | XMS_ITS | Clinical Summary ---
Author Organization [facility] Facility Address [address] [place] [address], [place] [address] Care Team Providers Care Company Accountant Name Role Phone Tamra Keenan MD Primary Care Provider [phone] Social History Tobacco Use Types Packs/Day Years [...] patient's age to complete this topic Insurance [facility] [place] [id number] Care Teams Company Accountant Relationship Specialty Start Date End Date Tamra Keenan MD [address] [place], [place] PCP - General 08/29/19
--- OUTSIDE RECORDS SUMMARY | 2025-01-11 15:37 | XMS_ITS | Clinical Summary ---
Author Organization [facility] Address [address] [place] [address] Care Team Providers Care Experimental Mechanic Name Role Phone MarcieradhajosedelilahRaymon NP Primary Care Provider [phone] Source Comments PLEASE NOTE, if this patient [...] by DE XA scan 03/18/2017 Overview (03/18/2017): [place] in 2016- spine- osteopenia, left femoral neck- [...] Plan of Treatment Not on file Insurance [place] MEDICAID Care Teams Experimental Mechanic Relationship Specialty Start Date End Date Raymon Reece NP [address] [place] [phone] PCP - General 09/01/18
--- OUTSIDE RECORDS SUMMARY | 2025-01-11 15:37 | XMS_ITS | Clinical Summary ---
Author Organization [facility] Address [address] [place] [address] Phone Care Team Providers Care Autistic Teacher Name Role Phone Tamra Perez MD Primary Care Provider [phone] Allergies Active Allergy Reactions Criticality Noted Date [...] - 12/16/2024 2:16 PM EST Emergency [facility] Emergency [address] [place] [address] Anxiety (Primary Dx); Mild cocaine [...] seeking behavior and broken pain contract w/ [facility] for low back pain Family History [...] GEMUSE QTc 444 ms GEMUSE P Wave [place] 63 degrees GEMUSE R [place] -10 degrees GEMUSE T [place] 54 degrees GEMUSE ECG Interpretation Normal sinus [...] Negative LAB CHEMISTRY METHOD 5 8:54 AM [facility] Comment:Certain OTC medicati ons containing ephedrine, phenylephrine, pseudoephedrine and phenylpropanolamine can cause false positive results. Barbiturate Screen, Ur Negative Negative LAB CHEMISTRY METHOD 5 8:54 AM [facility] Benzodiazepine Screen, Ur Negative Negative LAB CHEMISTRY METHOD 5 8:54 AM [facility] Cocaine Screen, Ur Positive(A ) Negative LAB CHEMISTRY METHOD 5 8:54 AM [facility] Opiate Screen, Ur Negative Negative LAB CHEMISTRY METHOD 5 8:54 AM [facility] Cannabinoid (THC) Screen, Ur Negative Negative LAB CHEMISTRY METHOD 5 8:54 AM [facility] Comment:Specimens from patie nts taking pantoprazole sodium (Protonix) have been shown to produce false positive results. Oxycodone Screen, Ur Negative Negative LAB CHEMISTRY METHOD 5 8:54 AM [facility] Fentanyl, Ur Negative Negative LAB CHEMISTRY METHOD 5 8:54 AM [facility] Urine Urine specimen obtained by clean catch procedure / Unknown Non-blood Collection / Unknown 12/16/2024 8:08 AM EST 12/16/2024 8:30 AM EST [facility]ative [facility] - 12/16/2024 8:54 AM EST [...] URINE ORDERABLES Final Result Performing Organization Address [facility] de Phone Number [facility] [address] [place] [address], * Buprenorphine screen, urine (12/16/2024 8:08 AM EST) [facility] Buprenorphine Screen Urine Negative Negative LAB CHEMISTRY METHOD 12/16/2024 8:54 AM EST [facility] Urine Urine specimen obtained by clean catch procedure / Unknown Non-blood Collection / Unknown 12/16/2024 8:08 AM EST 12/16/2024 8:30 AM EST Narrative [facility] - 12/16/2024 8:54 AM EST Assay cutoff 5 ng/mL Semi-quantitative assay for screening purposes only. Unconfirmed screening result should not be used for non-medical purposes. *ALTERNATE METHOD CONFIRMATION DONE UPON REQUEST ONLY* Gab Santos MD LAB URINE ORDERABLES Final Result Performing Organization Address [facility]/ZIP Co de Phone Number [facility] [address] [place] [address], * Methadone, urine (12/16/2024 8:08 AM EST) [facility] Methadone Screen, Urine Negative Negative LAB CHEMISTRY METHOD 12/16/2024 8:54 AM [facility] Comment: Assay cutoff 300 [...] URINE ORDERABLES Final Result Performing Organization Address [facility]/ZIP Co de Phone Number [facility] [address] [place] [address], [place] [phone] * (ABNORMAL) CBC auto differential (12/16/2024 8:08 AM EST) [facility] WBC 9.7 4.8 - 10.8 K/mcL LAB HEMETOLOGY METHOD 12/16/2024 8:39 AM [facility] RBC 3.90 3.80 - 4.80 M/mcL LAB HEMETOLOGY METHOD 12/16/2024 8:39 AM [facility] Hemoglobin 12.6 11.5 - 16.0 g/dL LAB HEMETOLOGY METHOD 12/16/2024 8:39 AM [facility] Hematocrit 37.9 35.0 - 47.0 % LAB HEMETOLOGY METHOD 12/16/2024 8:39 AM [facility] MCV 96.9 79.0 - 98.0 FL LAB HEMETOLOGY METHOD 12/16/2024 8:39 AM [facility] MCH 32.2(H) 27.0 - 32.0 pcg LAB HEMETOLOGY METHOD 12/16/2024 8:39 AM [facility] MCHC 33.2 32.0 - 37.0 g/dL LAB HEMETOLOGY METHOD 12/16/2024 8:39 AM [facility] RDW 12.5 11.0 - 15.0 % LAB HEMETOLOGY METHOD 12/16/2024 8:39 AM [facility] Platelets 221 130 - 400 K/mcL LAB HEMETOLOGY METHOD 12/16/2024 8:39 AM [facility] MPV 9.1 7.0 - 11.0 FL LAB HEMETOLOGY METHOD 12/16/2024 8:39 AM [facility] NRBC 0.0 <1.0 % LAB HEMETOLOGY METHOD 12/16/2024 8:39 AM [facility] NRBC Absolute 0.00 <0.10 K/mcL LAB HEMETOLOGY METHOD 12/16/2024 8:39 AM [facility] Neutrophils Relative 59.3 % LAB HEMETOLOGY METHOD 12/16/2024 8:39 AM [facility] Lymphocytes Relative 31.7 % LAB HEMETOLOGY METHOD 12/16/2024 8:39 AM [facility] Monocytes Relative 7.2 % LAB HEMETOLOGY METHOD 12/16/2024 8:39 AM [facility] Eosinophils Relative 0.9 % LAB HEMETOLOGY METHOD 12/16/2024 8:39 AM [facility] Basophils Relative 0.6 % LAB HEMETOLOGY METHOD 12/16/2024 8:39 AM [facility] Immature Granulocytes Relative 0.3 % LAB HEMETOLOGY METHOD 12/16/2024 8:39 AM [facility] Neutrophils Absolute 5.72 1.50 - 7.00 K/mcL LAB HEMETOLOGY METHOD 12/16/2024 8:39 AM EST [facility] Lymphocytes Absolute 3.06 1.00 - 5.00 K/[facility] LAB HEMETOLOGY METHOD 12/16/2024 8:39 AM [facility] Monocytes Absolute 0.70 0.20 - 1.00 K/[facility] LAB HEMETOLOGY METHOD 12/16/2024 8:39 AM EST [facility] Eosinophils Absolute 0.09 0.00 - 0.50 K/[facility] LAB HEMETOLOGY METHOD 12/16/2024 8:39 AM EST [facility] Basophils Absolute 0.06 0.00 - 0.20 K/[facility] LAB HEMETOLOGY METHOD 12/16/2024 8:39 AM [facility] Immature Granulocytes Absolute 0.03 0.00 - 0.03 K/[facility] HEMETOLOGY METHOD 12/16/2024 8:39 AM [facility] Blood Venous blood specimen / Unknown Venipuncture / Unknown 12/16/2024 8:08 AM EST 12/16/2024 8:30 AM EST Gab Santos MD LAB BLOOD ORDERABLES Final Result [facility] [address] [place] [address], * Phencyclidine, urine (12/16/2024 8:08 AM EST) PCP Scrn, Ur Negative Negative LAB CHEMISTRY METHOD 12/16/2024 8:54 AM EST [facility] Comment: Assay cutoff 25 ng/mL Semi-quantitative assay for screening purposes only. Unconfirmed screening result should not be used for non-medical purposes. *ALTERNATE METHOD CONFIRMATION DONE UPON REQUEST ONLY* Urine Urine specimen obtained by clean catch procedure / Unknown Non-blood Collection / Unknown 12/16/2024 8:08 AM EST 12/16/2024 8:30 AM EST Gab Santos MD LAB URINE ORDERABLES Final Result Performing Organization Address [facility] Co de Phone Number [facility] [address] [place] [address], [place] [phone] * Thyroid stimulating hormone (TSH) (12/16/2024 8:08 AM EST) TSH 0.93 0.40 - 4.00 mcIU/mL LAB CHEMISTRY METHOD 12/16/2024 9:32 AM EST [facility] Blood Venous blood specimen / Unknown Venipuncture / Unknown 12/16/2024 8:08 AM EST 12/16/2024 8:30 AM EST [facility] LAB BLOOD ORDERABLES Fin al Result Performing Organization Address [facility] de Phone Number [facility] [address] [place] [address], [place] [phone] * T4, free (12/16/2024 8:08 AM EST) Free T4 1.28 0.70 - 1.80 ng/dL LAB CHEMISTRY METHOD 12/16/2024 9:32 AM EST [facility] Blood Venous blood specimen / Unknown Venipuncture / Unknown 12/16/2024 8:08 AM EST 12/16/2024 8:30 AM EST [facility] LAB BLOOD ORDERABLES Fin al Result Performing Organization Address [facility] Co de Phone Number [facility] [address] [place] [address], [place] [phone] * Ethanol (12/16/2024 8:08 AM EST) Ethanol Level <3 0 - 10 mg/dL LAB CHEMISTRY METHOD 12/16/2024 8:59 AM EST [facility] Blood Venous blood specimen / Unknown Venipuncture / Unknown 12/16/2024 8:08 AM EST 12/16/2024 8:30 AM EST Gab Santos MD LAB BLOOD ORDERABLES Final Result Performing Organization Address [facility]/ZIP Co de Phone Number [facility] [address] [place] [address], [place] [phone] * (ABNORMAL) Acetaminophen level (12/16/2024 8:08 AM EST) Acetaminophen Level <2.0(L) 10.0 - 30.0 mcg/mL LAB CHEMISTRY METHOD 12/16/2024 9:02 AM EST [facility] Blood Venous blood specimen / Unknown Venipuncture / Unknown 12/16/2024 8:08 AM EST 12/16/2024 8:30 AM EST Gab Santos MD LAB BLOOD ORDERABLES Final Result Performing Organization Address [facility] de Phone Number [facility] [address] [place] [address], [place] [phone] * Salicylate level (12/16/2024 8:08 AM EST) Salicylate Level 3.9 2.0 - 29.0 mg/dL LAB CHEMISTRY METHOD 12/16/2024 8:59 AM EST [facility] Blood Venous blood specimen / Unknown Venipuncture / Unknown 12/16/2024 8:08 AM EST 12/16/2024 8:30 AM EST Gab Santos MD LAB BLOOD ORDERABLES Final Result Performing Organization Address City/[facility]/ZIP Co de Phone Number [facility] [address] [place] [address], [place] [phone] * (ABNORMAL) Comprehensive metabolic panel (12/16/2024 8:08 AM EST) Sodium 137 133 - 145 mmol/L LAB CHEMISTRY METHOD 12/16/2024 8:59 AM [facility] Potassium 4.5 3.5 - 5.5 mmol/L LAB CHEMISTRY METHOD 12/16/2024 8:59 AM [facility] Chloride 107 96 - 110 mmol/L LAB CHEMISTRY METHOD 12/16/2024 8:59 AM [facility] CO2 21 21 - 32 mmol/L LAB CHEMISTRY METHOD 12/16/2024 8:59 AM [facility] Anion Gap 9 3 - 11 LAB CHEMISTRY METHOD 12/16/2024 8:59 AM [facility] Glucose 200(H) 70 - 100 mg/dL LAB CHEMISTRY METHOD 12/16/2024 8:59 AM [facility] BUN 19 5 - 25 mg/dL LAB CHEMISTRY METHOD 12/16/2024 8:59 AM [facility] Creatinine 1.37(H) 0.50 - 1.10 mg/dL LAB CHEMISTRY METHOD 12/16/2024 8:59 AM [facility] eGFR 42(L) >=60 mL/min/1. 73m2 LAB CHEMISTRY METHOD 12/16/2024 8:59 AM [facility] Comment:Calculation based on the??Chronic Kidney Disease Epidemiology Collaboration (CKD-EPI) equation refit??without adjustment for race. BUN/Creatinine Ratio 13.9 LAB CHEMISTRY METHOD 12/16/2024 8:59 AM [facility] Calcium 8.9 8.5 - 10.5 mg/dL LAB CHEMISTRY METHOD 12/16/2024 8:59 AM [facility] AST (SGOT) 16 10 - 42 unit/L LAB CHEMISTRY METHOD 12/16/2024 8:59 AM [facility] ALT (SGPT) 17 10 - 60 unit/L LAB CHEMISTRY METHOD 12/16/2024 8:59 AM EST [facility] Alkaline Phosphatase 114 42 - 121 unit/L LAB CHEMISTRY METHOD 12/16/2024 8:59 AM EST [facility] Total Protein 7.9 6.0 - 8.0 g/dL LAB CHEMISTRY METHOD 12/16/2024 8:59 AM EST [facility] Albumin 3.8 3.2 - 5.0 g/dL LAB CHEMISTRY METHOD 12/16/2024 8:59 AM EST [facility] Total Bilirubin 0.6 0.0 - 1.4 mg/dL LAB CHEMISTRY METHOD 12/16/2024 8:59 AM EST [facility] Blood Venous blood specimen / Unknown Venipuncture / Unknown 12/16/2024 8:08 AM EST 12/16/2024 8:30 AM EST us Gab Santos MD LAB BLOOD ORDERABLES Final Result [facility] [address] [place] [address], * CT LUNG SCREENING LOW DOSE (07/13/2024 11:31 AM EDT) Anatomical Region Laterality Modality Computed Tomogra phy 07/12/2024 1:53 PM EDT Narrative 07/13/2024 11:31 AM EDT [facility] Diagnostic Imaging Department [address] [place] [address] Patient: ??HILDA GARCIA E ?/Age/Sex: 1955 - 69 - F Unit#: ??[id number] ? Location/Status: ??SPDICATLS/REG CLI ? Mnemonic/Ordering Site: ??CTLUNGLD/SPCT Ordering Physician: ??KRYSTYNA RBITO MD CT Lung Screening Low Dose - [...] Procedure Note Kathy Santoyo MD - 08/09/2024 [facility] Diagnostic Imaging Department [address] [place] [id number] Patient: HILDA GARCIA Maurice /Age/Sex: 1955 - 69 - F Unit#: [id number] Location/Status: [facility] CLI Mnemonic/Ordering Site: [facility] Ordering Physician: KRYSTYNA BRITO MD CT Lung [...] Subscriber Plan / Payer (Ef fective 2019-Present) Name:Hilad Garcia Relation to Subscriber:Self Name:Hilda Garcia Payer ID:[id number] Group ID:[id number] Type:Not on file Address: [facility] [address] [address] Care Teams Autistic Teacher Relationship Specialty Start Date End Date Tamra Perez MD [address] [place] [address] , [facility] [address] [facility] Physician Associ D/B/A: [facility] [place], [place] PCP - General Internal Medicine 02/21/19
--- OUTSIDE RECORDS SUMMARY | 2025-01-11 15:37 | XMS_ITS | Encounter Summary ---
Author Organization [facility] Address [address] [place] [address] Care Team Providers Care Assistant Professor In Family Studies Name Role Phone Tamra Perez MD Primary Care Provider [phone] Reason for Visit * Reason Comments Suicidal Encounter Details Date Type Department Care Team (Late st Contact Info) Description 12/16/2024 7:56 AM EST - 12/16/2024 2:16 PM EST Emergency [facility] Emergency [address] [place] [id number] Anxiety (Primary Dx); Mild cocaine use disorder [...] Care Everywhere. * Anxiety: Treatment Options: Video (New Zealander) documented in this encounter Medications at Time [...] - 12/16/2024 7:41 AM EST [facility] with depression and anxiety since [...] drug seeking behavior and brokenpain contract w/ [facility] for low back pain Depression 03/23/2019 DX:Depression; [...] Procedure Abnormality Status --------- ------ CBC auto differential[[id number]] Abnormal Final result Please view results for [...] Patient is well-appearing, nontoxic, no acute distress. Pashto-speaking, calm and cooperative but reports significant anxiety. [...] this encounter Consult Notes * Racheal Camejo, PACKAGE WRAPPER - 12/16/2024 11:25 AM ESTAssociated Order(s): IP CONSULT TO BLOCKMAN Images from the original note were not included. Behavioral Health Services - Crisis Assessment Important times Time of arrival: 12/16/24 0735 Time of referral: 12/16/24 1046 Time of readiness: 12/16/24 1046 Time assessment started: 12/16/24 1050 Time of disposition: 12/16/24 1150 Location: [facility] ER Consulted case with: ANKITA Almazan Reason for Consultation / Presenting Problem: Hilda Garcia is being seen today for a consultive service at the request of No att. providers found to assess risk and identify appropriate level of care. Patient is being assessed by Behavioral Health using an paraprofessional interpreter due to suicidal ideation. 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 Patient was referred to [facility] for social support and given resources for N WellBeing. Recommendations were discussed with requesting provider. It was a pleasure to assist Hilda Garcia here at [facility]. This report is written and finalized by: Racheal Camejo LCSW Behavioral Health Specialist [facility] (Tel): [phone] / : [phone] documented in this encounter Plan of Treatment [...] GEMUSE QTc 444 ms GEMUSE P Wave [place] 63 degrees GEMUSE R [place] -10 degrees GEMUSE T [place] 54 degrees GEMUSE ECG Interpretation Normal sinus [...] LAB CHEMISTRY METHOD 12/16/2024 9:32 AM EST [facility] Blood Venous blood specimen / Unknown Venipuncture / Unknown 12/16/2024 8:08 AM EST 12/16/2024 8:30 AM EST Honey CORRAL LAB BLOOD ORDERABLES Fin al Result Performing Organization Address City/[facility]/ZIP Co de Phone Number [facility] [address] [place] [address], [place] [phone] * Thyroid stimulating hormone (TSH) (12/16/2024 8:08 AM EST) TSH 0.93 0.40 - 4.00 mcIU/mL LAB CHEMISTRY METHOD 12/16/2024 9:32 AM [facility] Blood Venous blood specimen / Unknown Venipuncture / Unknown 12/16/2024 8:08 AM EST 12/16/2024 8:30 AM EST Honey CORRAL LAB BLOOD ORDERABLES Fin al Result [facility] [address] [place] [address], * (ABNORMAL) CBC auto differential (12/16/2024 8:08 AM EST) [facility] WBC 9.7 4.8 - 10.8 K/mcL LAB HEMETOLOGY METHOD 12/16/2024 8:39 AM [facility] RBC 3.90 3.80 - 4.80 M/[facility] LAB HEMETOLOGY METHOD 12/16/2024 8:39 AM [facility] Hemoglobin 12.6 11.5 - 16.0 g/dL LAB HEMETOLOGY METHOD 12/16/2024 8:39 AM [facility] Hematocrit 37.9 35.0 - 47.0 % LAB HEMETOLOGY METHOD 12/16/2024 8:39 AM [facility] MCV 96.9 79.0 - 98.0 FL LAB HEMETOLOGY METHOD 12/16/2024 8:39 AM [facility] MCH 32.2(H) 27.0 - 32.0 pcg LAB HEMETOLOGY METHOD 12/16/2024 8:39 AM [facility] MCHC 33.2 32.0 - 37.0 g/dL LAB HEMETOLOGY METHOD 12/16/2024 8:39 AM [facility] RDW 12.5 11.0 - 15.0 % LAB HEMETOLOGY METHOD 12/16/2024 8:39 AM [facility] Platelets 221 130 - 400 K/mcL LAB HEMETOLOGY METHOD 12/16/2024 8:39 AM [facility] MPV 9.1 7.0 - 11.0 FL LAB HEMETOLOGY METHOD 12/16/2024 8:39 AM [facility] NRBC 0.0 <1.0 % LAB HEMETOLOGY METHOD 12/16/2024 8:39 AM [facility] NRBC Absolute 0.00 <0.10 K/mcL LAB HEMETOLOGY METHOD 12/16/2024 8:39 AM [facility] Neutrophils Relative 59.3 % LAB HEMETOLOGY METHOD 12/16/2024 8:39 AM [facility] Lymphocytes Relative 31.7 % LAB HEMETOLOGY METHOD 12/16/2024 8:39 AM [facility] Monocytes Relative 7.2 % LAB HEMETOLOGY METHOD 12/16/2024 8:39 AM [facility] Eosinophils Relative 0.9 % LAB HEMETOLOGY METHOD 12/16/2024 8:39 AM [facility] Basophils Relative 0.6 % LAB HEMETOLOGY METHOD 12/16/2024 8:39 AM [facility] Immature Granulocytes Relative 0.3 % LAB HEMETOLOGY METHOD 12/16/2024 8:39 AM [facility] Neutrophils Absolute 5.72 1.50 - 7.00 K/mcL LAB HEMETOLOGY METHOD 12/16/2024 8:39 AM [facility] Lymphocytes Absolute 3.06 1.00 - 5.00 K/mcL LAB HEMETOLOGY METHOD 12/16/2024 8:39 AM [facility] Monocytes Absolute 0.70 0.20 - 1.00 K/mcL LAB HEMETOLOGY METHOD 12/16/2024 8:39 AM EST [facility] Eosinophils Absolute 0.09 0.00 - 0.50 K/mcL LAB HEMETOLOGY METHOD 12/16/2024 8:39 AM EST [facility] Basophils Absolute 0.06 0.00 - 0.20 K/mcL LAB HEMETOLOGY METHOD 12/16/2024 8:39 AM EST [facility] Immature Granulocytes Absolute 0.03 0.00 - 0.03 K/mcL LAB HEMETOLOGY METHOD 12/16/2024 8:39 AM EST [facility] Blood Venous blood specimen / Unknown Venipuncture / Unknown 12/16/2024 8:08 AM EST 12/16/2024 8:30 AM EST Gab Santos MD LAB BLOOD ORDERABLES Final Result Performing Organization Address City/[facility]/ZIP Co de Phone Number [facility] [address] [place] [address], [place] [phone] * Methadone, urine (12/16/2024 8:08 AM EST) [facility] Methadone Screen, Urine Negative Negative LAB CHEMISTRY METHOD 12/16/2024 8:54 AM EST [facility] Comment: Assay cutoff 300 ng/mL Semi-quantitative assay for screening purposes only. Unconfirmed screening result should not be used for non-medical purposes. *ALTERNATE METHOD CONFIRMATION DONE UPON REQUEST ONLY* Urine Urine specimen obtained by clean catch procedure / Unknown Non-blood Collection / Unknown 12/16/2024 8:08 AM EST 12/16/2024 8:30 AM EST Gab Santos MD LAB URINE ORDERABLES Final Result Performing Organization Address City/[facility]/ZIP Co de Phone Number [facility] [address] [place] [address], [place] [phone] * Phencyclidine, urine (12/16/2024 8:08 AM EST) PCP Scrn, Ur Negative Negative LAB CHEMISTRY METHOD 12/16/2024 8:54 AM EST [facility] Comment: Assay cutoff 25 ng/mL Semi-quantitative assay for screening purposes only. Unconfirmed screening result should not be used for non-medical purposes. *ALTERNATE METHOD CONFIRMATION DONE UPON REQUEST ONLY* Urine Urine specimen obtained by clean catch procedure / Unknown Non-blood Collection / Unknown 12/16/2024 8:08 AM EST 12/16/2024 8:30 AM EST Gab Santos MD LAB URINE ORDERABLES Final Result Performing Organization Address [facility] Co de Phone Number [facility] [address] [place] [address], * Buprenorphine screen, urine (12/16/2024 8:08 AM EST) [facility] Buprenorphine Screen Urine Negative Negative LAB CHEMISTRY METHOD 12/16/2024 8:54 AM EST [facility] Urine Urine specimen obtained by clean catch procedure / Unknown Non-blood Collection / Unknown 12/16/2024 8:08 AM EST 12/16/2024 8:30 AM EST Narrative [facility] - 12/16/2024 8:54 AM EST Assay cutoff 5 ng/mL Semi-quantitative assay for screening purposes only. Unconfirmed screening result should not be used for non-medical purposes. *ALTERNATE METHOD CONFIRMATION DONE UPON REQUEST ONLY* Gab Santos MD LAB URINE ORDERABLES Final Result Performing Organization Address City/[facility]/ZIP Co de Phone Number [facility] [address] [place] [address], [place] [phone] * (ABNORMAL) Drug abuse screen 8a panel, urine (12/16/2024 8:08 AM EST) Amphetamine Screen, Ur Negative Negative LAB CHEMISTRY METHOD 5 8:54 AM [facility] Comment:Certain OTC medicati ons containing ephedrine, phenylephrine, pseudoephedrine and phenylpropanolamine can cause false positive results. Barbiturate Screen, Ur Negative Negative LAB CHEMISTRY METHOD 5 8:54 AM [facility] Benzodiazepine Screen, Ur Negative Negative LAB CHEMISTRY METHOD 5 8:54 AM [facility] Cocaine Screen, Ur Positive(A ) Negative LAB CHEMISTRY METHOD 5 8:54 AM [facility] Opiate Screen, Ur Negative Negative LAB CHEMISTRY METHOD 5 8:54 AM [facility] Cannabinoid (THC) Screen, Ur Negative Negative LAB CHEMISTRY METHOD 5 8:54 AM [facility] Comment:Specimens from patie nts taking pantoprazole sodium (Protonix) have been shown to produce false positive results. Oxycodone Screen, Ur Negative Negative LAB CHEMISTRY METHOD 5 8:54 AM [facility] Fentanyl, Ur Negative Negative LAB CHEMISTRY METHOD 5 8:54 AM [facility] Urine Urine specimen obtained by clean catch procedure / Unknown Non-blood Collection / Unknown 12/16/2024 8:08 AM EST 12/16/2024 8:30 AM EST [facility] - 12/16/2024 8:54 AM EST [...] URINE ORDERABLES Final Result Performing Organization Address [facility] Co de Phone Number [facility] [address] [place] [address], [place] [phone] * Salicylate level (12/16/2024 8:08 AM EST) Salicylate Level 3.9 2.0 - 29.0 mg/dL LAB CHEMISTRY METHOD 12/16/2024 8:59 AM EST [facility] Blood Venous blood specimen / Unknown Venipuncture / Unknown 12/16/2024 8:08 AM EST 12/16/2024 8:30 AM EST Gab Santos MD LAB BLOOD ORDERABLES Final Result Performing Organization Address [facility] Co de Phone Number [facility] [address] [place] [address], [place] [phone] * (ABNORMAL) Acetaminophen level (12/16/2024 8:08 AM EST) Pathologist [facility] Acetaminophen Level <2.0(L) 10.0 - 30.0 mcg/mL LAB CHEMISTRY METHOD 12/16/2024 9:02 AM EST [facility] Blood Venous blood specimen / Unknown Venipuncture / Unknown 12/16/2024 8:08 AM EST 12/16/2024 8:30 AM EST us Gab Santos MD LAB BLOOD ORDERABLES Final Result Performing Organization Address [facility]/ZIP Co de Phone Number [facility] [address] [place] [address], [place] [phone] * Ethanol (12/16/2024 8:08 AM EST) Ethanol Level <3 0 - 10 mg/dL LAB CHEMISTRY METHOD 12/16/2024 8:59 AM [facility] Blood Venous blood specimen / Unknown Venipuncture / Unknown 12/16/2024 8:08 AM EST 12/16/2024 8:30 AM EST Gab Santos MD LAB BLOOD ORDERABLES Final Result [facility] [address] [place] [address], * (ABNORMAL) Comprehensive metabolic panel (12/16/2024 8:08 AM EST) [facility] Sodium 137 133 - 145 mmol/L LAB CHEMISTRY METHOD 12/16/2024 8:59 AM [facility] Potassium 4.5 3.5 - 5.5 mmol/L LAB CHEMISTRY METHOD 12/16/2024 8:59 AM [facility] Chloride 107 96 - 110 mmol/L LAB CHEMISTRY METHOD 12/16/2024 8:59 AM [facility] CO2 21 21 - 32 mmol/L LAB CHEMISTRY METHOD 12/16/2024 8:59 AM [facility] Anion Gap 9 3 - 11 LAB CHEMISTRY METHOD 12/16/2024 8:59 AM [facility] Glucose 200(H) 70 - 100 mg/dL LAB CHEMISTRY METHOD 12/16/2024 8:59 AM [facility] BUN 19 5 - 25 mg/dL LAB CHEMISTRY METHOD 12/16/2024 8:59 AM [facility] Creatinine 1.37(H) 0.50 - 1.10 mg/dL LAB CHEMISTRY METHOD 12/16/2024 8:59 AM [facility] eGFR 42(L) >=60 mL/min/1. 73m2 LAB CHEMISTRY METHOD 12/16/2024 8:59 AM EST [facility] Comment:Calculation based on the??Chronic Kidney Disease Epidemiology Collaboration (CKD-EPI) equation refit??without adjustment for race. BUN/Creatinine Ratio 13.9 LAB CHEMISTRY METHOD 12/16/2024 8:59 AM [facility] Calcium 8.9 8.5 - 10.5 mg/dL LAB CHEMISTRY METHOD 12/16/2024 8:59 AM [facility] AST (SGOT) 16 10 - 42 unit/L LAB CHEMISTRY METHOD 12/16/2024 8:59 AM [facility] ALT (SGPT) 17 10 - 60 unit/L LAB CHEMISTRY METHOD 12/16/2024 8:59 AM [facility] Alkaline Phosphatase 114 42 - 121 unit/L LAB CHEMISTRY METHOD 12/16/2024 8:59 AM [facility] Total Protein 7.9 6.0 - 8.0 g/dL LAB CHEMISTRY METHOD 12/16/2024 8:59 AM [facility] Albumin 3.8 3.2 - 5.0 g/dL LAB CHEMISTRY METHOD 12/16/2024 8:59 AM [facility] Total Bilirubin 0.6 0.0 - 1.4 mg/dL LAB CHEMISTRY METHOD 12/16/2024 8:59 AM [facility] Blood Venous blood specimen / Unknown Venipuncture / Unknown 12/16/2024 8:08 AM EST 12/16/2024 8:30 AM EST us Gab Santos MD LAB BLOOD ORDERABLES Final Result [facility] [address] [place] [address], documented in this encounter Visit Diagnoses Diagnosis Anxiety- Primary Anxiety state, unspecified Anxiety Anxiety state, unspecified Mild cocaine use disorder documented in this encounter Administered Medications Inactive [...] LORazepam (ATIVAN) tablet 0.5 mg 1 12/16/19 25 Consult Count Last Ordered Date First Orde red Date IP CONSULT TO BLOCKMAN 1 12/16/2024 documented in this encounter Care Teams Assistant Professor In Family Studies Relationship Specialty Start Date End Date Tamra Perez MD [address] [facility] , [address] [facility] RALPH Bose PCP - General Internal Medicine 02/21/19 documented as of this encounter
== END 2025-01-11 13:39 | disposition home or self-care (01) ==
LOC: HO.HMCH 13:07
PROVIDERS: PCP Internal Medicine; Visit Provider Internal Medicine
DX: E11.9 Type 2 diabetes mellitus without complications (principal); Z79.4 Long term (current) use of insulin; F32.0 Major depressive disorder, single episode, mild; F11.20 Opioid dependence, uncomplicated; I10 Essential (primary) hypertension; E78.5 Hyperlipidemia, unspecified; J44.9 Chronic obstructive pulmonary disease, unspecified

== ENCOUNTER → 2025-01-11 13:07 | Outpatient (BNVA) | payer OTHER, SELFPAY | PROVIDERS: PCP Internal Medicine; Visit Provider Internal Medicine | DX: E11.9 Type 2 diabetes mellitus without complications (principal); Z79.4 Long term (current) use of insulin; F32.0 Major depressive disorder, single episode, mild; F11.20 Opioid dependence, uncomplicated; E78.5 Hyperlipidemia, unspecified; I10 Essential (primary) hypertension; J44.9 Chronic obstructive pulmonary disease, unspecified | CPT/HCPCS: 83036; 96127; 99212 ==

== ENCOUNTER 2025-01-29 14:11 | Outpatient (AMB) | payer OTHER, SELFPAY ==
--- NOTE | 2025-01-29 14:16 | MHC.OFFVIS ---
Vital Signs 01/29/25 14:18 Height 5 ft Weight 171 lb 15.369 oz BMI 33.6 BP 180/84 H Blood Pressure Location Rt brachial Position Sitting Pulse 80 Pulse Source Pulse Oximeter Pulse Oximetry (%) 90 L Oxygen Delivery Method Room Air Intake Visit Reasons: COPD Allergies aspirin Allergy (Intermediate, Verified 01/11/25 13:30) swelling, pruritus fentanyl Allergy (Intermediate, Verified 01/11/25 13:30) rash tramadol Allergy (Intermediate, Verified 01/11/25 13:30) nausea varenicline [From Chantix] Allergy (Intermediate, Verified 01/11/25 13:30) anxiety HPI Comments Details: The patient is a 69-year-old woman current smoker with a known history of COPD presenting with worsening respiratory symptoms. She does complaint of a cough that is productive in nature and moderate severity. Also complains of shortness of breath with activity. Qtvb-to-yidssnhy severity. Unfortunately, she has been struggling to quit smoking. she was able to quit with the Nicotrol inhaler. Sleep. However, then her provider engagement executive left and she was not able to fill it. I will recent her prescription to the pharmacy disease surgery she can still use it. The patient also was taking part of the lung cancer screening program back in 2019. Again, once her physician left she was lost to follow-up. Will go ahead and restart closure here for her to start the lung cancer screening program. 07/14/2022 the patient is here for a pulmonary follow-up visit. Overall she is doing better. She was able to quit smoking with the Nicotrol inhaler. However once the Nicotrol ran out she became very depressed. Therefore she had to go back to smoking. She is agreeable to starting Wellbutrin with the hope that it decreases her withdrawal symptoms. She will start with 75 mg twice a day then increase to 150 mg twice a day as tolerated. The patient still complains of a cough. Productive in nature. Will go ahead and send her Z-Hamzah to try to alleviate more symptoms. Respiratory therapy is helpful. We did get appeared that upper last CT scan of the chest to the lung cancer screening program that was back in September 2021. Therefore she cannot have a CT scan so September this year. Will refer her to the lung cancer screening program close to do that today. She already may be active with program and she does get a call from [employer] as well. 10/12/2022 the patient is here for a pulmonary follow-up visit. The patient has been doing well. She has been tolerating the Wellbutrin. She is trying to quit the smoker. Although this is still struggle for her. She does continue to use her respiratory therapy with good effect. She had been going to the [facility] lung cancer screening program. However we going to go ahead and start blisters here. She is scheduled to have a repeat CT scan in October 2022. the patient was supposed to undergo pulmonary function studies but will go ahead and reschedule him for the next visit. She continues to have dyspnea on exertion mild in severity. Also has a chronic cough. the symptoms have improved while on the Advair HFA inhaler. She has not had to use her rescue inhaler. She has not required any prednisone. 01/29/2025 the patient is here for a pulmonary follow-up visit. She has not been seen a few years. The patient states that the Advair dose been working well for her. She does use it as prescribed. She does not have a rescue inhaler. I will make sure to send her 1. In the meantime she does complaint of lower extremity edema. She has been noticing worsening edema now for sometime. She does try to elevate the legs but she has a hard time doing so. She has significant pitting edema up to the knees. Recently she was having some difficulty with the lungs where she was having some discomfort expanding her lungs. Then her symptoms did subside. I wondering if that could be related to some paroxysmal nocturnal dyspnea. Will go ahead and give her some diuretics for couple days. Her kidney function is fair. She also has a very high elevated blood pressure today. She lisinopril. Looks like he was sent but has not been received by the patient as of yet. I did reach out to her primary care to let her know. In the meantime I did send a 2 days of diuretics. Will do too much but at least it will help hopefully decrease some of the volume and therefore the pressure and hopefully decrease some of the lower extremity edema. I do believe an echocardiogram will be important in view of her underlying pulmonary situation as far as developing some cor pulmonale and pulmonary hypertension. Also to note she does participating in the lung cancer screening program. Her last CT scan was over the summer 2023. The rods due with underlying emphysema and also pulmonary nodules. Will follow-up with a CAT scan then. The patient also will have an echocardiogram prior to the next visit. [facility] Medical History (Updated 01/29/25 @ 22:15 by Dwight Washington MD) Lower extremity edema Nicotine dependence, cigarettes, uncomplicated Type 2 diabetes mellitus COPD (chronic obstructive pulmonary disease) Chondrocalcinosis of right knee Osteoarthritis of right knee Hypovitaminosis D Opioid dependence Essential hypertension Lumbar degenerative disc disease Surgical History History of cataract surgery History of colonoscopy History of cholecystectomy (~1998) History of total abdominal hysterectomy and bilateral salpingo-oophorectomy (~1993) History of section History of lumbar discectomy (~2009) Family History Father CHF (congestive heart failure) CVD (cardiovascular disease) Mother Medical history unknown Family/Other FH: mental illness Son No problems noted. Social History Housing: Apartment Alcohol intake: never Patient Tobacco Use Status: Current everyday Tobacco user Tobacco use type: Cigarette Cigarettes Per Day: 5 Years Smoked: (onset 11yo, 1/2-3/4ppd x 56yrs, 35pyh) e-Cigarette/Vaping Use: Never Used Second Hand Smoke Exposure: No service: No Current occupational status: unemployed Cognitive needs: Yes Hearing needs: No Vision needs: Yes Review of Systems Const Denies fatigue and Denies weight loss Eyes Reports no additional complaints, Denies change in vision and Denies other visual disturbances Card Denies chest pain at rest, Reports leg edema, Reports dyspnea and Reports dyspnea on exertion Resp Denies cough, Reports dyspnea and Reports dyspnea on exertion GI Denies abdominal pain, Denies change in bowel habits, Denies excessive flatus, Denies nausea and Denies vomiting Denies urinary incontinence, Denies urinary hesitancy and Denies urinary urgency Endo Denies fatigue Physical Exam Vital Signs: Last Vital Signs Pulse 80 01/29/25 14:18 BP 180/84 H 01/29/25 14:18 Pulse Ox 90 L 01/29/25 14:18 Oxygen Delivery Method Room Air 01/29/25 14:18 BMI result Body Mass Index 33.6 Const General: comfortable and alert HEENT Head: Yes normal to inspection Eyes General: appearance normal, both eyes and all related structures Neck Neck: Yes normal visual inspection, Yes full ROM and Yes supple Chest Chest palpation & inspection: normal inspection of the chest Resp Effort & Inspection: normal respiratory effort Auscultation: no wheezes and diminished lung sounds Cardio Rate: regular rate Rhythm: regular rhythm Heart sounds: S1 normal heart sound present and S2 normal heart sound present GI Inspection: Yes normal to inspection Skin General skin exam: no rashes or lesions noted Extrem General: No clubbing, No cyanosis and Yes edema Assessment & Plan Assessment & Plan (1) COPD (chronic obstructive pulmonary disease): Code(s): J44.9 - Chronic obstructive pulmonary disease, unspecified Category: Medical Qualifiers: COPD type: chronic bronchitis Chronic bronchitis type: simple Qualified Code(s): J41.0 - Simple chronic bronchitis (2) Smoker: Code(s): F17.200 - Nicotine dependence, unspecified, uncomplicated Category: Medical (3) Pulmonary nodules: Code(s): R91.8 - Other nonspecific abnormal finding of lung field Category: Medical (4) Lower extremity edema: Code(s): R60.0 - Localized edema Category: Medical Plan Short-acting beta agonist as needed Advair HFA continue Wellbutrin will refer to lung cancer screening program lasix x 2 days ECHO r/o cor pulmonale follow-up in 6 months Orders: Orders CA echo transthoracic complete Today I27.20 - Pulmonary hypertension, unspecified Medications: New furosemide (Lasix) 20 mg PO DAILY 2 tabs 0RF 2 days Refilled fluticasone propion-salmeterol 115-21 mcg/actuation (Advair HFA) 2 puffs inhalation Q12H 12 grams 11RF 30 days Coding Level of Care Code Est Pt Level 4 (69190) Complex EM visit Add On G2211 Diagnoses Simple chronic bronchitis J41.0 COPD type: chronic bronchitis Chronic bronchitis type: simple Smoker F17.200 Pulmonary nodules R91.8 Lower extremity edema R60.0 Time Spent (min) 17
[2025-01-29 14:18] VITALS: BP 180/84; PULSE 80; O2SAT 90; BMI 33.6
--- OUTSIDE RECORDS SUMMARY | 2025-01-29 16:58 | XMS_ITS | Encounter Summary ---
Author Organization [facility] Address [address] [place] [address] Care Team Providers Care Associate Professor Of Sociology Name Role Phone Raymon Reece NP Primary Care Provider [phone] Reason for Visit * Reason Comments Encounter Created in Error Encounter Details Date Type Department Care Team (Late st Contact Info) Description 04/14/2017 / Visits [address] [phone] Mihaela Sutherland LICSW [address] [place] [id number] Social History Tobacco Use Types Packs/Day Years [...] Primary documented in this encounter Care Teams Associate Professor Of Sociology Relationship Specialty Start Date End Date Raymon Reece NP [address] [place] [phone] PCP - General 09/01/18 documented as of this encounter
--- OUTSIDE RECORDS SUMMARY | 2025-01-29 16:58 | XMS_ITS | Clinical Summary ---
Author Organization [facility] Facility Address [address] [place] [address], [place] [address] Care Team Providers Care Rivet Hole Machine Operator Name Role Phone Tamra Keenan MD Primary Care Provider [phone] Social History Tobacco Use Types Packs/Day Years [...] Diabetes: Visual Foot Exam 01/15/2020 Influenza Vaccine (Season Ended) 2025 Hepatitis B Vaccine Aged Out No longe r eligible based on patient's age to complete this topic Insurance [facility] [place]AYNA CARCAMO [id number] Care Teams Rivet Hole Machine Operator Relationship Specialty Start Date End Date Tamra Keenan MD [address] [place], [place] PCP - General 08/29/19
--- OUTSIDE RECORDS SUMMARY | 2025-01-29 16:58 | XMS_ITS | Clinical Summary ---
Author Organization [facility] Address [address] [place] [address] Phone Care Team Providers Care Electric Solderer Name Role Phone Tamra Perez MD Primary Care Provider [phone] Allergies Active Allergy Reactions Criticality Noted Date [...] EST - 12/16/2024 2:16 PM EST Emergency [facility] Emergency [address] [place] [address] Anxiety (Primary Dx); Mild cocaine [...] seeking behavior and broken pain contract w/ [facility] for low back pain Family History Medical [...] 02/19/1964 Diabetes: Annual Retina Eye Exam 02/19/1964 Zoster Vaccines (1 of 2) 02/19/2004 RSV Immunization Adult Patients (1 - Risk 60-74 years 1-dose series) [...] on patient's age to complete this topic Hepatitis A Vaccines Aged Out No long er eligible based on patient's age to complete this topic IPV Vaccines Aged Out No longer eligi ble based on patient's age to complete this topic MMR Vaccines Aged Out No longer eligi ble based on patient's age to complete this topic Meningococcal ACWY Vaccine Aged Out N o longer eligible based on patient's age to complete this topic Meningococcal B Vaccine Aged Out No l onger eligible based on patient's age to complete [...] GEMUSE QTc 444 ms GEMUSE P Wave [place] 63 degrees GEMUSE R [place] -10 degrees GEMUSE T [place] 54 degrees GEMUSE ECG Interpretation Normal sinus [...] 8a panel, urine (12/16/2024 8:08 AM EST) Pathologist [facility] Amphetamine Screen, Ur Negative Negative LAB CHEMISTRY METHOD 5 8:[address] [facility] Comment:Certain OTC medicati ons containing ephedrine, phenylephrine, pseudoephedrine and phenylpropanolamine can cause false positive results. Barbiturate Screen, Ur Negative Negative LAB CHEMISTRY METHOD 5 8:[address] [facility] Benzodiazepine Screen, Ur Negative Negative LAB CHEMISTRY METHOD 5 8:[address] [facility] Cocaine Screen, Ur Positive(A ) Negative LAB CHEMISTRY METHOD 5 8:[address] [facility] Opiate Screen, Ur Negative Negative LAB CHEMISTRY METHOD 5 8:[address] [facility] Cannabinoid (THC) Screen, Ur Negative Negative LAB CHEMISTRY METHOD 5 8:[address] [facility] Comment:Specimens from patie nts taking pantoprazole sodium (Protonix) have been shown to produce false positive results. Oxycodone Screen, Ur Negative Negative LAB CHEMISTRY METHOD 5 8:[address] [facility] Fentanyl, Ur Negative Negative LAB CHEMISTRY METHOD 5 8:[address] [facility] Urine Urine specimen obtained by clean catch procedure / Unknown Non-blood Collection / Unknown 12/16/2024 8:08 AM EST 12/16/2024 8:30 AM EST [facility] - 12/16/2024 8:54 AM [...] URINE ORDERABLES Final Result Performing Organization Address [facility] de Phone Number [facility] [address] [place] [address], * Buprenorphine screen, urine (12/16/2024 8:08 AM EST) [facility] Buprenorphine Screen Urine Negative Negative LAB CHEMISTRY METHOD 12/16/2024 8:54 AM EST [facility] Urine Urine specimen obtained by clean catch procedure / Unknown Non-blood Collection / Unknown 12/16/2024 8:08 AM EST 12/16/2024 8:30 AM EST [place] - 12/16/2024 8:54 AM EST Assay cutoff 5 ng/mL Semi-quantitative assay for screening purposes only. Unconfirmed screening result should not be used for non-medical purposes. *ALTERNATE METHOD CONFIRMATION DONE UPON REQUEST ONLY* Gab Santos MD LAB URINE ORDERABLES Final Result Performing Organization Address [facility]/State/ZIP Co de Phone Number [facility] [address] [place] [address], * Methadone, urine (12/16/2024 8:08 AM EST) [facility] Methadone Screen, Urine Negative Negative LAB CHEMISTRY METHOD 12/16/2024 8:54 AM EST [facility] Comment: Assay cutoff 300 ng/mL Semi-quantitative assay for screening purposes only. Unconfirmed screening result should not be used for non-medical purposes. *ALTERNATE METHOD CONFIRMATION DONE UPON REQUEST ONLY* Urine Urine specimen obtained by clean catch procedure / Unknown Non-blood Collection / Unknown 12/16/2024 8:08 AM EST 12/16/2024 8:30 AM EST Gab Santos MD LAB URINE ORDERABLES Final Result [facility] [address] [place] [address], * (ABNORMAL) CBC auto differential (12/16/2024 8:08 AM EST) [facility] WBC 9.7 4.8 - 10.8 K/mcL LAB HEMETOLOGY METHOD 12/16/2024 8:[address] [facility] RBC 3.90 3.80 - 4.80 M/[facility] LAB HEMETOLOGY METHOD 12/16/2024 8:[address] [facility] Hemoglobin 12.6 11.5 - 16.0 g/dL LAB HEMETOLOGY METHOD 12/16/2024 8:[address] [facility] Hematocrit 37.9 35.0 - 47.0 % LAB HEMETOLOGY METHOD 12/16/2024 8:[address] [facility] MCV 96.9 79.0 - 98.0 FL LAB HEMETOLOGY METHOD 12/16/2024 8:[address] [facility] MCH 32.2(H) 27.0 - 32.0 pcg LAB HEMETOLOGY METHOD 12/16/2024 8:[address] [facility] MCHC 33.2 32.0 - 37.0 g/dL LAB HEMETOLOGY METHOD 12/16/2024 8:[address] [facility] RDW 12.5 11.0 - 15.0 % LAB HEMETOLOGY METHOD 12/16/2024 8:[address] [facility] Platelets 221 130 - 400 K/mcL LAB HEMETOLOGY METHOD 12/16/2024 8:[address] [facility] MPV 9.1 7.0 - 11.0 FL LAB HEMETOLOGY METHOD 12/16/2024 8:[address] [facility] NRBC 0.0 <1.0 % LAB HEMETOLOGY METHOD 12/16/2024 8:[address] [facility] NRBC Absolute 0.00 <0.10 K/mcL LAB HEMETOLOGY METHOD 12/16/2024 8:[address] [facility] Neutrophils Relative 59.3 % LAB HEMETOLOGY METHOD 12/16/2024 8:[address] [facility] Lymphocytes Relative 31.7 % LAB HEMETOLOGY METHOD 12/16/2024 8:[address] [facility] Monocytes Relative 7.2 % LAB HEMETOLOGY METHOD 12/16/2024 8:[address] [facility] Eosinophils Relative 0.9 % LAB HEMETOLOGY METHOD 12/16/2024 8:[address] [facility] Basophils Relative 0.6 % LAB HEMETOLOGY METHOD 12/16/2024 8:[address] [facility] Immature Granulocytes Relative 0.3 % LAB HEMETOLOGY METHOD 12/16/2024 8:[address] [facility] Neutrophils Absolute 5.72 1.50 - 7.00 K/mcL LAB HEMETOLOGY METHOD 12/16/2024 8:39 AM EST [facility] Lymphocytes Absolute 3.06 1.00 - 5.00 K/[facility] LAB HEMETOLOGY METHOD 12/16/2024 8:39 AM EST [facility] Monocytes Absolute 0.70 0.20 - 1.00 K/mcL LAB HEMETOLOGY METHOD 12/16/2024 8:39 AM EST [facility] Eosinophils Absolute 0.09 0.00 - 0.50 K/[facility] LAB HEMETOLOGY METHOD 12/16/2024 8:39 AM EST [facility] Basophils Absolute 0.06 0.00 - 0.20 K/[facility] LAB HEMETOLOGY METHOD 12/16/2024 8:[address] [facility] Immature Granulocytes Absolute 0.03 0.00 - 0.03 K/[facility] HEMETOLOGY METHOD 12/16/2024 8:[address] [facility] Blood Venous blood specimen / Unknown Venipuncture / Unknown 12/16/2024 8:08 AM EST 12/16/2024 8:30 AM EST Gab Santos MD LAB BLOOD ORDERABLES Final Result [facility] [address] [place] [address], * Phencyclidine, urine (12/16/2024 8:08 AM EST) PCP Scrn, Ur Negative Negative LAB CHEMISTRY METHOD 12/16/2024 8:54 AM EST [facility] Comment: Assay cutoff 25 [...] URINE ORDERABLES Final Result Performing Organization Address [facility]/ZIP Co de Phone Number [facility] [address] [place] [address], [place] [phone] * Thyroid stimulating hormone (TSH) (12/16/2024 8:08 AM EST) TSH 0.93 0.40 - 4.00 mcIU/mL LAB CHEMISTRY METHOD 12/16/2024 9:32 AM EST [facility] Blood Venous blood specimen / Unknown Venipuncture / Unknown 12/16/2024 8:08 AM EST 12/16/2024 8:[address] [facility] Lv CORRAL LAB BLOOD ORDERABLES Fin al Result Performing Organization Address [facility] de Phone Number [facility] [address] [place] [address], [place] [phone] * T4, free (12/16/2024 8:08 AM EST) Free T4 1.28 0.70 - 1.80 ng/dL LAB CHEMISTRY METHOD 12/16/2024 9:32 AM EST [facility] Blood Venous blood specimen / Unknown Venipuncture / Unknown 12/16/2024 8:08 AM EST 12/16/2024 8:30 AM EST Honey Lv CORRAL LAB BLOOD ORDERABLES Fin al Result Performing Organization Address [facility] Co de Phone Number [facility] [address] [place] [address], * Ethanol (12/16/2024 8:08 AM EST) Ethanol Level <3 0 - 10 mg/dL LAB CHEMISTRY METHOD 12/16/2024 8:59 AM EST [facility] Blood Venous blood specimen / Unknown Venipuncture / Unknown 12/16/2024 8:08 AM EST 12/16/2024 8:30 AM EST Gab Santos MD LAB BLOOD ORDERABLES Final Result Performing Organization Address [facility]/ZIP Co de Phone Number [facility] [address] [place] [address], [place] [phone] * (ABNORMAL) Acetaminophen level (12/16/2024 8:08 AM EST) Acetaminophen Level <2.0(L) 10.0 - 30.0 mcg/mL LAB CHEMISTRY METHOD 12/16/2024 9:02 AM EST [facility] Blood Venous blood specimen / Unknown Venipuncture / Unknown 12/16/2024 8:08 AM EST 12/16/2024 8:30 AM EST Gab Santos MD LAB BLOOD ORDERABLES Final Result Performing Organization Address [facility] Co de Phone Number [facility] [address] [place] [address], [place] [phone] * Salicylate level (12/16/2024 8:08 AM EST) Salicylate Level 3.9 2.0 - 29.0 mg/dL LAB CHEMISTRY METHOD 12/16/2024 8:59 AM EST [facility] Blood Venous blood specimen / Unknown Venipuncture / Unknown 12/16/2024 8:08 AM EST 12/16/2024 8:30 AM EST Gab Santos MD LAB BLOOD ORDERABLES Final Result Performing Organization Address City/[facility]/ZIP Co de Phone Number [facility] [address] [place] [address], [place] [phone] * (ABNORMAL) Comprehensive metabolic panel (12/16/2024 8:08 AM EST) Sodium 137 133 - 145 mmol/L LAB CHEMISTRY METHOD 12/16/2024 8:[address] [facility] Potassium 4.5 3.5 - 5.5 mmol/L LAB CHEMISTRY METHOD 12/16/2024 8:[address] [facility] Chloride 107 96 - 110 mmol/L LAB CHEMISTRY METHOD 12/16/2024 8:[address] [facility] CO2 21 21 - 32 mmol/L LAB CHEMISTRY METHOD 12/16/2024 8:[address] [facility] Anion Gap 9 3 - 11 LAB CHEMISTRY METHOD 12/16/2024 8:[address] [facility] Glucose 200(H) 70 - 100 mg/dL LAB CHEMISTRY METHOD 12/16/2024 8:[address] [facility] BUN 19 5 - 25 mg/dL LAB CHEMISTRY METHOD 12/16/2024 8:[address] [facility] Creatinine 1.37(H) 0.50 - 1.10 mg/dL LAB CHEMISTRY METHOD 12/16/2024 8:[address] [facility] eGFR 42(L) >=60 mL/min/1. 73m2 LAB CHEMISTRY METHOD 12/16/2024 8:[address] [facility] Comment:Calculation based on the??Chronic Kidney Disease Epidemiology Collaboration (CKD-EPI) equation refit??without adjustment for race. BUN/Creatinine Ratio 13.9 LAB CHEMISTRY METHOD 12/16/2024 8:[address] [facility] Calcium 8.9 8.5 - 10.5 mg/dL LAB CHEMISTRY METHOD 12/16/2024 8:[address] [facility] AST (SGOT) 16 10 - 42 unit/L LAB CHEMISTRY METHOD 12/16/2024 8:[address] [facility] ALT (SGPT) 17 10 - 60 unit/L LAB CHEMISTRY METHOD 12/16/2024 8:59 AM EST [facility] Alkaline Phosphatase 114 42 - 121 unit/L LAB CHEMISTRY METHOD 12/16/2024 8:59 AM EST [facility] Total Protein 7.9 6.0 - 8.0 g/dL LAB CHEMISTRY METHOD 12/16/2024 8:59 AM EST [facility] Albumin 3.8 3.2 - 5.0 g/dL LAB CHEMISTRY METHOD 12/16/2024 8:59 AM EST [facility] Total Bilirubin 0.6 0.0 - 1.4 mg/dL LAB CHEMISTRY METHOD 12/16/2024 8:59 AM EST [facility] Blood Venous blood specimen / Unknown Venipuncture / Unknown 12/16/2024 8:08 AM EST 12/16/2024 8:30 AM EST us Gab Santos MD LAB BLOOD ORDERABLES Final Result [facility] [address] [place] [address], * CT LUNG SCREENING LOW DOSE (07/13/2024 11:31 AM EDT) Anatomical Region Laterality Modality Computed Tomogra phy 07/12/2024 1:53 PM EDT Narrative 07/13/2024 11:[address] [facility] Diagnostic Imaging Department [address] [place] [address] Patient: ??HILDA GARCIA ?/Age/Sex: 1955 - 69 - F Unit#: ??[id number] ? Location/Status: ??SPDICATLS/REG CLI ? Mnemonic/Ordering Site: ??CTLUNGLD/SPCT Ordering Physician: ??KHRIS BRITO MD CT Lung Screening Low Dose [...] Procedure Note Kathy Santoyo MD - 08/09/[address] [facility] Diagnostic Imaging Department [address] [place] [address] Patient: DHARMESH GARCIAANGELA Richards /Age/Sex: 1955 - 69 - F Unit#: [id number] Location/Status: [facility] CLI Mnemonic/Ordering Site: [facility] Ordering Physician: KHRIS BRITO MD CT Lung Screening Low Dose [...] Date/Time: 07/13/24 1123 Sign date/Time: 07/13/24 1131 Khris Brito MD IM CT PROCEDURES Final Result from Last 3 Months or Most Recently Relevant to Health Maintenance Insurance MEDICARE Member Subscriber Plan / Payer (Ef fective 2019-Present) Name:Hilda Garcia Relation to Subscriber:Self Name:Hilda Garcia Payer ID:[id number] Group ID:[id number] Type:Not on file Address: [place] [address] [place] [address] Care Teams Electric Solderer Relationship Specialty Start Date End Date Tamra Perez MD [address] [place] [address] , [address] Physician Associ D/B/A: [facility] RALPH Bose PCP - General Internal Medicine 02/21/19
--- OUTSIDE RECORDS SUMMARY | 2025-01-29 16:58 | XMS_ITS | Clinical Summary ---
Author Organization [facility] Address [address] [place] [address] Care Team Providers Care Federal Air Marshal Name Role Phone MarcieradhajosedelilahRaymon NP Primary Care Provider [phone] Source Comments PLEASE NOTE, if this patient [...] by DE XA scan 03/18/2017 Overview (03/18/2017): [place] in 2016- spine- osteopenia, left femoral neck- [...] Plan of Treatment Not on file Insurance [place] MEDICAID Care Teams Federal Air Marshal Relationship Specialty Start Date End Date Raymon Reece NP [address] [place] [phone] PCP - General 09/01/18
== END 2025-01-29 14:36 | disposition home or self-care (01) ==
LOC: HO.HPS 14:12
PROVIDERS: PCP Internal Medicine; Visit Provider Hospitalist
DX: J41.0 Simple chronic bronchitis (principal); F17.200 Nicotine dependence, unspecified, uncomplicated; R91.8 Other nonspecific abnormal finding of lung field; R60.0 Localized edema
CPT/HCPCS: 99214; G2211

== ENCOUNTER → 2025-01-29 14:11 | Outpatient (BNVA) | payer OTHER, SELFPAY | PROVIDERS: PCP Internal Medicine; Visit Provider Hospitalist | DX: J41.0 Simple chronic bronchitis (principal); I27.20 Pulmonary hypertension, unspecified; R91.8 Other nonspecific abnormal finding of lung field; R60.0 Localized edema; F17.210 Nicotine dependence, cigarettes, uncomplicated | CPT/HCPCS: 99212 ==

== ENCOUNTER → 2025-03-23 14:42 | Outpatient (BNVA) | payer OTHER, SELFPAY | PROVIDERS: PCP Internal Medicine; Visit Provider Nurse Practitioner Family | DX: R45.851 Suicidal ideations (principal); A53.0 Latent syphilis, unspecified as early or late; G89.29 Other chronic pain | CPT/HCPCS: 96127; 99212 ==

== ENCOUNTER 2025-03-23 17:11 | Outpatient (AMB) | payer OTHER, SELFPAY ==
[2025-03-23 14:46] VITALS: BP 122/70; PULSE 69; O2SAT 90; BMI 33.3
--- NOTE | 2025-03-23 14:46 | A.OFFPC_ITS ---
Vital Signs 03/23/25 14:46 Height 5 ft Weight 170 lb 8 oz BMI 33.3 BP 122/70 Blood Pressure Location Lt brachial Position Sitting Pulse 69 Pulse Source Pulse Oximeter Pulse Oximetry (%) 90 L Oxygen Delivery Method Room Air Intake Visit Reasons: [facility] 03/12 Lower back pain/substance abuse Head Golf Professional Required: Yes Accompanied by: Self / Same As Patient Allergies aspirin Allergy (Intermediate, Verified 03/23/25 14:47) swelling, pruritus fentanyl Allergy (Intermediate, Verified 03/23/25 14:47) rash tramadol Allergy (Intermediate, Verified 03/23/25 14:47) nausea varenicline [From Chantix] Allergy (Intermediate, Verified 03/23/25 14:47) anxiety Tobacco use date assessed: 03/23/25 Fall risk assessment: No Falls in past year Last assessed Fall Risk: 03/23/25 Dental Screening Dental Screen Date: 03/23/25 Did you have a dental visit in the last 12 months?: No Did you have a dental problem in the last 6 months where you did not have access to dental care?: No Was dental information given to patient?: No HPI HPI Comments History of Present Illness Details 70 y/o Female patient who presents to [facility] for HDF. She was admitted at [facility] on 03/07 - 03/12 for evaluation of Psychotic episode with SI. Pt h as been dealing with lot of chronic pain all over her body - for the past 3 months her pain has been getting unbearable. For the past 3 weeks she has been using Cocaine to help with the pain and seems to have been using it on/off. States that she doesn't like Heroine and prefers Cocaine because of its color and the way it makes her feel. While in the Hospital her Blood work showed Positive for Syphilis. Pt reports an old infection many years ago and was treated with PCN in [place]. Denies IV drug use only Snorting through nose. Pt asymptomatic. I consulted with ID who recommended to wait 3 months and repeat Labs because it could be an old infection. I also consulted with [facility] reference Lab who recommended to hold treatment and repeat Lab work in 2-4 weeks. I leta defer this to PCP. [facility] Medical History (Updated 03/23/25 @ 16:47 by Adrianna Hummel NP) Suicide ideation Positive RPR test Lower extremity edema Nicotine dependence, cigarettes, uncomplicated Type 2 diabetes mellitus COPD (chronic obstructive pulmonary disease) Chondrocalcinosis of right knee Osteoarthritis of right knee Hypovitaminosis D Opioid dependence Essential hypertension Lumbar degenerative disc disease Surgical History History of cataract surgery History of colonoscopy History of cholecystectomy (~1998) History of total abdominal hysterectomy and bilateral salpingo-oophorectomy (~1993) History of section History of lumbar discectomy (~2009) Family History Father CHF (congestive heart failure) CVD (cardiovascular disease) Mother Medical history unknown Family/Other FH: mental illness Son No problems noted. Social History Housing: Apartment Alcohol intake: never Patient Tobacco Use Status: Current everyday Tobacco user Tobacco use type: Cigarette Cigarettes Per Day: 5 Years Smoked: (onset 11yo, 1/2-3/4ppd x 56yrs, 35pyh) e-Cigarette/Vaping Use: Never Used Second Hand Smoke Exposure: No service: No Current occupational status: unemployed Cognitive needs: Yes Hearing needs: No Vision needs: Yes Questionnaire PHQ-9 Over the last 2 weeks, how often have you been bothered by any of the following problems? 1. Little interest or pleasure in doing things: not at all 2. Feeling down, depressed, or hopeless: not at all 3. Trouble falling or staying asleep, or sleeping too much: not at all 4. Feeling tired or having little energy: not at all 5. Poor appetite or overeating: not at all 6. Feeling bad about yourself - or that you are a failure or have let yourself or your family down: not at all 7. Trouble concentrating on things, such as reading the newspaper or watching television: several days 8. Moving or speaking so slowly that other people could have noticed. Or the opposite - being so fidgety or restless that you have been moving around a lot m ore than usual: several days 9. Thoughts that you would be better off or of hurting yourself in some way: several days Total score: 3 Source: Developed by Drs. Chato LJania Rios Kurt Kroenke and colleagues, with an educational autumn from [email or web address]. Thrive Questionnaire Date Thrive assessed: 03/23/25 I am a: Patient What is your living situation today?: I have a steady place to live Within the past 12 months, did the food you bought not last and you didn't have the money to get more?: Never true Within the past 12 months, did you worry whether your food would run out before you got money to buy more?: Never true Do you have trouble paying for medicines?: No Do you have trouble getting transportation to medical appointments?: No Do you have trouble paying your heating and electricity bill?: No Do you have trouble taking care of your child, family member or friend?: No Do you have trouble with day-to-day activities such as bathing, preparing meals, shopping, managing finances, etc.?: No Are you currently unemployed and looking for a job?: Yes Are you interested in more education?: Yes Please select the resources that you would like help with: None Currently or been in a relationship where the following occur: No concerns reported THRIVE Score: 0 AUDIT C Alcohol Use Questionnaire (AUDIT-C) 1. How often do you have a drink containing alcohol?: Never 3. How often do you have six or more drinks on one occasion?: Never Total Score: 0 DESMOND-7 AMB Questionnaire DESMOND-7 Date DESMOND - 7 assessed: 03/23/25 Feeling nervous, anxious, or on edge: 0 = Not at all Not being able to stop or control worryin = More than half the days Worrying too much about different things: 2 = More than half the days Trouble relaxin = More than half the days Being so restless that it is hard to sit still: 2 = More than half the days Becoming easily annoyed or irritable: 0 = Not at all Feeling afraid as if something awful might happen: 0 = Not at all Total DESMOND-7 score (0-4 normal; 5-9 mild; 10-14 moderate; 15-21 severe): 8 Source: Developed by Jania Baker Kurt Kroenke and colleagues, with an educational autumn from [email or web address]. Review of Systems Const All systems reviewed & are unremarkable except as noted in HPI and below Physical exam (Primary Care) Vital Signs: Last Vital Signs Pulse 69 03/23/25 14:46 BP 122/70 03/23/25 14:46 Pulse Ox 90 L 03/23/25 14:46 Oxygen Delivery Method Room Air 03/23/25 14:46 BMI result Body Mass Index 33.3 Tobacco/Smoking Status: Tobacco use Status Tobacco use date assessed 03/23/25 03/23/25 14:53 Patient Tobacco Use Status Current everyday Tobacco 03/23/25 14:53 Tobacco use type Cigarette 03/23/25 14:53 e-Cigarette/Vaping Use Never Used 03/23/25 14:53 PHQ-9: PHQ-9 Score PHQ-9: Total score 3 03/23/25 14:53 Thrive Assessment: Date of Thrive Assessment Date Thrive assessed 03/23/25 03/23/25 14:53 Currently or been in a relationship where the following occur: No concerns reported Const General: no acute distress Orientation/consciousness: patient oriented x3 Limitations: language barrier Resp Effort & Inspection: normal respiratory effort Auscultation: clear to auscultation bilaterally Cardio Heart sounds: S1 normal heart sound present and S2 normal heart sound present Neuro General: patient oriented x3 Coding Level of Care Code Est Pt Level 4 (19387) Diagnoses Suicide ideation R45.851 Positive RPR test A53.0 Time Spent (min) 20 Assessment & Plan Assessment & Plan (1) Suicide ideation: Code(s): R45.851 - Suicidal ideations Category: Medical Plan: Stable. Denies SI or SA. 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 [facility] reference Lab recommended repeat Labs in 2-4 weeks. Per UptoDate diagnostic/screening Algorithm for Prior infection - recommend empiric Treatment. Will defer to PCP.
--- OUTSIDE RECORDS SUMMARY | 2025-03-23 14:46 | XMS_ITS | Clinical Summary ---
Author Organization [facility] Address [address] [place] [address] Phone Care Team Providers Care Cut And Cover Line Worker Name Role Phone Tamra Perez MD Primary Care Provider [phone] Allergies Active Allergy Reactions Criticality Noted Date Comments Aspirin Itching,Swelling 03/23/2019 Fentanyl Rash 03/23/2019 Tramadol Nausea And Vomiting 03/23/2019 Medications LORazepam (ATIVAN) 0.5 mg tablet Take 1 tablet (0.5 mg total) by mouth every 12 (twelve) hours for 3 days. Max Daily Amount: 1 mg 6 tablet 12/16/2024 Active Active Problems Problem Noted Date Diagnosed Date Anxiety 12/16/2024 Surgical History Surgery Date Site/Laterality Comments BACK SURGERY 2009 PROCEDURE: HISTORICAL BACK SURGERY; COMMENT: lumbar disc SECTION PROCEDURE: HISTORICAL ; COMMENT: x2 HYSTERECTOMY 1993 PROCEDURE: HISTORICAL TOTAL HYSTERECTOMY WITH BSO CHOLECYSTECTOMY 1998 PROCEDURE: HISTORICAL CHOLECYSTECTOMY; COMMENT: open Medical History Medical History Date Comments Hypertension 03/23/2019 DX:Hypertension Hypothyroidism 03/23/2019 DX:Hypothyroidis m Microalbuminuria 03/23/2019 DX:Microalbumin uria 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 V24, CMS/HCC V28) 03/23/2019 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); COMMENT: Sees nephrology Vitamin D deficiency 03/23/2019 DX:Vitamin D deficiency Asthma 01/24/2019 DX:Asthma Depression 03/23/2019 DX:Depression; C OMMENT: Thee DDD (degenerative disc disea se), lumbosacral 03/23/2019 DX:DDD (degenerative disc di sease), lumbosacral; COMMENT: 2015 H/o drug seeking behavior and broken pain contract w/ [facility] for low back pain Family History Medical History Relation Name Comments Heart failure Father CAD No Known Problems Mother 68 Diabetes Sister HTN Relation Name Status Comments Father Mother Sister Alive Social History Tobacco Use Types Packs/Day Years Used Date Smoking Tobacco: Every Day Cigarettes 0.5 56 Started: 03/26/1969 Smokeless Tobacco: Never Alcohol Use [...] or PCV21) 05/12/2024 05/12/2019, 01/29/2009 COVID-19 Vaccine (3 - season) 2024 02/20/2021, 01/30/2021 Lung Cancer [...] Procedure Name Priority Date/Time Associated Diagnosis Comments COMPREHENSIVE METABOLIC PANEL STAT 12/16/2024 8:[address] LUNG SCREENING LOW DOSE Routine 07/13/2024 11:31 AM EDT Encounter for screening for malignant neoplasm of respiratory organs from Last 3 Months or Most Recently Relevant to Health Maintenance Results * (ABNORMAL) Comprehensive metabolic panel (12/16/2024 8:08 AM EST) Sodium 137 133 - 145 mmol/L LAB CHEMISTRY METHOD 12/16/2024 8:59 AM [facility] Potassium 4.5 3.5 - 5.5 mmol/L LAB CHEMISTRY METHOD 12/16/2024 8:59 AM [facility] Chloride 107 96 - 110 mmol/L LAB CHEMISTRY METHOD 12/16/2024 8:59 AM [facility] CO2 21 21 - 32 mmol/L LAB CHEMISTRY METHOD 12/16/2024 8:59 AM [facility] Anion Gap 9 3 - 11 LAB CHEMISTRY METHOD 12/16/2024 8:59 AM [facility] Glucose 200(H) 70 - 100 mg/dL LAB CHEMISTRY METHOD 12/16/2024 8:59 AM [facility] BUN 19 5 - 25 mg/dL LAB CHEMISTRY METHOD 12/16/2024 8:59 AM [facility] Creatinine 1.37(H) 0.50 - 1.10 mg/dL LAB CHEMISTRY METHOD 12/16/2024 8:59 AM [facility] eGFR 42(L) >=60 mL/min/1. 73m2 LAB CHEMISTRY METHOD 12/16/2024 8:59 AM [facility] Comment:Calculation based on the??Chronic Kidney Disease Epidemiology Collaboration (CKD-EPI) equation refit??without adjustment for race. BUN/Creatinine Ratio 13.9 LAB CHEMISTRY METHOD 12/16/2024 8:59 AM [facility] Calcium 8.9 8.5 - 10.5 mg/dL LAB CHEMISTRY METHOD 12/16/2024 8:59 AM [facility] AST (SGOT) 16 10 - 42 unit/L LAB CHEMISTRY METHOD 12/16/2024 8:59 AM [facility] ALT (SGPT) 17 10 - 60 unit/L LAB CHEMISTRY METHOD 12/16/2024 8:59 AM [facility] Alkaline Phosphatase 114 42 - 121 unit/L LAB CHEMISTRY METHOD 12/16/2024 8:59 AM EST [facility] Total Protein 7.9 6.0 - 8.0 g/dL LAB CHEMISTRY METHOD 12/16/2024 8:59 AM EST [facility] Albumin 3.8 3.2 - 5.0 g/dL LAB CHEMISTRY METHOD 12/16/2024 8:59 AM EST [facility] Total Bilirubin 0.6 0.0 - 1.4 mg/dL LAB CHEMISTRY METHOD 12/16/2024 8:59 AM EST [facility] Blood Venous blood specimen / Unknown Venipuncture / Unknown 12/16/2024 8:08 AM EST 12/16/2024 8:30 AM EST us Gab Santos MD LAB BLOOD ORDERABLES Final Result [facility] [address] [place] [address], * CT LUNG SCREENING LOW DOSE (07/13/2024 11:31 AM EDT) Anatomical Region Laterality Modality Computed Tomogra phy 07/12/2024 1:53 PM EDT Narrative 07/13/2024 11:[address] [facility] Diagnostic Imaging Department [address] [place] [address] Patient: ??HILDA GARCIA ?/Age/Sex: 1955 - 69 - F Unit#: ??[id number] ? Location/Status: ??SPDICATLS/REG CLI ? Mnemonic/Ordering Site: [...] Procedure Note Kathy Santoyo MD - 08/09/2024 [facility] Diagnostic Imaging Department [address] [place] [id number] Patient: HILDA GARCIA Maurice /Age/Sex: 1955 - 69 - F Unit#: [id number] [facility] CLI Mnemonic/Ordering Site: [facility] Ordering Physician: KRYSTYNA BRITO MD CT Lung [...] Sign date/Time: 07/13/24 1131 Krystyna Brito MD IMG CT PROCEDURES Final Result from Last 3 Months or Most Recently Relevant to Health Maintenance [place] [address] [place] [address] MEDICARE Member Subscriber Plan / Payer (Ef fective 2019-Present) Name:Hilda Garcia Relation to Subscriber:Self Name:JoseHilda garcia Payer ID:[id number] Group ID:[id number] Type:Not on file Address: [place] [address] [place] [address] Care Teams Cut And Cover Line Worker Relationship Specialty Start Date End Date Tamra Perez MD [address] [place] [address] , [address] [facility] Physician Associ D/B/A: [facility] [place], [place] PCP - General Internal Medicine 02/21/19
== END 2025-03-23 17:12 | disposition home or self-care (01) ==
PROVIDERS: PCP Internal Medicine; Visit Provider Nurse Practitioner Family
DX: R45.851 Suicidal ideations (principal); A53.0 Latent syphilis, unspecified as early or late

== ENCOUNTER 2025-05-03 12:37 | Outpatient (AMB) | payer OTHER, SELFPAY ==
--- OUTSIDE RECORDS SUMMARY | 2025-05-03 12:41 | XMS_ITS | Clinical Summary ---
Author Organization [facility] Facility Address [address] [place] [address], [place] [address] Care Team Providers Care Scrub Wheel Operator Name Role Phone Tamra Keenan MD Primary Care Provider [phone] Social History Tobacco Use Types Packs/Day Years [...] Comments Breast Cancer Screening 1955 Pneumococcal Vaccine: 50+ Ye ars (1 of 2 - PCV) 1973 Colorectal Cancer Screening: Annual FOBT 2003 Colorectal Cancer Screening: Colonoscopy 2003 Colorectal Cancer Screening: Sigmoidoscopy 2003 Diabetes: Hemoglobin A1C 01/15/2020 Diabetes: Ophthalmology Exam 01/15/2020 Diabetes: Pedal Pulse Checked 01/15/2020 Diabetes: Sensory Foot Exam 01/15/2020 Diabetes: Visual Foot Exam 01/15/2020 Influenza Vaccine (#1) 2025 Hepatitis B Vaccine Aged Out No longe r eligible based on patient's age to complete this topic Insurance [facility] [place] [id number] Care Teams Scrub Wheel Operator Relationship Specialty Start Date End Date Tamra Keenan MD [address] [place], [place] PCP - General 08/29/19
--- OUTSIDE RECORDS SUMMARY | 2025-05-03 12:41 | XMS_ITS | Clinical Summary ---
Author Organization [facility] Address [address] [place] [address] Phone Care Team Providers Care Talent Recruiter Name Role Phone Tamra Perez MD Primary Care Provider [phone] Allergies Active Allergy Reactions Criticality Noted Date [...] seeking behavior and broken pain contract w/ [facility] for low back pain Family History Medical History Relation Name Comments Heart failure Father CAD No Known Problems Mother 68 Diabetes Sister HTN Relation Name Status Comments Father Mother Sister Alive Social History Tobacco Use Types Packs/Day Years Used Date Smoking Tobacco: Every Day Cigarettes 0.5 56.1 Started: 03/26/1969 Smokeless Tobacco: Never Alcohol Use [...] 67 12/16/2024 1:20 PM EST Temperature 36.9 C (98.4 F) 12/16/2024 1:20 PM EST Respiratory Rate 18 12/16/2024 7:40 AM EST [...] Vaccine (3 - season) 2024 02/20/2021, 01/30/2021 Influenza Vaccine (#1) 2025 , 10/14/2023, 10/12/2022, Additional history exists Lung Cancer Screening (Low Dose CT) 07/13/2025 07/13/2024, 10/08/2021 Diabetes: Annual GFR (Glomerular Filtration Rate) 12/16/2025 12/16/2024 Hypertension/CHF/CAD Annual BMP Blood Test 12/16/2025 12/16/2024 HIB Vaccines Aged Out No longer eligi [...] mmol/L LAB CHEMISTRY METHOD 12/16/2024 8:59 AM [facility] Potassium 4.5 3.5 - 5.5 mmol/L LAB CHEMISTRY METHOD 12/16/2024 8:59 AM [facility] Chloride 107 96 - 110 mmol/L LAB CHEMISTRY METHOD 12/16/2024 8:59 AM [facility] CO2 21 21 - 32 mmol/L LAB CHEMISTRY METHOD 12/16/2024 8:59 AM [facility] Anion Gap 9 3 - 11 LAB CHEMISTRY METHOD 12/16/2024 8:59 AM [facility] Glucose 200(H) 70 - 100 mg/dL LAB CHEMISTRY METHOD 12/16/2024 8:59 AM [facility] BUN 19 5 - 25 mg/dL LAB CHEMISTRY METHOD 12/16/2024 8:59 AM [facility] Creatinine 1.37(H) 0.50 - 1.10 mg/dL LAB CHEMISTRY METHOD 12/16/2024 8:59 AM [facility] eGFR 42(L) >=60 mL/min/1. 73m2 LAB CHEMISTRY METHOD 12/16/2024 8:59 AM [facility] Comment:Calculation based on the Chronic Kidney Disease Epidemiology Collaboration (CKD-EPI) equation refit without adjustment for race. BUN/Creatinine Ratio 13.9 LAB CHEMISTRY METHOD 12/16/2024 8:59 AM [facility] Calcium 8.9 8.5 - 10.5 mg/dL LAB CHEMISTRY METHOD 12/16/2024 8:59 AM [facility] AST (SGOT) 16 10 - 42 unit/L LAB CHEMISTRY METHOD 12/16/2024 8:59 AM [facility] ALT (SGPT) 17 10 - 60 unit/L LAB CHEMISTRY METHOD 12/16/2024 8:59 AM [facility] Alkaline Phosphatase 114 42 - [...] Final Result [facility] [address] [place] [address], * CT LUNG SCREENING LOW DOSE (07/13/2024 11:31 AM EDT) Anatomical Region Laterality Modality Computed Tomogra phy 07/12/2024 1:53 PM EDT Narrative 07/13/2024 11:31 AM EDT [facility] Diagnostic Imaging Department [address] [place] [address] Patient: HILDA GARCIA /Age/Sex: 1955 - 69 - F Unit#: [id number] Location/Status: SPDICATLS/REG CLI Mnemonic/Ordering Site: [facility] Ordering Physician: KRYSTYNA BRITO MD CT Lung Screening Low Dose - 07/12/24 - 1400 Report Status:Signed Indication: Greater than 20 total pack-year smoking history, asymptomatic current smoker Technique: Low-dose CT scan of the chest obtained as a lung cancer screening study. Multiplanar reformatted images were obtained. Dose reduction technique: ASIR (Adaptive statistical iterative reconstruction) and/or AEC (automated exposure control) DLP: 158.31 mGy-cm COMPARISON: September 2021. FINDINGS: Lack of intravenous contrast limits evaluation of the petra, vascular structures and visualized abdominal viscera. Lungs/airways: Trachea and central airways are patent. Linear scarring at the lung bases as well as the lingula, similar to prior. Consolidation in the right middle lobe; similar to prior. Differential lung attenuation in keeping with airway trapping. Scattered pulmonary nodules, similar to prior. For example, 3 mm solid nodule in the left lung apex (series 3, image 26). Calcified granulomata. Base of the neck, mediastinum, heart, chest wall, vessels: The assessment of hilar lymphadenopathy is difficult without the use of IV contrast. Calcified mediastinal lymph node which may represent stigmata of prior granulomatous disease. Thoracic aortic and coronary artery calcifications. [...] with LDCT in 12 months. Dictating Physician: KATHY SANTOYO MD Electronically Signed by: KATHY SANTOYO MD Dic Date/Time: 07/13/24 1123 Sign date/Time: 07/13/24 1131 Procedure Note Kathy Santoyo MD - 08/09/2024 [facility] Diagnostic Imaging Department [address] [place] [address] Patient: HILDA GARCIA /Age/Sex: 1955 - 69 - F Unit#: [id number] Location/Status: SPDICATLS/REG CLI Mnemonic/Ordering Site: [facility] Ordering Physician: KRYSTYNA BRITO MD CT Lung Screening Low Dose - 07/12/24 - 1399 Report Status:Signed Indication: Greater than 20 total [...] Most Recently Relevant to Health Maintenance Insurance [facility] MEDICARE Member Subscriber Plan / Payer (Ef fective 2019-Present) Name:Hilda Garcia Relation to Subscriber:Self Name:Hilda Garcia Payer ID:[id number] Group ID:[id number] Type:Not on file Address: [place] [address] [place] [address] Care Teams Talent Recruiter Relationship Specialty Start Date End Date Tamra Perez MD [address] [place] [address] , [address] [facility] D/B/A: [facility] RALPH Bose PCP - General Internal Medicine 02/21/19
--- OUTSIDE RECORDS SUMMARY | 2025-05-03 12:41 | XMS_ITS | Clinical Summary ---
Author Organization [facility] Address [address] [place] [address] Care Team Providers Care Vacuum Closing Machine Operator Name Role Phone MarcieradhajosedelilahRaymon NP Primary Care Provider [phone] Source Comments PLEASE NOTE, if this patient [...] by DE XA scan 03/18/2017 Overview (03/18/2017): [place] in 2016- spine- osteopenia, left femoral neck- [...] 95 05/08/2017 1:26 PM EDT Temperature 37.1 C (98.7 F) 05/08/2017 1:26 PM EDT Respiratory Rate 16 05/08/2017 1:26 PM EDT Oxygen Saturation 97% 05/08/2017 1:26 PM EDT Inhaled Oxygen Concentration - - Weight 69.4 kg (153 lb) 05/08/2017 1:26 PM EDT Height - - Body Mass Index - - Plan of Treatment Not on file Insurance [place] MEDICAID Care Teams Vacuum Closing Machine Operator Relationship Specialty Start Date End Date Raymon Reece NP [address] [place] [address] [facility] - General 09/01/18
--- NOTE | 2025-05-03 12:43 | A.OFFPC_ITS ---
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 Accompanied by: Self / Same As Patient Allergies aspirin Allergy (Intermediate, Verified 05/03/25 13:03) swelling, pruritus fentanyl Allergy (Intermediate, Verified 05/03/25 13:03) rash tramadol Allergy (Intermediate, Verified 05/03/25 13:03) nausea varenicline (From Chantix) Allergy (Intermediate, Verified 05/03/25 13:03) anxiety Medication List - Last Reconciled 05/03/25 by Tamra Perez MD amlodipine 10 mg PO DAILY 90 days atorvastatin 10 mg PO BEDTIME 90 days blood sugar diagnostic (FreeStyle Lite Strips) Use 1 test strip twice a day blood-glucose meter (FreeStyle Lite Meter kit) As directed bupropion HCl XL 150 mg PO DAILY cholecalciferol (vitamin D3) 50 mcg PO DAILY 90 days doxycycline hyclate 100 mg PO BID 7 days fluticasone propion-salmeterol 115-21 mcg/actuation (Advair HFA) 2 puffs inhalation Q12H 30 days furosemide (Lasix) 20 mg PO DAILY 2 days hydroxyzine pamoate 25 mg PO BID hydroxyzine pamoate 50 mg PO TID insulin glargine (Lantus Solostar U-100 Insulin) 15 units (0.15 mL) subcut QPM 90 days latanoprost 0.005% 0 drps ophthalmic (eye) lisinopril 20 mg PO DAILY 90 days mirtazapine 7.5 mg PO DAILY nicotine (polacrilex) 4 mg buccal Q8H PRN 30 days oxycodone 10 mg PO Q8H PRN 30 days pen needle, diabetic Use 1 pen needle once a day quetiapine 400 mg PO BEDTIME quetiapine 200 mg PO BEDTIME Tobacco use date assessed: 03/23/25 Dental Screening Dental Screen Date: 03/23/25 HPI HPI Comments History of Present Illness Details The patient is a 70-year-old female presenting for a physical examination and preventative care. She has a history of essential hypertension, managed with amlodipine 10 mg daily, and reports good control of her blood pressure. She also has hyperlipidemia, for which she takes atorvastatin 10 mg, with a laboratory test planned to check her cholesterol levels. The patient has chronic obstructive pulmonary disease (COPD) and uses Advair inhaler as prescribed by Dr. Washington. She also takes Lasix and Lantus for her type 2 diabetes mellitus, with a recent A1c of 6.8%. Her psychiatric history includes depression, managed with bupropion and mirtazapine, and anxiety, for which she has been prescribed medication by her psychiatrist. She reports a significant increase in anxiety, leading to a recent episode where she considered self-harm. The patient has a history of cocaine use, introduced by a neighbor during a period of emotional distress. She acknowledges the negative impact on her health and is seeking help to stop using cocaine. Her preventative care includes a tetanus vaccination, mammography, bone density scan, and colonoscopy. She has a history of hysterectomy and back surgery, and her family history includes a father who of heart failure at 71 and a mother who at 68 of unknown causes. [facility] Medical History (Updated 05/03/25 @ 13:15 by Tamra Perez MD) Suicide ideation Positive RPR test Lower extremity edema Nicotine dependence, cigarettes, uncomplicated Type 2 diabetes mellitus COPD (chronic obstructive pulmonary disease) Chondrocalcinosis of right knee Osteoarthritis of right knee Hypovitaminosis D Opioid dependence Essential hypertension Lumbar degenerative disc disease Surgical History History of cataract surgery History of colonoscopy History of cholecystectomy (~1998) History of total abdominal hysterectomy and bilateral salpingo-oophorectomy (~1993) History of section History of lumbar discectomy (~2009) Family History Father CHF (congestive heart failure) CVD (cardiovascular disease) Mother Medical history unknown Family/Other FH: mental illness Son No problems noted. Social History Housing: Apartment Alcohol intake: never Patient Tobacco Use Status: Current everyday Tobacco user Tobacco use type: Cigarette Cigarettes Per Day: 5 Years Smoked: (onset 11yo, 1/2-3/4ppd x 56yrs, 35pyh) e-Cigarette/Vaping Use: Never Used Second Hand Smoke Exposure: No service: No Current occupational status: unemployed Cognitive needs: Yes Hearing needs: No Vision needs: Yes Questionnaire PHQ-9 Over the last 2 weeks, how often have you been bothered by any of the following problems? 1. Little interest or pleasure in doing things: not at all 2. Feeling down, depressed, or hopeless: not at all 3. Trouble falling or staying asleep, or sleeping too much: not at all 4. Feeling tired or having little energy: not at all 5. Poor appetite or overeating: not at all 6. Feeling bad about yourself - or that you are a failure or have let yourself or your family down: not at all 7. Trouble concentrating on things, such as reading the newspaper or watching television: several days 8. Moving or speaking so slowly that other people could have noticed. Or the opposite - being so fidgety or restless that you have been moving around a lot more than usual: several days 9. Thoughts that you would be better off or of hurting yourself in some way: not at all Total score: 2 Depression Screening Interpretation: Negative Depression Screening Done: Yes 77662 - PHQ-9 Billing: Yes Source: Developed by Drs. Chato Alvarado, Jania Carpio, Nico Tang and colleagues, with an educational autumn from [employer]. Thrive Questionnaire Date Thrive assessed: 05/03/25 I am a: Patient What is your living situation today?: I have a steady place to live Within the past 12 months, did the food you bought not last and you didn't have the money to get more?: Never true Within the past 12 months, did you worry whether your food would run out before you got money to buy more?: Never true Do you have trouble paying for medicines?: No Do you have trouble getting transportation to medical appointments?: No Do you have trouble paying your heating and electricity bill?: No Do you have trouble taking care of your child, family member or friend?: No Do you have trouble with day-to-day activities such as bathing, preparing meals, shopping, managing finances, etc.?: No Are you currently unemployed and looking for a job?: Yes Are you interested in more education?: Yes Please select the resources that you would like help with: None Currently or been in a relationship where the following occur: No concerns reported THRIVE Score: 0 AUDIT C Alcohol Use Questionnaire (AUDIT-C) 1. How often do you have a drink containing alcohol?: Never Total Score: 0 Score Reviewed/Action Taken: No DESMOND-7 AMB Questionnaire DESMOND-7 Date DESMOND - 7 assessed: 05/03/25 Feeling nervous, anxious, or on edge: 0 = Not at all Not being able to stop or control worryin = Several days Worrying too much about different things: 1 = Several days Trouble relaxin = Several days Being so restless that it is hard to sit still: 1 = Several days Becoming easily annoyed or irritable: 0 = Not at all Feeling afraid as if something awful might happen: 0 = Not at all Total DESMOND-7 score (0-4 normal; 5-9 mild; 10-14 moderate; 15-21 severe): 4 Source: Developed by Drs. Chato Alvarado, Jania Carpio, Nico Tang and colleagues, with an educational autumn from [employer]. DESMOND-7 Assessment Billing DESMOND-7 Assessment Tool: DESMOND-7 Assessment 07973 Review of Systems Const All systems reviewed & are unremarkable except as noted in HPI and below Card Denies chest pain at rest, Denies chest pain with activity, Denies edema, Denies irregular heart rhythm, Denies claudication, Denies dyspnea, Denies dyspnea on exertion, Denies orthopnea, Denies paroxysmal nocturnal dyspnea and Denies slow heart rate Resp Denies cough, Denies dyspnea and Denies dyspnea on exertion GI Denies abdominal pain, Denies change in bowel habits, Denies excessive flatus, Denies nausea and Denies vomiting Denies urinary incontinence, Denies urinary hesitancy and Denies urinary urgency Musc Denies abnormal gait, Denies atrophy, Denies deformity and Denies limited range of motion Skin/Breast Denies bleeding lesions, Denies changing lesions and Denies rash Neuro Denies abnormal gait, Denies behavioral changes, Denies confusion and Denies lack of coordination Psych Denies behavioral changes and Denies confusion Physical exam (Primary Care) BMI result Body Mass Index 33.0 BMI Assessment/Plan discussion: High BMI High, discussed plan: lifestyle, weight reduction, dietary and physical activity Tobacco/Smoking Status: Tobacco use Status Tobacco use date assessed 03/23/25 05/03/25 12:45 Patient Tobacco Use Status Current everyday Tobacco 05/03/25 12:45 Tobacco use type Cigarette 05/03/25 12:45 e-Cigarette/Vaping Use Never Used 05/03/25 12:45 Are you ready to quit: No Tobacco cessation counseling provided: Yes Items discussed: Nicotine replacement and QuitWorks Relapse Prevention: discussed the importance of a supportive environment, discussed extending NRT, discussed negative mood or depression after quitting, weight gain after smoking is common and discussed dietary, exercise and/or lifestyle changes Number of minutes spent counselin Depression Screening Interpretation: Negative Thrive Assessment: Date of Thrive Assessment Date Thrive assessed 03/23/25 05/03/25 12:45 Currently or been in a relationship where the following occur: No concerns reported Const General: No confusion Orientation/consciousness: patient oriented x3 and No confusion HENMT Head: Yes normal to inspection, Yes normocephalic and Yes atraumatic Ears: external ears normal Eyes General: appearance normal, both eyes and all related structures Eyelids: Yes eyelids normal Conjunctivae: conjunctivae normal Neck Neck: Yes normal visual inspection and Yes supple Resp Effort & Inspection: normal respiratory effort Auscultation: clear to auscultation bilaterally Cardio Jugular venous distension: no JVD Rate: regular rate Rhythm: regular rhythm Heart sounds: S1 normal heart sound present and S2 normal heart sound present GI Inspection: Yes normal to inspection Palpation (GI): Soft to palpation and nontender Auscultation: normal bowel sounds Skin General skin exam: no rashes or lesions noted Neuro General: patient oriented x3, no focal motor deficits and No confusion Extrem General: Yes full ROM Psych Appearance: grossly normal Results AMB Hemoglobin A1c AMB Hemoglobin A1c 6.8 % Last Edit by BRIANNA Quintero on 05/03/25 13:0 5 Coding Level of Care Code Est Pt Level 4 (46005) Est Pt Prev Care >65y(35866) Diagnoses Adult general medical exam Z00.00 Simple chronic bronchitis J41.0 COPD type: chronic bronchitis Chronic bronchitis type: simple Type 2 diabetes mellitus without complication, with long-term current use of insulin E11.9; Z79.4 Diabetes mellitus half-way insulin use: with joint terminal attack controller use Diabetes mellitus complication status: without complication Cocaine use disorder F14.10 Mild major depression F32.0 Uncomplicated opioid dependence F11.20 Substance use status: uncomplicated Additional Codes PHQ-9 - 11622 - PHQ-9 Billing: Yes ([id number]) DESMOND-7 Assessment Billing - DESMOND-7 Assessment Tool: DESMOND-7 Assessment 75156 ([id number]) Time Spent (min) 35 Assessment & Plan Assessment & Plan (1) Adult general medical exam: Code(s): Z00.00 - Encounter for general adult medical examination without abnormal findings Category: Medical (2) COPD (chronic obstructive pulmonary disease): Code(s): J44.9 - Chronic obstructive pulmonary disease, unspecified Category: Medical Qualifiers: COPD type: chronic bronchitis Chronic bronchitis type: simple Qualified Code(s): J41.0 - Simple chronic bronchitis (3) Type 2 diabetes mellitus: Code(s): E11.9 - Type 2 diabetes mellitus without complications Category: Medical Qualifiers: Diabetes mellitus half-way insulin use: with half-way use Diabetes mellitus complication status: without complication Qualified Code(s): E11.9 - Type 2 diabetes mellitus without complications; 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 A bone density scan will be ordered to assess for osteoporosis, given the lack of previous testing. A colonoscopy referral will be made to a local facility, as her last was in 2010. The patient is advised to continue her current medications for hypertension, hyperlipidemia, COPD, and diabetes, with a follow-up on her cholesterol levels through laboratory testing. She is encouraged to maintain her reduced smoking habit and to seek support for cessation of cocaine use, with a referral to a Suboxone clinic for addiction management. Psychiatric support will continue, with a focus on managing her anxiety and depression, and she is advised to follow up with her psychiatrist for ongoing care. Patient was informed and verbally consented to the use of an ambient scribe for clinic note documentation during this visit. Orders: Orders XR DEXA axial skeleton Today Z78.0 - Asymptomatic menopausal state Microalbumin, Random (w Creat) Today R80.9 - Proteinuria, unspecified Vitamin D 25-OH Total Today E55.9 - Vitamin D deficiency, unspecified Comprehensive Portis. Panel Fast Today E11.9 - Type 2 diabetes mellitus without complications, Z79.4 - correction (current) use of insulin AMB Hemoglobin A1c Today E11.9 - Type 2 diabetes mellitus without complications, Z79.4 - correction (current) use of insulin Lipid Panel Today E78.5 - Hyperlipidemia, unspecified Referrals Addiction Medicine Referral F14.10 - Cocaine abuse, uncomplicated Open Access Screening Colonoscopy Referral Z12.12 - Encounter for screening for malignant neoplasm of rectum
[2025-05-03 12:51] VITALS: BP 130/78; BMI 33.0
== END 2025-05-03 13:20 | disposition home or self-care (01) ==
LOC: HO.HMCH 12:38
PROVIDERS: PCP Internal Medicine; Visit Provider Internal Medicine
DX: Z00.00 Encounter for general adult medical examination without abnormal findings (principal); J41.0 Simple chronic bronchitis; E11.9 Type 2 diabetes mellitus without complications; Z79.4 Long term (current) use of insulin; F14.10 Cocaine abuse, uncomplicated; F11.20 Opioid dependence, uncomplicated; F32.0 Major depressive disorder, single episode, mild

== ENCOUNTER → 2025-05-03 12:37 | Outpatient (BNVA) | payer OTHER, SELFPAY | PROVIDERS: PCP Internal Medicine; Visit Provider Internal Medicine | DX: Z00.00 Encounter for general adult medical examination without abnormal findings (principal); J41.0 Simple chronic bronchitis; E11.9 Type 2 diabetes mellitus without complications; F32.A Depression, unspecified; F14.10 Cocaine abuse, uncomplicated; F32.0 Major depressive disorder, single episode, mild; F11.20 Opioid dependence, uncomplicated; I10 Essential (primary) hypertension; E78.5 Hyperlipidemia, unspecified; R80.9 Proteinuria, unspecified; Z79.899 Other long term (current) drug therapy; Z78.0 Asymptomatic menopausal state; Z79.4 Long term (current) use of insulin | CPT/HCPCS: 83036; 96127; 99212; 99397 ==

== ENCOUNTER 2025-09-11 13:16 | Outpatient (AMB) | payer OTHER, SELFPAY ==
[2025-09-11 13:22] VITALS: BP 184/70; PULSE 72; RESP 19; O2SAT 94; BMI 35.7
--- NOTE | 2025-09-11 13:22 | A.OFFPC_ITS ---
Vital Signs 09/11/25 13:22 Height 5 ft Weight 183 lb BMI 35.7 BP 184/70 H Blood Pressure Location Lt brachial Position Sitting Respiration 19 Pulse 72 Pulse Source Pulse Oximeter Temp Source Temporal Artery Scan Pulse Oximetry (%) 94 Oxygen Delivery Method Room Air Intake Visit Reasons: dm Log Hooker Required: No Accompanied by: Self / Same As Patient Allergies aspirin Allergy (Intermediate, Verified 09/11/25 14:05) swelling, pruritus fentanyl Allergy (Intermediate, Verified 09/11/25 14:05) rash tramadol Allergy (Intermediate, Verified 09/11/25 14:05) nausea varenicline (From Chantix) Allergy (Intermediate, Verified 09/11/25 14:05) anxiety Medication List - Last Reconciled 09/11/25 by Tamra Perez MD amlodipine 10 mg PO DAILY 90 days atorvastatin 10 mg PO BEDTIME 90 days blood sugar diagnostic (FreeStyle Lite Strips) Use 1 test strip twice a day blood-glucose meter (FreeStyle Lite Meter kit) As directed bupropion HCl XL 150 mg PO DAILY cholecalciferol (vitamin D3) 50 mcg PO DAILY 90 days doxycycline hyclate 100 mg PO BID 7 days fluticasone propion-salmeterol 115-21 mcg/actuation (Advair HFA) 2 puffs inhalation Q12H 30 days furosemide (Lasix) 20 mg PO DAILY 2 days hydroxyzine pamoate 25 mg PO BID hydroxyzine pamoate 50 mg PO TID insulin glargine (Lantus Solostar U-100 Insulin) 20 units (0.2 mL) subcut QPM 90 days latanoprost 0.005% 0 drps ophthalmic (eye) lisinopril 20 mg PO DAILY 90 days mirtazapine 7.5 mg PO DAILY nicotine (polacrilex) 4 mg buccal Q8H PRN 30 days oxycodone 10 mg PO Q8H PRN 30 days pen needle, diabetic Use 1 pen needle once a day quetiapine 400 mg PO BEDTIME quetiapine 200 mg PO BEDTIME Tobacco use date assessed: 09/11/25 Fall risk assessment: No Falls in past year Last assessed Fall Risk: 09/11/25 Dental Screening Dental Screen Date: 09/11/25 Did you have a dental visit in the last 12 months?: No Did you have a dental problem in the last 6 months where you did not have access to dental care?: No Was dental information given to patient?: No HPI HPI Comments History of Present Illness Details The patient is a 70-year-old female presenting for a follow-up visit for management of chronic conditions and medication review. Her current medications include amlodipine 10 mg, atorvastatin 10 mg, Lantus 20 units, and lisinopril 20 mg. She has diabetes mellitus type 2 with an A1c of 6.9% today. I will increase mg to 40 mg due to elevated blood pressure today. Labs will be order and her LDL goal should be less than 70. She has COPD follow by pulmonology. Due to chronic pain she has opioid dependence and is on opiates. For psychiatric management, she is followed by a psychiatrist and takes bupropion, mirtazapine, and Seroquel. She also has a prescription for oxycodone. The patient reports a smoking history and continues to smoke and last lung cancer screening was last year. She has known drug allergies to aspirin, fentanyl, tramadol, and Chantix. A CT scan was performed last year. [facility] Medical History (Updated 09/11/25 @ 15:07 by Tamra Perez MD) Cocaine use disorder Suicide ideation Positive RPR test Lower extremity edema Nicotine dependence, cigarettes, uncomplicated Type 2 diabetes mellitus COPD (chronic obstructive pulmonary disease) Chondrocalcinosis of right knee Osteoarthritis of right knee Hypovitaminosis D Opioid dependence Essential hypertension Lumbar degenerative disc disease Surgical History History of cataract surgery History of colonoscopy History of cholecystectomy (~1998) History of total abdominal hysterectomy and bilateral salpingo-oophorectomy (~1993) History of section History of lumbar discectomy (~2009) Family History Father CHF (congestive heart failure) CVD (cardiovascular disease) Mother Medical history unknown Family/Other FH: mental illness Son No problems noted. Social History Housing: Apartment Alcohol intake: never Patient Tobacco Use Status: Current everyday Tobacco user Tobacco use type: Cigarette Cigarettes Per Day: 5 Years Smoked: (onset 11yo, 1/2-3/4ppd x 56yrs, 35pyh) e-Cigarette/Vaping Use: Never Used Second Hand Smoke Exposure: No service: No Current occupational status: unemployed Cognitive needs: Yes Hearing needs: No Vision needs: Yes Questionnaire Thrive Questionnaire Date Thrive assessed: 09/11/25 I am a: Patient What is your living situation today?: I have a steady place to live Within the past 12 months, did the food you bought not last and you didn't have the money to get more?: Never true Within the past 12 months, did you worry whether your food would run out before you got money to buy more?: Never true Do you have trouble paying for medicines?: No Do you have trouble getting transportation to medical appointments?: No Do you have trouble paying your heating and electricity bill?: No Do you have trouble taking care of your child, family member or friend?: No Do you have trouble with day-to-day activities such as bathing, preparing meals, shopping, managing finances, etc.?: No Are you currently unemployed and looking for a job?: Yes Are you interested in more education?: Yes Please select the resources that you would like help with: None Currently or been in a relationship where the following occur: No concerns reported THRIVE Score: 0 DESMOND-7 AMB Questionnaire DESMOND-7 Date DESMOND - 7 assessed: 05/03/25 Source: Developed by Drs. Chato Alvarado, Jania Carpio, Nico Tang and colleagues, with an educational autumn from [employer]. Review of Systems Const All systems reviewed & are unremarkable except as noted in HPI and below Card Denies chest pain at rest, Denies chest pain with activity, Denies edema, Denies irregular heart rhythm, Denies claudication, Denies dyspnea, Denies dyspnea on exertion, Denies orthopnea, Denies paroxysmal nocturnal dyspnea and Denies slow heart rate Resp Denies cough, Denies dyspnea and Denies dyspnea on exertion Physical exam (Primary Care) Vital Signs: Last Vital Signs Pulse 72 09/11/25 13:22 Resp 19 09/11/25 13:22 BP 184/70 H 09/11/25 13:22 Pulse Ox 94 09/11/25 13:22 Oxygen Delivery Method Room Air 09/11/25 13:22 BMI result Body Mass Index 35.7 BMI Assessment/Plan discussion: High BMI High, discussed plan: lifestyle, weight reduction, dietary and physical activity Tobacco/Smoking Status: Tobacco use Status Tobacco use date assessed 09/11/25 09/11/25 13:25 Patient Tobacco Use Status Current everyday Tobacco 09/11/25 13:25 Tobacco use type Cigarette 09/11/25 13:25 e-Cigarette/Vaping Use Never Used 09/11/25 13:25 Are you ready to quit: Yes Tobacco cessation counseling provided: Yes Items discussed: Nicotine replacement and QuitWorks Relapse Prevention: discussed the importance of a supportive environment, discussed extending NRT, discussed negative mood or depression after quitting, weight gain after smoking is common and discussed dietary, exercise and/or lifestyle changes Number of minutes spent counselin CPT code: 72384 - 4-10 Minutes Thrive Assessment: Date of Thrive Assessment Date Thrive assessed 09/11/25 09/11/25 13:25 Currently or been in a relationship where the following occur: No concerns reported Resp Effort & Inspection: normal respiratory effort Auscultation: clear to auscultation bilaterally Cardio Jugular venous distension: no JVD Rate: regular rate Rhythm: regular rhythm Heart sounds: S1 normal heart sound present and S2 normal heart sound present Extrem General: Yes full ROM Results AMB Hemoglobin A1c AMB Hemoglobin A1c 6.9 % Last Edit by Smita Gruber MA on 09/11/25 13:51 Results Reviewed Results Reviewed: Laboratory Last Values Hgb A1c (Clinic) 6.9 % (4.0-6.0) H 09/11/25 13:32 Coding Level of Care Code Est Pt Level 4 (87964) Complex EM visit Add On G2211 Diagnoses Type 2 diabetes mellitus without complication, with long-term current use of insulin E11.9; Z79.4 Diabetes mellitus tank terminal gauger insulin use: with retirement use Diabetes mellitus complication status: without complication Essential hypertension I10 Hyperlipidemia LDL goal <70 E78.5 Uncomplicated opioid dependence F11.20 Substance use status: uncomplicated Mild major depression F32.0 Simple chronic bronchitis J41.0 COPD type: chronic bronchitis Chronic bronchitis type: simple Nicotine dependence, cigarettes, uncomplicated F17.210 Additional Codes Vital Signs *Quality* - CPT code: 76989 - 4-10 Minutes ([id number]) Time Spent (min) 24 Assessment & Plan Assessment & Plan (1) Type 2 diabetes mellitus: Code(s): E11.9 - Type 2 diabetes mellitus without complications Category: Medical Qualifiers: Diabetes mellitus retirement insulin use: with tank terminal gauger use Diabetes mellitus complication status: without complication Qualified Code(s): E11.9 - Type 2 diabetes mellitus without complications; Z79.4 - termite control service representative (current) use of insulin (2) Essential hypertension: Code(s): I10 - Essential (primary) hypertension Category: Medical (3) Hyperlipidemia LDL goal <70: Code(s): E78.5 - Hyperlipidemia, unspecified Category: Medical (4) Opioid dependence: Code(s): F11.20 - Opioid dependence, uncomplicated Category: Medical Qualifiers: Substance use status: uncomplicated Qualified Code(s): F11.20 - Opioid dependence, uncomplicated (5) Mild major depression: Code(s): F32.0 - Major depressive disorder, single episode, mild Category: Medical (6) COPD (chronic obstructive pulmonary disease): Code(s): J44.9 - Chronic obstructive pulmonary disease, unspecified Category: Medical Qualifiers: COPD type: chronic bronchitis Chronic bronchitis type: simple Qualified Code(s): J41.0 - Simple chronic bronchitis (7) Nicotine dependence, cigarettes, uncomplicated: Comment: (current smoker, onset 11yo, 1/2-3/4ppd x 56yrs, 35pyh) Code(s): F17.210 - Nicotine dependence, cigarettes, uncomplicated Category: Medical Plan Plan 1. Hypertension The patient's hypertension is managed with amlodipine 10 mg and lisinopril. The dosage of lisinopril will be increased from 20 mg to 40 mg. 2. Type 2 Diabetes Mellitus The patient will continue her current dose of Lantus at 20 units daily for management of diabetes. 3. Hyperlipidemia The patient will continue taking atorvastatin 10 mg for hyperlipidemia. 4. Psychiatric Disorder The patient will continue her current regimen of bupropion, mirtazapine, and Seroquel and is advised to continue follow-up with her psychiatrist. 5. Tobacco Use The patient was advised to stop smoking. Orders: Orders AMB Hemoglobin A1c Today E11.9 - Type 2 diabetes mellitus without complications, Z79.4 - termite control service representative (current) use of insulin Lipid Panel Today E78.5 - Hyperlipidemia, unspecified Microalbumin, Random (w Creat) Today R80.9 - Proteinuria, unspecified Vitamin B12 and Folate Today E53.8 - Deficiency of other specified B group vitamins Comprehensive [place]. Panel Fast Today I10 - Essential (primary) hypertension XR DEXA axial skeleton Today Z78.0 - Asymptomatic menopausal state Vitamin D 25-OH Total Today E55.9 - Vitamin D deficiency, unspecified MM tomosynthesis screening BI Today Z12.31 - Encounter for screening mammogram for malignant neoplasm of breast Referrals Lung Cancer Screening Referral F17.210 - Nicotine dependence, cigarettes, uncomplicated Medications: New lisinopril 40 mg PO DAILY 90 tabs 1RF 90 days Discontinued lisinopril Discontinued Reason: Patient Completed Course 20 mg PO DAILY 90 days 90 tabs 1RF E11.9 - Type 2 diabetes mellitus without complications, Z79.4 - termite control service representative (current) use of insulin
--- OUTSIDE RECORDS SUMMARY | 2025-09-12 05:53 | XMS_ITS | Clinical Summary ---
Author Organization [facility] Address [address] [place] [address] Phone Care Team Providers Care Carbonation Equipment Tender Name Role Phone Tamra Perez MD Primary Care Provider [phone] Allergies Active Allergy Reactions Criticality Noted Date [...] Encounters Date Type Department Care Team Description 07/03/2025 Telephone Lung Screening Program - [facility] [address] [facility] [address] [place] [address] Barb Carpio MA from Last 3 Months Surgical History Surgery [...] seeking behavior and broken pain contract w/ [facility] for low back pain Family History Medical History Relation Name Comments Heart failure Father CAD No Known Problems Mother 68 Diabetes Sister HTN Relation Name Status Comments Father Mother Sister Alive Social History Tobacco Use Types Packs/Day Years Used Date Smoking Tobacco: Every Day Cigarettes 0.5 56.5 Started: 03/26/1969 Smokeless Tobacco: Never Alcohol Use [...] Last Done Comments Breast Cancer Screening 1955 Colorectal Cancer Screening: Colonoscopy 1955 Diabetes: Annual Foot Exam 02/19/1964 Diabetes: Annual Retina Eye Exam 02/19/1964 Hepatitis A Vaccines (1 of 2 - Risk 2-dose series) 1973 RSV Immunization Adult Patients (1 - Risk 50-74 years 1-dose series) 02/19/2004 Zoster Vaccines (1 of 2) 02/19/2004 Hepatitis B Vaccines (2 of 3 - 19+ 3-dose series) 08/04/2018 07/07/2018 DTaP,Tdap,and Td Vaccines (2 - Td or Tdap) 05/23/2019 05/23/2009 Cholesterol Screening (Lipid Panel) 09/26/2022 Falls Risk Assessment 09/26/2022 Hepatitis C Screening 09/26/2022 Medicare Annual Wellness Visit 09/26/2022 Osteoporosis Screening (Bone Density Screening) 09/26/2022 Social Influencers of Health Screening 09/26/2022 Diabetes: Annual Urine Albumin-Creatinine Ratio (uACR) 10/10/2022 Diabetes: Blood Sugar Control Test (HGBA1C) 10/10/2022 Pneumococcal Vaccine: 50+ Years (3 of 3 - PCV20 or PCV21) 05/12/2024 05/12/2019, 01/29/2009 Depression Screening 10/25/2024 COVID-19 Vaccine (3 - season) 2025 02/20/2021, 01/30/2021 Influenza Vaccine (#1) 2025 , [...] mmol/L LAB CHEMISTRY METHOD 12/16/2024 8:59 AM [facility] Potassium 4.5 3.5 - 5.5 mmol/L LAB CHEMISTRY METHOD 12/16/2024 8:59 AM [facility] Chloride 107 96 - 110 mmol/L LAB CHEMISTRY METHOD 12/16/2024 8:59 AM [facility] CO2 21 21 - 32 mmol/L LAB CHEMISTRY METHOD 12/16/2024 8:59 AM [facility] Anion Gap 9 3 - 11 LAB CHEMISTRY METHOD 12/16/2024 8:59 AM [facility] Glucose 200(H) 70 - 100 mg/dL LAB CHEMISTRY METHOD 12/16/2024 8:59 AM [facility] BUN 19 5 - 25 mg/dL LAB CHEMISTRY METHOD 12/16/2024 8:59 AM [facility] Creatinine 1.37(H) 0.50 - 1.10 mg/dL LAB CHEMISTRY METHOD 12/16/2024 8:59 AM [facility] eGFR 42(L) >=60 mL/min/1. 73m2 LAB CHEMISTRY METHOD 12/16/2024 8:59 AM [facility] Comment:Calculation based on the Chronic Kidney Disease Epidemiology Collaboration (CKD-EPI) equation refit without adjustment for race. BUN/Creatinine Ratio 13.9 LAB CHEMISTRY METHOD 12/16/2024 8:59 AM [facility] Calcium 8.9 8.5 - 10.5 mg/dL LAB CHEMISTRY METHOD 12/16/2024 8:59 AM [facility] AST (SGOT) 16 10 - 42 unit/L LAB CHEMISTRY METHOD 12/16/2024 8:59 AM [facility] ALT (SGPT) 17 10 - 60 unit/L LAB CHEMISTRY METHOD 12/16/2024 8:59 AM [facility] Alkaline Phosphatase 114 42 - 121 unit/L LAB CHEMISTRY METHOD 12/16/2024 8:[address] [facility] Total Protein 7.9 6.0 - 8.0 g/dL LAB CHEMISTRY METHOD 12/16/2024 8:[address] [facility] Albumin 3.8 3.2 - 5.0 g/dL LAB CHEMISTRY METHOD 12/16/2024 8:59 AM [facility] Total Bilirubin 0.6 0.0 - 1.4 mg/dL LAB CHEMISTRY METHOD 12/16/2024 8:59 AM [facility] Blood Venous blood specimen / Unknown Venipuncture / Unknown 12/16/2024 8:08 AM EST 12/16/2024 8:30 AM EST us Gab Santos MD LAB BLOOD ORDERABLES Final Result [facility] [address] [place] [address], * CT LUNG SCREENING LOW DOSE (07/13/2024 11:31 AM EDT) Anatomical Region Laterality Modality Computed Tomogra phy 07/12/2024 1:53 PM EDT Narrative 07/13/2024 11:31 AM EDT [facility] Diagnostic Imaging Department [address] [place] [address] Patient: HILDA GARCIA D.O.B./Age/Sex: 1955 - 69 - F Unit#: [id number] Location/Status: SPDICATLS/REG CLI Mnemonic/Ordering Site: [facility] Ordering Physician: KRYSTYNA BRITO MD CT Lung [...] MD Electronically Signed by: KATHY SANTOYO MD [facility] Date/Time: 07/13/24 1123 Sign date/Time: 07/13/24 1131 Procedure Note Kathy Santoyo MD - 08/09/2024 [facility] Diagnostic Imaging Department [address] [place] [id number] Patient: HILDA GARCIA Maurice /Age/Sex: 1955 - 69 - F Unit#: [id number] Location/Status: SPDICATLS/REG CLI Mnemonic/Ordering Site: [facility] Ordering Physician: KRYSTYNA BRITO MD CT Lung [...] Most Recently Relevant to Health Maintenance [place] [address] [place] [address] MEDICARE Member Subscriber Plan / Payer (Ef fective 2019-Present) Name:Hilda Garcia Relation to Subscriber:Self Name:Hilda Garcia Payer ID:[id number] Group ID:[id number] Type:Not on file Address: [place] [address] [place] [address] Care Teams Carbonation Equipment Tender Relationship Specialty Start Date End Date Tamra Perez MD [address] [place] [address] , [address] [facility] D/B/A: [facility] RALPH Bose PCP - General Internal Medicine 02/21/19
--- OUTSIDE RECORDS SUMMARY | 2025-09-12 05:54 | XMS_ITS | Clinical Summary ---
Author Organization [facility] Address [address] [place] [address], [place] [address] Care Team Providers Care Turn Laster Name Role Phone Tamra Keenan MD Primary Care Provider [phone] Social History Tobacco Use Types Packs/Day Years [...] patient's age to complete this topic Insurance [facility] [place] [id number] Care Teams Turn Laster Relationship Specialty Start Date End Date Tamra Keenan MD [address] [place], [place] PCP - General 08/29/19
== END 2025-09-11 14:21 | disposition home or self-care (01) ==
LOC: HO.HMCH 13:17
PROVIDERS: PCP Internal Medicine; Visit Provider Internal Medicine
DX: E11.9 Type 2 diabetes mellitus without complications (principal); Z79.4 Long term (current) use of insulin; I10 Essential (primary) hypertension; E78.5 Hyperlipidemia, unspecified; F11.20 Opioid dependence, uncomplicated; F32.0 Major depressive disorder, single episode, mild; J41.0 Simple chronic bronchitis; F17.210 Nicotine dependence, cigarettes, uncomplicated

== ENCOUNTER → 2025-09-11 13:16 | Outpatient (BNVA) | payer OTHER, SELFPAY | PROVIDERS: PCP Internal Medicine; Visit Provider Internal Medicine | DX: E11.9 Type 2 diabetes mellitus without complications (principal); I10 Essential (primary) hypertension; E78.5 Hyperlipidemia, unspecified; F11.20 Opioid dependence, uncomplicated; F32.0 Major depressive disorder, single episode, mild; J41.0 Simple chronic bronchitis; F17.210 Nicotine dependence, cigarettes, uncomplicated; Z79.4 Long term (current) use of insulin | CPT/HCPCS: 83036; 99212 ==